=== PATIENT | male | born 1975 | race African-American/Black ===

== ENCOUNTER 2017-07-12 21:28 | Emergency (ER) | payer OTHER ==
[2017-07-12 21:42] VITALS: BP 130/69; PULSE 90; RESP 20; TEMP 100.5
[2017-07-12] MEDS ORDERED: HYDROcodone/APAP 5-325MG 1 EACH TAB PO STA (22:03)
[2017-07-12] MEDS ORDERED: IBUPROFEN 400 MG TAB PO STA (22:03)
--- NOTE | 2017-07-12 22:18 | ED ---
Back Pain HPI - General Chief Complaint: Back Pain/Injury Stated Complaint: back pain Time Seen by Provider: 07/12/17 21:53 Source: patient Limitations: no limitations - History of Present Illness Initial Comments: This patient is a 42-year-old man who presents with complaint of left low back pain. 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 Patient states that he has previously pulled muscles in his back and it feels like that's what is going on today. He describes the pain is kind of aching, Burning. The pain is worse with certain movements. Better if he is just resting. Patient denies any radiation of the pain. He is not having any weakness or numbness. No change in bladder or bowel. No abdominal pain. MD Complaint: back pain -: hour(s) Similar Symptoms Previously: Yes Place: work Radiation: none Severity: moderate Quality: burning, aching Consistency: intermittent Improves With: immobilization Worsens With: movement Context: turning/twisting, bending Associated Symptoms: denies other symptoms - Related Data Previous Rx's Medication Instructions Recorded Ibuprofen 800 mg PO Q8H #24 tablet 07/12/17 Methocarbamol [Robaxin-750] 750 mg PO TID PRN #30 tablet 07/12/17 Allergies Allergy/AdvReac Type Severity Reaction Status Date / Time No Known Allergies Allergy Verified 07/12/17 21:48 Review of Systems ROS Statement: Those systems with pertinent positive or pertinent negative responses have been documented in the HPI. ROS Other: All systems not noted in ROS Statement are negative. Constitutional: Denies: fever, chills, weakness Respiratory: Denies: cough, dyspnea Cardiovascular: Denies: chest pain, edema Gastrointestinal: Denies: abdominal pain, diarrhea, constipation Genitourinary: Denies: dysuria, frequency, hematuria, discharge, testicular pain Musculoskeletal: Reports: as per HPI, back pain Skin: Denies: rash Neurological: Denies: weakness, numbness, paresthesias Past Medical History Additional Past Medical History / Comment(s): deg disc disease History of Any Multi-Drug Resistant Organisms: None Reported Past Surgical History: Orthopedic Surgery Additional Past Surgical History / Comment(s): left knee arthroscopy Past Psychological History: Anxiety, Depression Smoking Status: Current every day smoker Past Alcohol Use History: Occasional Past Drug Use History: Marijuana General Exam Limitations: no limitations General appearance: alert, in no apparent distress Head exam: Present: atraumatic, normocephalic Eye exam: Present: normal appearance. Absent: scleral icterus, conjunctival injection ENT exam: Present: normal oropharynx Neck exam: Present: normal inspection, full ROM Respiratory exam: Present: normal lung sounds bilaterally. Absent: respiratory distress, wheezes, rales, rhonchi, stridor, chest wall tenderness Cardiovascular Exam: Present: regular rate, normal rhythm, normal heart sounds. Absent: systolic murmur, diastolic murmur, rubs, gallop GI/Abdominal exam: Present: soft. Absent: distended, tenderness, guarding, rebound, mass Extremities exam: Present: normal inspection, normal capillary refill. Absent: pedal edema, calf tenderness Back exam: Present: normal inspection, muscle spasm, paraspinal tenderness. Absent: CVA tenderness (R), CVA tenderness (L), vertebral tenderness Neurological exam: Present: alert, reflexes normal. Absent: motor sensory deficit Skin exam: Present: warm, dry, intact, normal color. Absent: rash Course Vital Signs 07/12/17 21:40 Temperature 100.5 F H Pulse Rate 90 Respiratory 20 Rate Blood Pressure 130/69 O2 Sat by Pulse 97 Oximetry Medical Decision Making - Lab Data Lab Results 07/12/17 Range/Units 22:34 Urine Color Yellow Urine Appearance Clear (Clear) Urine pH 5.5 (5.0-8.0) Ur Specific [place] 1.026 (1.001-1.035) Urine Protein Trace H (Negative) Urine Glucose (UA) Negative (Negative) Urine Ketones 1+ H (Negative) Urine Blood Moderate H (Negative) Urine Nitrite Negative (Negative) Urine Bilirubin Negative (Negative) Urine Urobilinogen 2.0 (<2.0) mg/dL Ur Leukocyte Esterase Negative (Negative) Urine RBC 7 H (0-5) /hpf Urine WBC 1 (0-5) /hpf Ur Squamous Epith Cells <1 (0-4) /hpf Urine Mucus Rare H (None) /hpf Disposition Clinical Impression: Low back strain Disposition: HOME SELF-CARE Condition: Good Instructions: Acute Low Back Pain (ED) Prescriptions: Ibuprofen 800 mg PO Q8H #24 tablet Methocarbamol [Robaxin-750] 750 mg PO TID PRN #30 tablet PRN Reason: pain Referrals: None,Stated [Primary Care Provider] - 1-2 days
[2017-07-12 22:47] LABS: Appearance,Urine Clear (Clear); Bilirubin,Urine Negative (Negative); Glucose,Urine (UA) Negative (Negative); Ketones,Urine 1+ (Negative); Leukocyte Esterase,Urine Negative (Negative); Mucus,Urine Rare /hpf; Nitrite,Urine Negative (Negative); PH, Urine 5.5 (5.0-8.0); Particle Count 2216; Protein,Urine Trace (Negative); RBC,Urine 7 /hpf (0-5); Specific Gravity,Urine 1.026 (1.001-1.035); Squamous Epithelial Cell,Urine <1 /hpf (0-4); UA Billing (MACRO vs. MICRO) MICRO; WBC,Urine 1 /hpf (0-5)
== END 2017-07-12 23:27 | disposition home or self-care (01) ==
LOC: EC 21:28
DX: S39.012A Strain of muscle, fascia and tendon of lower back, initial encounter (principal); F17.200 Nicotine dependence, unspecified, uncomplicated; X50.1XXA Overexertion from prolonged static or awkward postures, initial encounter; Y93.89 Activity, other specified
CPT/HCPCS: 81001; 99283

== ENCOUNTER 2018-01-11 09:21 | Emergency (ER) | payer OTHER ==
[2018-01-11 09:33] VITALS: BP 148/65; PULSE 75; RESP 18; TEMP 98.2
--- NOTE | 2018-01-11 10:15 | ED ---
General Adult HPI - General Chief complaint: Eye Problems Stated complaint: lt eye irritation Time Seen by Provider: 01/11/18 09:49 Source: patient, RN notes reviewed Mode of arrival: ambulatory Limitations: no limitations - History of Present Illness Initial comments: Patient is a 42-year-old male presenting today with a chief complaint of increased redness irritation and itching to the left eye over the last 2 days. He states he has had some drainage that has been crusting over in the morning. Patient denies any specific pain but states it's felt itchy and scratchy. Denies any other complaints or symptoms currently. Patient denies any recent fever, chills, shortness of breath, chest pain, back pain, abdominal pain, nausea or vomiting, headaches or visual changes, or any other complaints. - Related Data Previous Rx's Medication Instructions Recorded Ibuprofen 800 mg PO Q8H #24 tablet 07/12/17 Methocarbamol [Robaxin-750] 750 mg PO TID PRN #30 tablet 07/12/17 Tobramycin 0.3% Ophth Soln [Tobrex 1 - 2 drop BOTH EYES Q4H 7 Days ml 01/11/18 0.3% Ophth Soln] Allergies Allergy/AdvReac Type Severity Reaction Status Date / Time No Known Allergies Allergy Verified 01/11/18 09:32 Review of Systems ROS Statement: Those systems with pertinent positive or pertinent negative responses have been documented in the HPI. ROS Other: All systems not noted in ROS Statement are negative. Past Medical History Additional Past Medical History / Comment(s): deg disc disease History of Any Multi-Drug Resistant Organisms: None Reported Past Surgical History: Orthopedic Surgery Additional Past Surgical History / Comment(s): left knee arthroscopy Past Psychological History: Anxiety, Depression Smoking Status: Current every day smoker Past Alcohol Use History: Occasional Past Drug Use History: Marijuana General Exam - General Exam Comments Initial Comments: General: The patient is awake and alert, in no distress, and does not appear acutely ill. Eye: Pupils are equal, round and reactive to light, extra-ocular movements are intact. No nystagmus. Increased redness irritation to the left conjunctiva watery discharge Ears, nose, mouth and throat: There are moist mucous membranes and no oral lesions. Neck: The neck is supple, there is no tenderness or JVD. Musculoskeletal: Normal ROM, no tenderness. Strength 5/5. Sensation intact. Pulses equal bilaterally 2+. Neurological: A&O x 3. CN II-XII intact, There are no obvious motor or sensory deficits. Coordination appears grossly intact. Speech is normal. Skin: Skin is warm and dry and no rashes or lesions are noted. Psychiatric: Cooperative, appropriate mood & affect, normal judgment. Limitations: no limitations Course Vital Signs 01/11/18 09:31 Temperature 98.2 F Pulse Rate 75 Respiratory 18 Rate Blood Pressure 148/65 O2 Sat by Pulse 95 Oximetry Disposition Clinical Impression: Acute conjunctivitis Disposition: HOME SELF-CARE Condition: Good Instructions: Conjunctivitis (ED) Additional Instructions: Please use medication as discussed. Please follow-up with family doctor in the next 2 days of symptoms have not improved. Please return to emergency room if the symptoms increase or worsen or for any other concerns. Prescriptions: Tobramycin 0.3% Ophth Soln [Tobrex 0.3% Ophth Soln] 1 - 2 drop BOTH EYES Q4H 7 Days ml Referrals: Mert Narayanan MD [Primary Care Provider] - 1-2 days Time of Disposition: 10:14
== END 2018-01-11 10:26 | disposition home or self-care (01) ==
LOC: EC 09:21
DX: H10.32 Unspecified acute conjunctivitis, left eye (principal)
CPT/HCPCS: 99282

== ENCOUNTER 2018-05-09 08:46 | Emergency (ER) | payer OTHER ==
[2018-05-09 08:53] VITALS: BP 126/76; PULSE 62; RESP 18; TEMP 97.9
--- NOTE | 2018-05-09 09:35 | ED ---
Recheck HPI - General Chief Complaint: Recheck/Abnormal Lab/Rx Stated Complaint: Having trouble seeing Time Seen by Provider: 05/09/18 08:58 Source: patient, RN notes reviewed Mode of arrival: ambulatory Limitations: no limitations - History of Present Illness Initial Comments: 43-year-old male present emergency department with chief complaint of fall he vision. He states that he feels there is just a he is over his vision. He denies any injury, pain, itchiness, dryness or any drainage from his eyes. Patient states that he believes this is related to his were states that he's had other coworkers with similar symptoms but they usually resolve after leaving work and white count the next morning. Patient states she does not remember getting anything into his eye. 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 Patient states he is not diabetic. Patient states that his never really had much like this in the past other than having metal foreign body in his eye. - Related Data Previous Rx's Medication Instructions Recorded Ibuprofen 800 mg PO Q8H #24 tablet 07/12/17 Methocarbamol [Robaxin-750] 750 mg PO TID PRN #30 tablet 07/12/17 Tobramycin 0.3% Ophth Soln [Tobrex 1 - 2 drop BOTH EYES Q4H 7 Days ml 01/11/18 0.3% Ophth Soln] Allergies Allergy/AdvReac Type Severity Reaction Status Date / Time No Known Allergies Allergy Verified 05/09/18 08:48 Review of Systems ROS Statement: Those systems with pertinent positive or pertinent negative responses have been documented in the HPI. ROS Other: All systems not noted in ROS Statement are negative. Past Medical History Additional Past Medical History / Comment(s): deg disc disease History of Any Multi-Drug Resistant Organisms: None Reported Past Surgical History: Orthopedic Surgery Additional Past Surgical History / Comment(s): left knee arthroscopy Past Psychological History: No Psychological Hx Reported, Anxiety, Depression Smoking Status: Current every day smoker Past Alcohol Use History: None Reported, Occasional Past Drug Use History: None Reported, Marijuana General Exam Limitations: no limitations General appearance: alert, in no apparent distress Head exam: Present: atraumatic, normocephalic, normal inspection Eye exam: Present: normal appearance, PERRL, EOMI. Absent: scleral icterus, conjunctival injection, periorbital swelling Expanded Eyelids: Normal Inspection: Bilateral Pupils: Regular, Round: Bilateral Sclera/Conjunctival: Normal Inspection: Bilateral Anterior chamber: Normal Inspection: Bilateral Posterior chamber: Normal Inspection: Bilateral Visual acuity (R) = 20/: 20 Visual acuity (L) = 20/: 20 With correction: No IOP (R) in mmH IOP (L) in mmH IOP measured with: Tonopen ENT exam: Present: normal exam, normal oropharynx, mucous membranes moist Neck exam: Present: normal inspection. Absent: tenderness, meningismus, lymphadenopathy Respiratory exam: Present: normal lung sounds bilaterally. Absent: respiratory distress, wheezes, rales, rhonchi, stridor Cardiovascular Exam: Present: regular rate, normal rhythm, normal heart sounds. Absent: systolic murmur, diastolic murmur, rubs, gallop, clicks Course Vital Signs 05/09/18 08:49 Temperature 97.9 F Pulse Rate 62 Respiratory 18 Rate Blood Pressure 126/76 O2 Sat by Pulse 99 Oximetry Medical Decision Making - Medical Decision Making 43-year-old male presented for blurred vision. Patient has 20/20 vision on exam there is no obvious uptake with fluorescent dye and Wood's lamp he has no pain with ocular movement. Patient will follow-up with ophthalmology. Return parameters were discussed. Disposition Clinical Impression: Blurred vision, bilateral Disposition: HOME SELF-CARE Condition: Stable Instructions: Blurred Vision (ED) Additional Instructions: Please return to the Emergency Department if symptoms worsen or any other concerns. Is patient prescribed a controlled substance at d/c from ED?: No Referrals: Mert Narayanan MD [Primary Care Provider] - 1-2 days Andrew Jones MD [STAFF PHYSICIAN] - 1-2 days Time of Disposition: 09:34
[2018-05-09 09:56] LABS: Glucose,Whole Blood 105 mg/dL (75-99)
== END 2018-05-09 10:14 | disposition home or self-care (01) ==
LOC: EC 08:46
DX: H53.8 Other visual disturbances (principal); F17.200 Nicotine dependence, unspecified, uncomplicated
CPT/HCPCS: 36415; 99283

== ENCOUNTER 2021-10-09 11:44 | Inpatient (IN) | payer MEDICAID, OTHER ==
[2021-10-09 16:08] LABS: Amphetamine Screen,Urine Detected (NotDetected); Barbiturate Screen,Urine Not Detected (NotDetected); Benzodiazepines Screen,Urine Not Detected (NotDetected); Cocaine Screen,Urine Not Detected (NotDetected); Methadone Screen, Urine Not Detected (NotDetected); Opiate Screen,Urine Not Detected (NotDetected); Oxycodone Screen, Urine Not Detected (NotDetected); Phencyclidine Screen,Urine Not Detected (NotDetected); Tricyclic Antidepressant,Urine Not Detected (NotDetected); Urn Cannabinoid Scrn Detected (NotDetected)
--- NOTE | 2021-10-09 16:21 | ED ---
General Adult HPI - General Source: patient, family Mode of arrival: ambulatory Limitations: no limitations <Kenn Ballard - Last Filed: 10/09/21 16:21> <Delfin Foster - Last Filed: 10/09/21 20:11> - General Chief complaint: Psychiatric Symptoms Stated complaint: mental health Time Seen by Provider: 10/09/21 14:46 - History of Present Illness Initial comments: 46-year-old male presents to the emergency room for a chief complaint of feeling manic. Patient states he is bipolar and has not been taking his medications since 3 months ago. Patient believes he was on lithium. Patient states he feels manic and is coming off of meth. States he last used yesterday. Patient states he is having suicidal thoughts. States he is just sick of being him and wants help. Patient has no other complaints at this time including shortness of breath, chest pain, abdominal pain, nausea or vomiting, headache, or visual changes. (Kenn Ballard) - Related Data Home Medications Medication Instructions Recorded Confirmed Ibuprofen 800 mg PO Q8H PRN 10/09/21 10/09/21 Allergies Allergy/AdvReac Type Severity Reaction Status Date / Time No Known Allergies Allergy Verified 10/09/21 17:15 Review of Systems ROS Other: All systems not noted in ROS Statement are negative. <Kenn Ballard - Last Filed: 10/09/21 16:21> ROS Other: All systems not noted in ROS Statement are negative. <Delfin Foster - Last Filed: 10/09/21 20:11> ROS Statement: Those systems with pertinent positive or pertinent negative responses have been documented in the HPI. Past Medical History Additional Past Medical History / Comment(s): deg disc disease History of Any Multi-Drug Resistant Organisms: None Reported Past Surgical History: Orthopedic Surgery Additional Past Surgical History / Comment(s): left knee arthroscopy Past Psychological History: No Psychological Hx Reported, Anxiety, Bipolar, Depression Smoking Status: Current every day smoker Past Alcohol Use History: Heavy Past Drug Use History: Marijuana, Methamphetamine <Kenn Ballard - Last Filed: 10/09/21 16:21> General Exam Limitations: no limitations General appearance: alert, in no apparent distress Head exam: Present: atraumatic Eye exam: Present: normal appearance, PERRL, EOMI. Absent: scleral icterus, conjunctival injection ENT exam: Present: normal exam, mucous membranes moist Neck exam: Present: normal inspection, full ROM. Absent: tenderness Respiratory exam: Present: normal lung sounds bilaterally. Absent: respiratory distress, wheezes Cardiovascular Exam: Present: regular rate, normal rhythm, normal heart sounds GI/Abdominal exam: Present: soft, normal bowel sounds. Absent: distended, tenderness <Kenn Ballard - Last Filed: 10/09/21 16:21> Course Vital Signs 10/09/21 14:31 Temperature 99.0 F Pulse Rate 105 H Respiratory 22 Rate Blood Pressure 123/98 O2 Sat by Pulse 98 Oximetry Medical Decision Making <Knen Ballard - Last Filed: 10/09/21 16:21> - Medical Decision Making Vitals are stable. Patient is well-appearing. EPS to evaluate patient. (Kenn Ballard) - Lab Data Lab Results 10/09/21 Range/Units 15:21 Urine Opiates Screen Not Detected (NotDetected) Ur Oxycodone Screen Not Detected (NotDetected) Urine Methadone Screen Not Detected (NotDetected) Ur Propoxyphene Screen Not Detected (NotDetected) Ur Barbiturates Screen Not Detected (NotDetected) U Tricyclic Antidepress Not Detected (NotDetected) Ur Phencyclidine Scrn Not Detected (NotDetected) Ur Amphetamines Screen Detected H (NotDetected) U Methamphetamines Scrn Detected H (NotDetected) U Benzodiazepines Scrn Not Detected (NotDetected) Urine Cocaine Screen Not Detected (NotDetected) U Marijuana (THC) Screen Detected H (NotDetected) Disposition <Kenn Ballard - Last Filed: 10/09/21 16:21> <Delfin Foster - Last Filed: 10/09/21 20:11> Clinical Impression: Suicidal ideation, Depression, Bipolar disorder Disposition: TRANSFER TO PSYCH HOSP/UNIT Condition: Stable Referrals: Mert Narayanan MD [Primary Care Provider] - 1-2 days
[2021-10-09] MEDS ORDERED: LORazepam 1 MG TAB PO PRN (23:24)
[2021-10-09] MEDS ORDERED: MAGNESIUM HYDROXIDE 2,400 MG/10 ML CUP PO PRN (23:24)
[2021-10-09] MEDS ORDERED: MAG HYDROX/AL HYDROX/SIMETH 30 ML CUP PO PRN (23:24)
[2021-10-09] MEDS ORDERED: IBUPROFEN 800 MG TAB PO PRN (23:24)
[2021-10-09] MEDS ORDERED: ACETAMINOPHEN TAB 325 MG TAB PO PRN (23:24)
[2021-10-09] MEDS ORDERED: HALOPERIDOL LACTATE 5 MG/ML 1 ML VIAL IM PRN (23:26)
[2021-10-09] MEDS ORDERED: LORazepam 2 MG/ML INJ IM PRN (23:26)
[2021-10-09] MEDS ORDERED: haloperidoL 5 MG TAB PO PRN (23:26)
[2021-10-09 23:58] VITALS: RESP 20
[2021-10-10 07:35] LABS: Basophils % (A) 1 %; Eosinophils # (A) 0.3 k/uL (0-0.7); Eosinophils % (A) 5 %; HCT 48.7 % (39.0-53.0); HGB 15.8 gm/dL (13.0-17.5); Lymphocytes # (A) 2.1 k/uL (1.0-4.8); Lymphocytes % (A) 32 %; MCH 33.8 pg (25.0-35.0); MCHC 32.5 g/dL (31.0-37.0); Macrocytosis Slight; Mean Platelet Volume 7.2; Monocytes # (A) 0.5 k/uL (0-1.0); Monocytes % (A) 7 %; Neutrophils # (A) 3.5 k/uL (1.3-7.7); Neutrophils % (A) 53 %; Platelet Count 345 k/uL (150-450); RBC 4.68 m/uL (4.30-5.90); RDW 11.8 % (11.5-15.5); WBC 6.5 k/uL (3.8-10.6)
[2021-10-10 07:46] LABS: ALT 26 U/L (4-49); AST 36 U/L (17-59); African American GFR (CKD) 81 (>60 ml/min/1.73 sqM); Albumin 3.5 g/dL (3.5-5.0); Alkaline Phosphatase 63 U/L (38-126); Anion Gap 2 mmol/L; Blood Urea Nitrogen 13 mg/dL (9-20); Calcium 9.6 mg/dL (8.4-10.2); Carbon Dioxide 28 mmol/L (22-30); Chloride 106 mmol/L (98-107); Glucose 108 mg/dL (74-99); Non-African American GFR(CKD) 70 (>60 ml/min/1.73 sqM); Potassium 5.3 mmol/L (3.5-5.1); Sodium 136 mmol/L (137-145); Total Bilirubin 0.9 mg/dL (0.2-1.3); Total Protein 6.1 g/dL (6.3-8.2)
[2021-10-10] MEDS: NICOTINE 14MG/24HR PATCH TRANSDERM SCH (08:54)
[2021-10-10 11:17] LABS: Chol/HDL Ratio 3.27 Ratio; LDL Cholesterol,Calculated 121.2 mg/dL (0.0-131.0); VLDL Calculation 19.76 mg/dL (5.00-40.00)
--- NOTE | 2021-10-10 13:55 | P.HP ---
Psychiatric H&P - . H&P Date: 10/10/21 History & Physical: Allergies Allergy/AdvReac Type Severity Reaction Status Date / Time No Known Allergies Allergy Verified 10/09/21 17:15 Vital Signs Temp 97.6 F 10/09/21 23:49 Pulse 87 10/09/21 23:49 Resp 20 10/09/21 23:49 BP 117/91 10/09/21 23:49 Pulse Ox 98 10/09/21 14:31 Intake & Output 10/09/21 10/10/21 10/10/21 18:59 06:59 18:59 Weight 71.849 kg 69.4 kg Laboratory Last Values WBC 6.5 k/uL (3.8-10.6) 10/10/21 06:43 RBC 4.68 m/uL (4.30-5.90) 10/10/21 06:43 Hgb 15.8 gm/dL (13.0-17.5) 10/10/21 06:43 Hct 48.7 % (39.0-53.0) 10/10/21 06:43 MCV 104.0 fL (80.0-100.0) H 10/10/21 06:43 MCH 33.8 pg (25.0-35.0) 10/10/21 06:43 MCHC 32.5 g/dL (31.0-37.0) 10/10/21 06:43 RDW 11.8 % (11.5-15.5) 10/10/21 06:43 Plt Count 345 k/uL (150-450) 10/10/21 06:43 MPV 7.2 10/10/21 06:43 Neutrophils % 53 % 10/10/21 06:43 Lymphocytes % 32 % 10/10/21 06:43 Monocytes % 7 % 10/10/21 06:43 Eosinophils % 5 % 10/10/21 06:43 Basophils % 1 % 10/10/21 06:43 Neutrophils # 3.5 k/uL (1.3-7.7) 10/10/21 06:43 Lymphocytes # 2.1 k/uL (1.0-4.8) 10/10/21 06:43 Monocytes # 0.5 k/uL (0-1.0) 10/10/21 06:43 Eosinophils # 0.3 k/uL (0-0.7) 10/10/21 06:43 Basophils # 0.0 k/uL (0-0.2) 10/10/21 06:43 Macrocytosis Slight 10/10/21 06:43 Sodium 136 mmol/L (137-145) L 10/10/21 06:43 Potassium 5.3 mmol/L (3.5-5.1) H 10/10/21 06:43 Chloride 106 mmol/L (98-107) 10/10/21 06:43 Carbon Dioxide 28 mmol/L (22-30) 10/10/21 06:43 Anion Gap 2 mmol/L 10/10/21 06:43 BUN 13 mg/dL (9-20) 10/10/21 06:43 Creatinine 1.23 mg/dL (0.66-1.25) 10/10/21 06:43 Est GFR (CKD-EPI)AfAm 81 (>60 ml/min/1.73 sqM) 10/10/21 06:43 Est GFR (CKD-EPI)NonAf 70 (>60 ml/min/1.73 sqM) 10/10/21 06:43 Glucose 108 mg/dL (74-99) H 10/10/21 06:43 Calcium 9.6 mg/dL (8.4-10.2) 10/10/21 06:43 Total Bilirubin 0.9 mg/dL (0.2-1.3) 10/10/21 06:43 AST 36 U/L (17-59) 10/10/21 06:43 ALT 26 U/L (4-49) 10/10/21 06:43 Alkaline Phosphatase 63 U/L (38-126) 10/10/21 06:43 Total Protein 6.1 g/dL (6.3-8.2) L 10/10/21 06:43 Albumin 3.5 g/dL (3.5-5.0) 10/10/21 06:43 TSH 1.590 mIU/L (0.465-4.680) 10/10/21 06:43 Urine Opiates Screen Not Detected (NotDetected) 10/09/21 15:21 Ur Oxycodone Screen Not Detected (NotDetected) 10/09/21 15:21 Urine Methadone Screen Not Detected (NotDetected) 10/09/21 15:21 Ur Propoxyphene Screen Not Detected (NotDetected) 10/09/21 15:21 Ur Barbiturates Screen Not Detected (NotDetected) 10/09/21 15:21 U Tricyclic Antidepress Not Detected (NotDetected) 10/09/21 15:21 Ur Phencyclidine Scrn Not Detected (NotDetected) 10/09/21 15:21 Ur Amphetamines Screen Detected (NotDetected) H 10/09/21 15:21 U Methamphetamines Scrn Detected (NotDetected) H 10/09/21 15:21 U Benzodiazepines Scrn Not Detected (NotDetected) 10/09/21 15:21 Urine Cocaine Screen Not Detected (NotDetected) 10/09/21 15:21 U Marijuana (THC) Screen Detected (NotDetected) H 10/09/21 15:21 Coronavirus (PCR) Not Detected (Not Detectd) 10/09/21 20:40 10/10/21 10:29 IDENTIFYING DATA: Patient is a 46-year-old -H[place]ian male, who is currently and has 1 kid and was living in a house HPI: Patient presented to the hospital yesterday with a chief complaint of "feeling manic" according to the report. Report also stated the patient has a history of bipolar disorder and has been off of his medications for the past 3 months. Patient believes that he was on lithium in the past. He claims that he also has been using methamphetamine and last use was yesterday. Patient was endorsing suicidal thoughts in the ER. His UDS was positive for methamphetamine, amphetamines and THC. Patient was seen wandering the hallways and was agreeable to seek to senior underwriter today. Patient appeared to be fairly calm and directable during the interview. He states that he was feeling depressed and has been dealing with bipolar disorder for the past 6 years. He states that he came from [place] about 2 months ago and has not been established in the mental health system here in the area. He claims that he used to be on Seroquel and lithium to control his bipolar disorder and states that I used to work very well for him. He claims that he has been "sick of living like this" and was feeling depressed and suicidal before coming in the hospital. He states that he was using methamphetamine approximately one time a week spending around $20 and states that she has cut down significantly from what he used to use. He states that he's also been using marijuana daily and drinking alcohol approximately one beer a day. He denied any history of complicated withdrawals. He states that he does not want to go back to live with his because "they're evil". He did endorse some mild paranoia towards other people in [place] towards him. He claims that his sleep and appetite have been fair. He claims that he is hearing voices at times and claims that they're mainly "whispering". Patient denies any current suicidal or homicidal ideations intent or plan. At this time patient denies any visual hallucinations. Patient denies any flight of ideas racing thoughts and increased in goal directed behavior. Patient admits to using recreational drugs as noted above. He currently uses cigarettes as well. PAST PSYCHIATRIC HISTORY: Patient states that his history of bipolar disorder and polysubstance abuse. He was previously on Lamictal and Seroquel. He apparently has been off of his medications for the past 3 months. He claims that he has been psychiatrically hospitalized 3 times in the past in [place] and his last hospitalization was 4 months ago. Patient denies any psychiatric outpatient follow-up. He claims that he did have 1 suicide attempt overdosing in 2010. PMH:deg disc disease ALLERGIES: as per EMR CHEMICAL DEPENDENCY HISTORY: as per HPI FAMILY PSYCHIATRIC/SUBSTANCE USE HISTORY: Is unsure SOCIAL HISTORY: Patient was born and raised in [facility]. He states that he spent some time in [place] and also in [place] and is now back in [place]. He claims that he completed his GED. He states that he [facility] including larceny and armed robbery. 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 He is currently and has 1 adult who is estranged to him. MENTAL STATUS EXAM: General Appearance: Patient appears to be well built, clean cut, stated age is alert, directable, and attempts to cooperate. Patient appears to have fair hygiene and grooming. Behavior: Patient is seated without any agitated behavior. Speech: Patient's speech is fluent and nonpressured. Mood/Affect: Patient reports their mood is depressed and anxious, affect is congruent Suicidality/Homicidality: Patient denies having any homicidal ideation intent or plan. Admits to mild suicidal ideations however no current intent or plan. Perceptions: Patient denies any visual hallucinations admits to auditory hallucinations of "whispering". Though content/process: She is fairly goal directed. Logical. Focus on his symptoms. Memory and concentration: AOX3, grossly intact for the purposes of this session. Can spell "WORLD" backwards Judgment and insight: poor STRENGTHS/WEAKNESSES: strength is that patient is resilient. Weakness is that patient has poor judgment and chronic history of substance abuse and mental illness. INTELLECT: average IMPRESSIONS: Bipolar disorder, current episode depressed Methamphetamine abuse Cannabis use disorder Nicotine dependence PLAN: -Patient is admitted under voluntary status to MHU for stabilization of psychiatric symptoms and safety. Patient has signed adult voluntary form and is placed in patient's chart. -Medications : Will start patient on lithium 300 mg twice a day for mood stabilization. Seroquel 50 mg daily at bedtime for mood stabilization/insomnia. -Ativan and Haldol PRN for agitation/aggression -Patient was counselled on substance abuse and desired to cut back on use -Patient was informed of the risks, benefits and side effects of the medication and patient verbally consented to taking the medications. Patient signed med consent form and was placed in chart. -Internal Medicine consult to perform medical evaluation and physical. -NRT - nicotine patch -SW on board for discharge planning. Encourage patient to participate in groups to work on coping skills. Patient is currently interested in sober living [facility]. Patient is hopeful to be directly discharged from the hospital to one of these facilities. 10/10/21 13:19 10/10/21 13:49
[2021-10-10] MEDS: LITHIUM CARBONATE 300 MG CAP PO SCH ×2 (16:00→20:45)
[2021-10-10] MEDS ORDERED: QUEtiapine 50 MG TAB PO SCH (21:00)
[2021-10-10 23:54] LABS: Amorphous Sediment,Urine Few /hpf; Appearance,Urine Turbid (Clear); Bacteria,Urine Rare /hpf; Bilirubin,Urine Negative (Negative); Blood,Urine Small (Negative); Calcium Oxalate Crystals,Urine Occasional /hpf; Color,Urine Yellow; Glucose,Urine (UA) Negative (Negative); Ketones,Urine Negative (Negative); Leukocyte Esterase,Urine Negative (Negative); Mucus,Urine Rare /hpf; Nitrite,Urine Negative (Negative); PH, Urine 5.5 (5.0-8.0); Protein,Urine Negative (Negative); RBC,Urine 1 /hpf (0-5); Specific Gravity,Urine 1.029 (1.001-1.035); Urobilinogen,Urine <2.0 mg/dL (<2.0)
--- NOTE | 2021-10-11 00:48 | P.CONS ---
History of Present Illness - Reason for Consult Consult date: 10/10/21 - History of Present Illness Patient is a 46-year-old male with a PMH of polysubstance abuse who had presented to the emergency room due to person and suicidal ideation. The patient was admitted to the mental health or when he was seen and evaluated. The patient reports that he has been struggling with his substance abuse for several years now, and it has gotten to a point where he does not wish to continue living as he feels he is wasting his life away. He reports his last use of methamphetamines a few days prior to arrival along with marijuana use. He denied alcohol use. Denied tobacco use. Further denied any physical complaints at the time of interview. Denied chest discomfort, shortness of breath, chills, cough, nausea, vomiting, abdominal pain, diarrhea. Review of systems: Pertinent positives and negatives as discussed in HPI, a complete review of systems was performed and all other systems are negative. Physical examination: General: non toxic, no distress, appears at stated age, normal weight Derm: no unusual rashes/lesions no unusual ecchymoses, warm, dry Head: atraumatic, normocephalic, symmetric Eyes: EOMI, no lid lag, anicteric sclera, pupils equal round reactive to light ENT: Nose and ears atraumatic, no thrush, no pharyngeal erythema Neck: No thyromegaly, no cervical lymphadenopathy, trachea midline, supple Mouth: no lip lesion, mucus membranes moist Cardiovascular: S1S2 reg, no murmur, positive posterior tibial pulse bilateral, no edema, capillary refill less than 2 seconds Lungs: CTA bilateral, no rhonchi, no rales , no accessory muscle use Abdominal: soft, nontender to palpation, no guarding, no appreciable organomegaly, normal bowel sounds Ext: no gross muscle atrophy, muscle strength 5 out of 5 in all 4 extremities grossly, no contractures, Neuro: CN II-XI grossly intact, light touch intact all 4 extremities, finger to nose within normal limits, Psych: Alert, oriented, appropriate affect Assessment/plan Polysubstance abuse -Strongly advised on the importance of cessation Hyperkalemia and chronic kidney disease -Monitor for now Depression and suicidal ideation -As per psychiatry Thank you for allowing us to participate in the care of this patient. We will follow peripherally. Do not hesitate to contact us with questions. Someone can be reached from the [facility] hospitalist group at all hours of the day at [phone]. Past Medical History Past Medical History: No Reported History Additional Past Medical History / Comment(s): deg disc disease History of Any Multi-Drug Resistant Organisms: None Reported Past Surgical History: Orthopedic Surgery Additional Past Surgical History / Comment(s): left knee arthroscopy Past Anesthesia/Blood Transfusion Reactions: No Reported Reaction Smoking Status: Current every day smoker Medications and Allergies Home Medications Medication Instructions Recorded Confirmed Type Ibuprofen 800 mg PO Q8H PRN 10/09/21 10/09/21 History Allergies Allergy/AdvReac Type Severity Reaction Status Date / Time No Known Allergies Allergy Verified 10/09/21 17:15 Results CBC & Chem 7: 10/10/21 06:43 10/10/21 06:43 Labs: Abnormal Lab Results - Last 24 Hours (Table) 10/09/21 10/10/21 10/10/21 Range/Units 15:21 06:43 06:43 MCV 104.0 H (80.0-100.0) fL Sodium 136 L (137-145) mmol/L Potassium 5.3 H (3.5-5.1) mmol/L Glucose 108 H (74-99) mg/dL Total Protein 6.1 L (6.3-8.2) g/dL Cholesterol 203.00 H (0.00-200.00) mg/dL HDL Cholesterol 62.00 H (40.00-60.00) mg/dL Urine Blood Small H (Negative) Calcium Oxalate Crystal Occasional H (None) /hpf Amorphous Sediment Few H (None) /hpf Urine Bacteria Rare H (None) /hpf Urine Mucus Rare H (None) /hpf
[2021-10-11 08:53] LABS: Calcium 9.5 mg/dL (8.4-10.2); Potassium 4.9 mmol/L (3.5-5.1)
[2021-10-11] MEDS: LITHIUM CARBONATE 300 MG CAP PO SCH ×2 (09:15→22:13)
[2021-10-11] MEDS: NICOTINE 14MG/24HR PATCH TRANSDERM SCH ×2 (09:15→09:21)
--- NOTE | 2021-10-11 11:23 | P.PN ---
Progress Note - Text Progress Note Date: 10/11/21 Interval History: Patient was seen resting in bed and was directable and agreeable to speak with automatic typewriter inspector in the office. She reports that he is feeling better today. He states that his mind is starting to slow down after racing due to substance use and the bipolar disorder. He has been adherent with his medications and is not endorsing any significant side effects at this time. The patient denies any auditory or visual hallucinations. He reports that his paranoia subsiding and is denying any other delusions. He is not reporting any suicidal or homicidal ideation, intention, and/or plan. He is future oriented and states that he will call the access number today to pursue rehabilitation. Mental Status Exam: General Appearance: Patient appears to be stated age is alert, directable, and cooperative. Well kempt hygiene, thin and muscular male. Behavior: Patient is calmly seated without any agitated behavior. Psychomotor activity slightly elevated. Speech: Patient's speech is fluent and nonpressured. Hyperverbal and rapid but interruptible. Mood/Affect: Mood is improving mildly, affect is congruent and expansive. Suicidality/Homicidality: Patient denies having any suicidal or homicidal ideation intent or plan. Perceptions: Patient denies any visual hallucinations and denies any auditory hallucinations Though content/process: There is no evidence of any delusional thought content and thought process is linear and goal-directed. Memory and concentration: AOX3, grossly intact for the purposes of this session Judgment and insight: Improving mildly Vital Signs Temp 97.6 F 10/09/21 23:49 Pulse 87 10/09/21 23:49 Resp 20 10/09/21 23:49 BP 117/91 10/09/21 23:49 Pulse Ox 98 10/09/21 14:31 Laboratory Results - Last 24 Hours 10/09/21 10/10/21 10/11/21 15:21 06:43 07:49 Sodium 137 Potassium 4.9 Chloride 106 Carbon Dioxide 26 Anion Gap 5 BUN 15 Creatinine 1.26 H Est GFR (CKD-EPI)AfAm 78 Est GFR (CKD-EPI)NonAf [address] Glu mg/dL 123 Hemoglobin A1c 5.9 Calcium 9.5 Urine Color Yellow Urine Appearance Turbid Urine pH 5.5 Ur Specific [place] 1.029 Urine Protein Negative Urine Glucose (UA) Negative Urine Ketones Negative Urine Blood Small H Urine Nitrite Negative Urine Bilirubin Negative Urine Urobilinogen <2.0 Ur Leukocyte Esterase Negative Urine RBC 1 Calcium Oxalate Crystal Occasional H Amorphous Sediment Few H Urine Bacteria Rare H Urine Mucus Rare H Assessment Bipolar disorder, current episode depressed Methamphetamine abuse Cannabis use disorder Nicotine dependence Plan: -Patient continues to meet criteria for inpatient psychiatric admission for symptom stabilization and safety. Patient has signed adult voluntary form and medication consent and was placed in patient's chart. -Medications: Continue lithium 300 mg by mouth twice a day for mood stabilization Increase Seroquel to 100 mg by mouth at bedtime for mood stabilization -When necessary Ativan and Haldol for agitation/aggression. -NRT - nicotine patch -SW on board for discharge planning. Encouraged the patient to participate in milieu.
[2021-10-11] MEDS: QUEtiapine 100 MG TAB PO SCH (22:13)
[2021-10-12] MEDS: NICOTINE 14MG/24HR PATCH TRANSDERM SCH (08:51)
[2021-10-12] MEDS: LITHIUM CARBONATE 300 MG CAP PO SCH ×2 (08:51→20:49)
[2021-10-12 10:19] VITALS: BP 106/56; PULSE 84; TEMP 98.7
--- NOTE | 2021-10-12 11:12 | P.PN ---
Progress Note - Text Progress Note Date: 10/12/21 Interval History: Patient was seen resting in bed and was directable and agreeable to speak with jingle writer in his room. Currently, the patient is not endorsing any significant issues with him and/or plan. He is not reporting any auditory or visual hallucinations. He denies any paranoia or delusions. He denies any issues regarding his sleep or his appetite. He has been adherent with his medications does not endorse any significant side effects at this time. The patient remains future oriented and states that he is planning to move down to [place] to be with his mother in order to start fresh. Mental Status Exam: General Appearance: Patient appears to be stated age is alert, directable, and cooperative. Well kempt hygiene, thin and muscular male. Behavior: Patient is calmly seated without any agitated behavior. Psychomotor activity is normal today. Speech: Patient's speech is fluent and nonpressured. Mood/Affect: Mood is improving mildly, affect is congruent and euthymic. Suicidality/Homicidality: Patient denies having any suicidal or homicidal ideation intent or plan. Perceptions: Patient denies any visual hallucinations and denies any auditory hallucinations Though content/process: There is no evidence of any delusional thought content and thought process is linear and goal-directed. Patient is future oriented. Memory and concentration: AOX3, grossly intact for the purposes of this session Judgment and insight: Improving mildly Vital Signs Temp 98.7 F 10/12/21 10:17 Pulse 84 10/12/21 10:17 Resp 20 10/09/21 23:49 BP 106/56 10/12/21 10:17 Pulse Ox 98 10/09/21 14:31 Assessment Bipolar disorder, current episode depressed Methamphetamine abuse Cannabis use disorder Nicotine dependence Plan: -Patient continues to meet criteria for inpatient psychiatric admission for symptom stabilization and safety. Patient has signed adult voluntary form and medication consent and was placed in patient's chart. -Medications: Continue lithium 300 mg by mouth twice a day for mood stabilization Continue Seroquel 100 mg by mouth at bedtime for mood stabilization -When necessary Ativan and Haldol for agitation/aggression. -NRT - nicotine patch -SW on board for discharge planning. Encouraged the patient to participate in milieu.
[2021-10-12] MEDS: QUEtiapine 100 MG TAB PO SCH (20:49)
[2021-10-13] MEDS: NICOTINE 14MG/24HR PATCH TRANSDERM SCH (08:12)
[2021-10-13] MEDS: LITHIUM CARBONATE 300 MG CAP PO SCH (08:42)
--- NOTE | 2021-10-13 11:24 | P.DS ---
Providers Date of admission: 10/09/21 22:54 Expected date of discharge: 10/13/21 Attending physician: Cristian Patel MD Consults: 10/09/21 23:24 Consult Physician Routine Consulting Provider: Adrianna Physician Consult Reason/Comments: H&P and medical Do you want consulting provider notified?: Yes Primary care physician: Mert Morelos Kut - Discharge Diagnosis(es) (1) Bipolar disorder Current Visit: Yes Status: Acute Priority: High (2) Methamphetamine abuse Current Visit: Yes Status: Chronic Priority: Medium (3) Cannabis abuse Current Visit: Yes Status: Chronic Priority: Medium (4) Nicotine dependence Current Visit: Yes Status: Chronic Priority: Medium Hospital Course: Admission HPI: Patient is a 46-year-old -[place]ian male, who is currently and has 1 kid and was living in a house Patient presented to the hospital yesterday with a chief complaint of "feeling manic" according to the report. Report also stated the patient has a history of bipolar disorder and has been off of his medications for the past 3 months. Patient believes that he was on lithium in the past. He claims that he also has been using methamphetamine and last use was yesterday. Patient was endorsing suicidal thoughts in the ER. His UDS was positive for methamphetamine, amphetamines and THC. Patient was seen wandering the hallways and was agreeable to seek to parts data writer today. Patient appeared to be fairly calm and directable during the interview. He states that he was feeling depressed and has been dealing with bipolar disorder for the past 6 years. He states that he came from [place] about 2 months ago and has not been established in the mental health system here in the area. He claims that he used to be on Seroquel and lithium to control his bipolar disorder and states that I used to work very well for him. He claims that he has been "sick of living like this" and was feeling depressed and suicidal before coming in the hospital. He states that he was using methamphetamine approximately one time a week spending around $20 and states that she has cut down significantly from what he used to use. He states that he's also been using marijuana daily and drinking alcohol approximately one beer a day. He denied any history of complicated withdrawals. He states that he does not want to go back to live with his because "they're evil". He did endorse some mild paranoia towards other people in [place] towards him. He claims that his sleep and appetite have been fair. He claims that he is hearing voices at times and claims that they're mainly "whispering". Patient denies any current suicidal or homicidal ideations intent or plan. At this time patient denies any visual hallucinations. Patient denies any flight of ideas racing thoughts and increased in goal directed behavior. Patient admits to using recreational drugs as noted above. He currently uses cigarettes as well. Patient states that his history of bipolar disorder and polysubstance abuse. He was previously on Lamictal and Seroquel. He apparently has been off of his medications for the past 3 months. He claims that he has been psychiatrically hospitalized 3 times in the past in [place] and his last hospitalization was 4 months ago. Patient denies any psychiatric outpatient follow-up. He claims that he did have 1 suicide attempt overdosing in 2010. Hospital course: Upon admission to the unit patient was initially sent psychotic symptoms and "feeling manic.". Patient was however directable and agreeable to commence treatment. Patient got along well with other patients on the unit and followed unit protocol. Patient was compliant with the medications and denied any side effects throughout hospital course. Patient was started on lithium and Seroquel for mood stabilization and insomnia. Patient spoke of his stressors and engaged in therapy both group and individual. Patient was also seen by medical team for history and physical exam. Patient's Seroquel was gradually titrated patients with significant improvement over the course of the hospitalization regards to his mood stability, psychotic symptoms, and sleep. The patient also developed further insight and judgment during his hospitalization became more future oriented with a plan to move down to [place] to be with his mother to avoid substance use in his community. On the day of discharge, the patient is not reporting any suicidal or homicidal ideation, intention,/or plan. He is not reporting any auditory or visual hallucinations. He is not reporting any paranoia or delusions. The patient has been adherent with his medications and is not endorsing any significant side effects at this time. The patient was counseled at length on the importance of medication adherence and appropriate outpatient follow-up. Furthermore, the patient does have a significant history substance abuse and was counseled at great length on abstaining from all substances, in particular methamphetamines. The patient was offered however declined inpatient substance-abuse rehabilitation instead opting to move down to [place] to be with his mother. Prior to discharge, family meeting will be arranged by social media marketer to answer questions and ensure safety. Mental status exam: General Appearance: Patient appears to be stated age is alert, pleasant, and cooperative. Patient is in no acute distress and has fair hygiene and grooming Behavior: Patient is calmly seated without any agitated behavior. Speech: Patient's speech is fluent and nonpressured. Mood/Affect: Patient reports their mood is "much better", affect is congruent and euthymic. Suicidality/Homicidality: Patient denies having any suicidal or homicidal ideation intent or plan. Perceptions: Patient denies any auditory or visual hallucinations. Though content/process: There is no evidence of any delusional thought content and thought process is linear and goal-directed. Patient is future oriented. Memory and concentration: AOX3, grossly intact for the purposes of this session. Can spell "WORLD" backwards correctly. Judgment and insight: Improved with guarded prognosis Vital Signs Temp 98.7 F 10/12/21 10:17 Pulse 84 10/12/21 10:17 Resp 20 10/09/21 23:49 BP 106/56 10/12/21 10:17 Pulse Ox 98 10/09/21 14:31 Impression: Bipolar 2 disorder, depressive episode Methamphetamine abuse Cannabis use disorder Nicotine dependence Plan: -Continue with discharge today as patient has improved and stabilized psychiatrically and is not currently an imminent threat to himself and/or others. Patient will remain at chronically elevated risk for harm to self and/or others due to his impulsivity and polysubstance abuse. -Continue medications: [employer] 300 mg by mouth twice a day for mood stabilization Seroquel 100 mg daily at bedtime for mood stabilization -Patient was counseled on the need for medication compliance and appropriate follow-up at mental health and also primary care for medical issues. Patient verbalized understanding and agreed. -Social work to arrange for and conduct family meeting to ensure safety upon discharge and answer any questions/concerns. Social work also to arrange for patients follow up appointments with [facility] in [place] for psychiatric care along with follow up with primary care provider. -Patient counseled on abstaining from recreational drugs and marijuana and alcohol. Was informed/educated on the adverse effects on their physical and mental health. Patient verbally agreed and understood. -Patient was instructed to return to the hospital or seek immediate medical care if their psychiatric or medical symptoms do worsen or reoccur. -Psychoeducation and supportive therapy provided to patient. Risks and benefits of pharmacological treatment versus the risks and benefits of nontreatment weight and discussed. Informed consent discussion held. Common side effects of psychotropics discussed such as, but not limited to headache, GI disturbance, sexual dysfunction, movement disorders, sedation, and orthostatic hypotension. Life threatening and blackbox warnings of prescribed medications also discussed. Potential risks of operating a vehicle or heavy machinery discussed with patient at length. Advised on importance of compliance and a reliable and responsible manner. Patient advised to review FDA consumer labeling of all medications prior to taking. Patient verbalized understanding of potential risks, and agrees with current treatment plan. Patient advised to medically contact physician/emergency personnel if any acute changes in condition occur. Allergies Allergy/AdvReac Type Severity Reaction Status Date / Time No Known Allergies Allergy Verified 10/09/21 17:15 Laboratory Results WBC 6.5 k/uL (3.8-10.6) 10/10/21 06:43 RBC 4.68 m/uL (4.30-5.90) 10/10/21 06:43 Hgb 15.8 gm/dL (13.0-17.5) 10/10/21 06:43 Hct 48.7 % (39.0-53.0) 10/10/21 06:43 MCV 104.0 fL (80.0-100.0) H 10/10/21 06:43 MCH 33.8 pg (25.0-35.0) 10/10/21 06:43 MCHC 32.5 g/dL (31.0-37.0) 10/10/21 06:43 RDW 11.8 % (11.5-15.5) 10/10/21 06:43 Plt Count 345 k/uL (150-450) 10/10/21 06:43 MPV 7.2 10/10/21 06:43 Neutrophils % 53 % 10/10/21 06:43 Lymphocytes % 32 % 10/10/21 06:43 Monocytes % 7 % 10/10/21 06:43 Eosinophils % 5 % 10/10/21 06:43 Basophils % 1 % 10/10/21 06:43 Neutrophils # 3.5 k/uL (1.3-7.7) 10/10/21 06:43 Lymphocytes # 2.1 k/uL (1.0-4.8) 10/10/21 06:43 Monocytes # 0.5 k/uL (0-1.0) 10/10/21 06:43 Eosinophils # 0.3 k/uL (0-0.7) 10/10/21 06:43 Basophils # 0.0 k/uL (0-0.2) 10/10/21 06:43 Macrocytosis Slight 10/10/21 06:43 Sodium 137 mmol/L (137-145) 10/11/21 07:49 Potassium 4.9 mmol/L (3.5-5.1) 10/11/21 07:49 Chloride 106 mmol/L (98-107) 10/11/21 07:49 Carbon Dioxide 26 mmol/L (22-30) 10/11/21 07:49 Anion Gap 5 mmol/L 10/11/21 07:49 BUN 15 mg/dL (9-20) 10/11/21 07:49 Creatinine 1.26 mg/dL (0.66-1.25) H 10/11/21 07:49 Est GFR (CKD-EPI)AfAm 78 (>60 ml/min/1.73 sqM) 10/11/21 07:49 Est GFR (CKD-EPI)NonAf 67 (>60 ml/min/1.73 sqM) 10/11/21 07:49 Glucose 103 mg/dL (74-99) H 10/11/21 07:[address] Glu mg/dL 123 10/10/21 06:43 Hemoglobin A1c 5.9 % (4.0-6.0) 10/10/21 06:43 Calcium 9.5 mg/dL (8.4-10.2) 10/11/21 07:49 Total Bilirubin 0.9 mg/dL (0.2-1.3) 10/10/21 06:43 AST 36 U/L (17-59) 10/10/21 06:43 ALT 26 U/L (4-49) 10/10/21 06:43 Alkaline Phosphatase 63 U/L (38-126) 10/10/21 06:43 Total Protein 6.1 g/dL (6.3-8.2) L 10/10/21 06:43 Albumin 3.5 g/dL (3.5-5.0) 10/10/21 06:43 Triglycerides 98.80 mg/dL (0.00-149.00) 10/10/21 06:43 Cholesterol 203.00 mg/dL (0.00-200.00) H 10/10/21 06:43 LDL Cholesterol, Calc 121.2 mg/dL (0.0-131.0) 10/10/21 06:43 VLDL Cholesterol, Calc 19.76 mg/dL (5.00-40.00) 10/10/21 06:43 HDL Cholesterol 62.00 mg/dL (40.00-60.00) H 10/10/21 06:43 Cholesterol/HDL Ratio 3.27 Ratio 10/10/21 06:43 TSH 1.590 mIU/L (0.465-4.680) 10/10/21 06:43 Urine Color Yellow 10/09/21 15:21 Urine Appearance Turbid (Clear) 10/09/21 15:21 Urine pH 5.5 (5.0-8.0) 10/09/21 15:21 Ur Specific [place] 1.029 (1.001-1.035) 10/09/21 15:21 Urine Protein Negative (Negative) 10/09/21 15:21 Urine Glucose (UA) Negative (Negative) 10/09/21 15:21 Urine Ketones Negative (Negative) 10/09/21 15:21 Urine Blood Small (Negative) H 10/09/21 15:21 Urine Nitrite Negative (Negative) 10/09/21 15:21 Urine Bilirubin Negative (Negative) 10/09/21 15:21 Urine Urobilinogen <2.0 mg/dL (<2.0) 10/09/21 15:21 Ur Leukocyte Esterase Negative (Negative) 10/09/21 15:21 Urine RBC 1 /hpf (0-5) 10/09/21 15:21 Calcium Oxalate Crystal Occasional /hpf (None) H 10/09/21 15:21 Amorphous Sediment Few /hpf (None) H 10/09/21 15:21 Urine Bacteria Rare /hpf (None) H 10/09/21 15:21 Urine Mucus Rare /hpf (None) H 10/09/21 15:21 Urine Opiates Screen Not Detected (NotDetected) 10/09/21 15:21 Ur Oxycodone Screen Not Detected (NotDetected) 10/09/21 15:21 Urine Methadone Screen Not Detected (NotDetected) 10/09/21 15:21 Ur Propoxyphene Screen Not Detected (NotDetected) 10/09/21 15:21 Ur Barbiturates Screen Not Detected (NotDetected) 10/09/21 15:21 U Tricyclic Antidepress Not Detected (NotDetected) 10/09/21 15:21 Ur Phencyclidine Scrn Not Detected (NotDetected) 10/09/21 15:21 Ur Amphetamines Screen Detected (NotDetected) H 10/09/21 15:21 U Methamphetamines Scrn Detected (NotDetected) H 10/09/21 15:21 U Benzodiazepines Scrn Not Detected (NotDetected) 10/09/21 15:21 [employer] 0.4 mmol/L 10/13/21 07:37 Urine Cocaine Screen Not Detected (NotDetected) 10/09/21 15:21 U Marijuana (THC) Screen Detected (NotDetected) H 10/09/21 15:21 Coronavirus (PCR) Not Detected (Not Detectd) 10/09/21 20:40 Patient Condition at Discharge: Stable Plan - Discharge Summary Discharge Rx Participant: No New Discharge Prescriptions: New [employer] Carbonate 300 mg PO BID 30 Days cap Nicotine 14Mg/24Hr Patch [Habitrol] 1 patch TRANSDERM DAILY 30 Days patch QUEtiapine [SEROquel] 100 mg PO HS 30 Days tab Discontinued Ibuprofen 800 mg PO Q8H PRN PRN Reason: Pain Or Fever > 100.5 Discharge Medication List [employer] Carbonate 300 mg PO BID 30 Days cap 10/13/21 [Rx] Nicotine 14Mg/24Hr Patch [Habitrol] 1 patch TRANSDERM DAILY 30 Days patch 10/13/21 [Rx] QUEtiapine [SEROquel] 100 mg PO HS 30 Days tab 10/13/21 [Rx] Follow up [facility]ment(s[facility]Other] - 1 Week (Pt needs to contact [facility] at [phone] to enroll in services. ) Mert Narayanan MD [Primary Care Provider] - 1-2 days Patient Instructions/Handouts: How to Stop Smoking (DC), Bipolar Disorder (DC), Depression (DC) Activity/Diet/Wound Care/Special Instructions: Activity and diet as tolerated. Avoid the use of street drugs and alcohol. Take all medications as prescribed. When you are in need of refills on your medications please contact your medical provider and/or outpatient psychiatrist to have this done. Please go to scheduled outpatient appointment for aftercare treatment. If symptoms return or become worse, call the crisis line at and/or go to the nearest emergency room for evaluation Discharge Disposition: HOME SELF-CARE
== END 2021-10-13 13:27 | disposition home or self-care (01) | DRG 885 ==
LOC: EC 11:44 → 3MHU 22:54
PROVIDERS: ADMIT Psychiatry & Neurology Psychiatry; ATTEND Psychiatry & Neurology Psychiatry
DX: F31.30 Bipolar disorder, current episode depressed, mild or moderate severity, unspecified (principal); R45.851 Suicidal ideations; F31.81 Bipolar II disorder; F12.10 Cannabis abuse, uncomplicated; F15.10 Other stimulant abuse, uncomplicated; E87.5 Hyperkalemia; F17.200 Nicotine dependence, unspecified, uncomplicated; F22 Delusional disorders; G47.00 Insomnia, unspecified; N18.9 Chronic kidney disease, unspecified; Z63.8 Other specified problems related to primary support group; Z79.899 Other long term (current) drug therapy; Z91.14 Patient's other noncompliance with medication regimen; Z20.822 Contact with and (suspected) exposure to COVID-19
CPT/HCPCS: 80048; 80053; 80061; 80178; 80306; 81001; 82075; 83036; 84443; 85025; 87635; 99285

== ENCOUNTER 2021-12-27 22:10 | Emergency (ER) | payer OTHER ==
--- NOTE | 2021-12-27 23:10 | ED ---
Psych HPI - General Chief Complaint: Psychiatric Symptoms Stated Complaint: Mental Health Time Seen by Provider: 12/27/21 22:41 Source: patient Mode of arrival: ambulatory - History of Present Illness Initial Comments: Patient is a 46-year-old man with history of bipolar disorder who states he has been feeling more depressed recently and having suicidal thoughts. MD Complaint: suicidal ideation, feels depressed -: days(s) Associated Psychiatric Symptoms: depression, suicidal ideation Quality: getting worse Improves With: none Worsens With: none Context: recent drug abuse Associated Symptoms: denies other symptoms - Related Data Home Medications Medication Instructions Recorded Confirmed Nicotine 14Mg/24Hr Patch [Habitrol] 1 patch TRANSDERM DAILY PRN 12/27/21 12/27/21 Previous Rx's Medication Instructions Recorded [place] Carbonate 300 mg PO BID 30 Days cap 10/13/21 QUEtiapine [SEROquel] 100 mg PO HS 30 Days tab 10/13/21 Allergies Allergy/AdvReac Type Severity Reaction Status Date / Time No Known Allergies Allergy Verified 12/27/21 23:13 Review of Systems ROS Statement: Those systems with pertinent positive or pertinent negative responses have been documented in the HPI. ROS Other: All systems not noted in ROS Statement are negative. Constitutional: Denies: fever, chills Respiratory: Denies: cough, dyspnea Cardiovascular: Denies: chest pain, palpitations Gastrointestinal: Denies: abdominal pain, vomiting, diarrhea Genitourinary: Denies: dysuria, hematuria Musculoskeletal: Denies: back pain Skin: Denies: rash Neurological: Denies: headache, weakness Psychiatric: Reports: depression, suicidal thoughts. Denies: auditory hallucinations, visual hallucinations, homicidal thoughts Past Medical History Past Medical History: No Reported History Additional Past Medical History / Comment(s): deg disc disease History of Any Multi-Drug Resistant Organisms: None Reported Past Surgical History: Orthopedic Surgery Additional Past Surgical History / Comment(s): left knee arthroscopy Past Anesthesia/Blood Transfusion Reactions: No Reported Reaction Past Psychological History: No Psychological Hx Reported, Anxiety, Bipolar, Depression Smoking Status: Current every day smoker Past Alcohol Use History: Heavy Past Drug Use History: Marijuana General Exam Limitations: no limitations General appearance: alert, in no apparent distress Head exam: Present: atraumatic, normocephalic Eye exam: Present: normal appearance. Absent: scleral icterus, conjunctival injection Respiratory exam: Present: normal lung sounds bilaterally. Absent: respiratory distress, wheezes, rales, rhonchi, stridor Cardiovascular Exam: Present: regular rate, normal rhythm, normal heart sounds. Absent: systolic murmur, diastolic murmur, rubs, gallop GI/Abdominal exam: Present: soft. Absent: distended, tenderness, guarding, rebound, rigid, mass Extremities exam: Present: normal inspection, normal capillary refill Back exam: Present: normal inspection. Absent: CVA tenderness (R), CVA tenderness (L) Neurological exam: Present: alert Skin exam: Present: warm, dry, intact, normal color. Absent: rash Course Vital Signs 12/27/21 22:23 Temperature 98.6 F Pulse Rate 93 Respiratory 16 Rate Blood Pressure 132/79 O2 Sat by Pulse 97 Oximetry Medical Decision Making - Lab Data Lab Results 12/27/21 Range/Units 22:55 Urine Opiates Screen Not Detected (NotDetected) Ur Oxycodone Screen Not Detected (NotDetected) Urine Methadone Screen Not Detected (NotDetected) Ur Propoxyphene Screen Not Detected (NotDetected) Ur Barbiturates Screen Not Detected (NotDetected) U Tricyclic Antidepress Not Detected (NotDetected) Ur Phencyclidine Scrn Not Detected (NotDetected) Ur Amphetamines Screen Detected H (NotDetected) U Methamphetamines Scrn Detected H (NotDetected) U Benzodiazepines Scrn Not Detected (NotDetected) Urine Cocaine Screen Not Detected (NotDetected) U Marijuana (THC) Screen Detected H (NotDetected) Disposition Clinical Impression: Mood disorder Disposition: HOME SELF-CARE Condition: Good Instructions (If sedation given, give patient instructions): Mood Disorders (ED) Is patient prescribed a controlled substance at d/c from ED?: No Referrals: Mert Narayanan MD [Primary Care Provider] - 1-2 days
[2021-12-27 23:51] LABS: Cocaine Screen,Urine Not Detected (NotDetected); Opiate Screen,Urine Not Detected (NotDetected); Phencyclidine Screen,Urine Not Detected (NotDetected); Urn Cannabinoid Scrn Detected (NotDetected)
[2021-12-27 23:52] LABS: Amphetamine Screen,Urine Detected (NotDetected); Barbiturate Screen,Urine Not Detected (NotDetected); Benzodiazepines Screen,Urine Not Detected (NotDetected); Methadone Screen, Urine Not Detected (NotDetected); Oxycodone Screen, Urine Not Detected (NotDetected); Tricyclic Antidepressant,Urine Not Detected (NotDetected)
[2021-12-28 04:23] VITALS: BP 128/78; PULSE 90; RESP 18; TEMP 98.4
== END 2021-12-28 04:22 | disposition home or self-care (01) ==
LOC: EC 22:10
DX: F32.A Depression, unspecified (principal); F41.9 Anxiety disorder, unspecified; F17.200 Nicotine dependence, unspecified, uncomplicated; F12.90 Cannabis use, unspecified, uncomplicated
CPT/HCPCS: 80306; 82075; 99284

== ENCOUNTER 2022-02-01 13:16 | Inpatient (IN) | payer MEDICAID, OTHER ==
--- NOTE | 2022-02-01 16:12 | ED ---
General Adult HPI - General Chief complaint: Psychiatric Symptoms Stated complaint: MENTAL STATUS Time Seen by Provider: 02/01/22 15:25 Source: patient Mode of arrival: ambulatory Limitations: no limitations - History of Present Illness Initial comments: Dictation was produced using [employer] dictation software. please excuse any grammatical, word or spelling errors. Chief Complaint: 46-year-old male presents emergency department for suicidal ideation. History of Present Illness: Patient is a 46-year-old male presents to the emergency department for suicidal ideation. Patient's 1 month emergency department for multiple visitations involving a call intoxication suicidal ideation. Patient states she's feeling suicidal. He does not have any specific complaint. States that he has been having alcohol today. Patient reports that he feels paranoid and is having visual and auditory hallucinations. Denies any medical complaints at the bedside. The ROS documented in this emergency department record has been reviewed and confirmed by me. Those systems with pertinent positive or negative responses have been documented in the HPI. All other systems are other negative and/or noncontributory. PHYSICAL EXAM: General Impression: Alert and oriented x3, not in acute distress HEENT: Normocephalic atraumatic, extra-ocular movements intact, pupils equal and reactive to light bilaterally, mucous membranes moist. Cardiovascular: Heart regular rate and rhythm Chest: Able to complete full sentences, no retractions, no tachypnea Abdomen: abdomen soft, non-tender, non-distended, no organomegaly Musculoskeletal: Pulses present and equal in all extremities, no peripheral edema Motor: no focal deficits noted Neurological: CN II-XII grossly intact, no focal motor or sensory deficits noted Skin: Intact with no visualized rashes Psych: Normal affect and mood ED course: 46-year-old male presents to the emergency department for suicidal ideation. vital signs upon arrival are within acceptable limits. Physical examination is benign. Patient resting comfortably at the bedside. Patient cleared for EPS evaluation. Patient was evaluated by EPS and told EPS nurse that he is not feeling homicidal. Recommend patient be admitted to inpatient psychiatry unit. Patient voluntarily signing in. - Related Data Home Medications Medication Instructions Recorded Confirmed Nicotine 14Mg/24Hr Patch [Habitrol] 1 patch TRANSDERM DAILY PRN 12/27/21 02/01/22 Previous Rx's Medication Instructions Recorded [place] Carbonate 300 mg PO BID 30 Days cap 10/13/21 QUEtiapine [SEROquel] 100 mg PO HS 30 Days tab 10/13/21 Allergies Allergy/AdvReac Type Severity Reaction Status Date / Time No Known Allergies Allergy Verified 12/27/21 23:13 Review of Systems ROS Statement: Those systems with pertinent positive or pertinent negative responses have been documented in the HPI. ROS Other: All systems not noted in ROS Statement are negative. Past Medical History Past Medical History: No Reported History Additional Past Medical History / Comment(s): deg disc disease History of Any Multi-Drug Resistant Organisms: None Reported Past Surgical History: Orthopedic Surgery Additional Past Surgical History / Comment(s): left knee arthroscopy Past Anesthesia/Blood Transfusion Reactions: No Reported Reaction Past Psychological History: No Psychological Hx Reported, Anxiety, Bipolar, Depression Smoking Status: Current every day smoker Past Alcohol Use History: Heavy Past Drug Use History: Marijuana, Methamphetamine General Exam Limitations: no limitations Course Vital Signs 02/01/22 13:42 Temperature 98.2 F Pulse Rate 110 H Respiratory 20 Rate Blood Pressure 127/74 O2 Sat by Pulse 99 Oximetry Medical Decision Making - Lab Data Lab Results 02/01/22 02/01/22 Range/Units 17:32 21:20 Urine Color Light Yellow Urine Appearance Clear (Clear) Urine pH 5.5 (5.0-8.0) Ur Specific [place] 1.004 (1.001-1.035) Urine Protein Negative (Negative) Urine Glucose (UA) Negative (Negative) Urine Ketones Negative (Negative) Urine Blood Negative (Negative) Urine Nitrite Negative (Negative) Urine Bilirubin Negative (Negative) Urine Urobilinogen <2.0 (<2.0) mg/dL Ur Leukocyte Esterase Negative (Negative) Urine Opiates Screen Not Detected (NotDetected) Ur Oxycodone Screen Not Detected (NotDetected) Urine Methadone Screen Not Detected (NotDetected) Ur Propoxyphene Screen Not Detected (NotDetected) Ur Barbiturates Screen Not Detected (NotDetected) U Tricyclic Antidepress Not Detected (NotDetected) Ur Phencyclidine Scrn Not Detected (NotDetected) Ur Amphetamines Screen Detected H (NotDetected) U Methamphetamines Scrn Detected H (NotDetected) U Benzodiazepines Scrn Not Detected (NotDetected) Urine Cocaine Screen Not Detected (NotDetected) U Marijuana (THC) Screen Detected H (NotDetected) Coronavirus (PCR) Not Detected (Not Detectd) Disposition Clinical Impression: Homicidal ideation, Suicidal ideation Disposition: ADMITTED IP TO THIS HOSP Condition: Fair Referrals: Mert Narayanan MD [Primary Care Provider] - 1-2 days
[2022-02-01 17:52] LABS: Appearance,Urine Clear (Clear); Bilirubin,Urine Negative (Negative); Blood,Urine Negative (Negative); Color,Urine Light Yellow; Glucose,Urine (UA) Negative (Negative); Ketones,Urine Negative (Negative); Leukocyte Esterase,Urine Negative (Negative); Nitrite,Urine Negative (Negative); PH, Urine 5.5 (5.0-8.0); Protein,Urine Negative (Negative); Specific Gravity,Urine 1.004 (1.001-1.035); Urobilinogen,Urine <2.0 mg/dL (<2.0)
[2022-02-01 18:03] LABS: Amphetamine Screen,Urine Detected (NotDetected); Barbiturate Screen,Urine Not Detected (NotDetected); Benzodiazepines Screen,Urine Not Detected (NotDetected); Cocaine Screen,Urine Not Detected (NotDetected); Methadone Screen, Urine Not Detected (NotDetected); Opiate Screen,Urine Not Detected (NotDetected); Oxycodone Screen, Urine Not Detected (NotDetected); Phencyclidine Screen,Urine Not Detected (NotDetected); Tricyclic Antidepressant,Urine Not Detected (NotDetected); Urn Cannabinoid Scrn Detected (NotDetected)
[2022-02-01] MEDS ORDERED: QUEtiapine 100 MG TAB PO PRN (23:27)
[2022-02-01] MEDS ORDERED: LITHIUM CARBONATE 300 MG CAP PO SCH (23:30)
[2022-02-01] MEDS ORDERED: MAG HYDROX/AL HYDROX/SIMETH 30 ML CUP PO PRN (23:31)
[2022-02-01] MEDS ORDERED: ACETAMINOPHEN TAB 325 MG TAB PO PRN (23:31)
[2022-02-01] MEDS ORDERED: MAGNESIUM HYDROXIDE 2,400 MG/10 ML CUP PO PRN (23:31)
[2022-02-01] MEDS ORDERED: haloperidoL 5 MG TAB PO PRN (23:34)
[2022-02-01] MEDS ORDERED: HALOPERIDOL LACTATE 5 MG/ML 1 ML VIAL IM PRN (23:34)
[2022-02-01] MEDS ORDERED: hydrOXYzine pamoate 25 MG CAP PO PRN (23:35)
[2022-02-02] MEDS: NICOTINE 14MG/24HR PATCH TRANSDERM SCH ×2 (03:30→09:11)
--- NOTE | 2022-02-02 04:59 | P.PN ---
Progress Note - Text Progress Note Date: 02/02/22 Notified of the admit by the [facility] RN. Also notified that the patient is currently sedated and not appropriate for evaluation.
[2022-02-02 06:58] LABS: Basophils # (A) 0.1 k/uL (0-0.2); Basophils % (A) 2 %; Eosinophils # (A) 0.3 k/uL (0-0.7); Eosinophils % (A) 4 %; HCT 50.1 % (39.0-53.0); HGB 15.8 gm/dL (13.0-17.5); Lymphocytes % (A) 32 %; MCH 32.7 pg (25.0-35.0); MCHC 31.5 g/dL (31.0-37.0); MCV 103.5 fL (80.0-100.0); Macrocytosis Slight; Mean Platelet Volume 7.3; Monocytes # (A) 0.5 k/uL (0-1.0); Monocytes % (A) 8 %; Neutrophils # (A) 3.3 k/uL (1.3-7.7); Neutrophils % (A) 54 %; Platelet Count 278 k/uL (150-450); RBC 4.84 m/uL (4.30-5.90); RDW 11.8 % (11.5-15.5); WBC 6.2 k/uL (3.8-10.6)
[2022-02-02 07:11] LABS: Lithium <0.2 mmol/L
[2022-02-02 07:25] LABS: ALT 23 U/L (4-49); AST 36 U/L (17-59); African American GFR (CKD) 75 (>60 ml/min/1.73 sqM); Albumin 3.7 g/dL (3.5-5.0); Alkaline Phosphatase 55 U/L (38-126); Anion Gap 2 mmol/L; Blood Urea Nitrogen 14 mg/dL (9-20); Calcium 9.2 mg/dL (8.4-10.2); Carbon Dioxide 30 mmol/L (22-30); Chloride 108 mmol/L (98-107); Glucose 103 mg/dL (74-99); Non-African American GFR(CKD) 65 (>60 ml/min/1.73 sqM); Potassium 5.1 mmol/L (3.5-5.1); Sodium 140 mmol/L (137-145); Total Bilirubin 0.4 mg/dL (0.2-1.3); Total Protein 6.3 g/dL (6.3-8.2)
[2022-02-02] MEDS ORDERED: hydrOXYzine HCL 50 MG/ML 1 ML VIAL IM PRN (09:00)
[2022-02-02 11:50] LABS: Chol/HDL Ratio 3.43 Ratio; VLDL Calculation 17.96 mg/dL (5.00-40.00)
--- NOTE | 2022-02-02 14:10 | P.HP ---
Psychiatric H&P - . H&P Date: 02/02/22 History & Physical: Allergies Allergy/AdvReac Type Severity Reaction Status Date / Time No Known Allergies Allergy Verified 02/02/22 02:13 Vital Signs Temp 97.5 F L 02/02/22 00:36 Pulse 72 02/02/22 00:36 Resp 16 02/02/22 00:36 BP 127/72 02/02/22 00:36 Pulse Ox 96 02/02/22 00:36 Intake & Output 02/01/22 02/02/22 02/02/22 18:59 06:59 18:59 Weight 72.575 kg 67.585 kg Laboratory Last Values WBC 6.2 k/uL (3.8-10.6) 02/02/22 06:26 RBC 4.84 m/uL (4.30-5.90) 02/02/22 06:26 Hgb 15.8 gm/dL (13.0-17.5) 02/02/22 06:26 Hct 50.1 % (39.0-53.0) 02/02/22 06:26 MCV 103.5 fL (80.0-100.0) H 02/02/22 06:26 MCH 32.7 pg (25.0-35.0) 02/02/22 06:26 MCHC 31.5 g/dL (31.0-37.0) 02/02/22 06:26 RDW 11.8 % (11.5-15.5) 02/02/22 06:26 Plt Count 278 k/uL (150-450) 02/02/22 06:26 MPV 7.3 02/02/22 06:26 Neutrophils % 54 % 02/02/22 06:26 Lymphocytes % 32 % 02/02/22 06:26 Monocytes % 8 % 02/02/22 06:26 Eosinophils % 4 % 02/02/22 06:26 Basophils % 2 % 02/02/22 06:26 Neutrophils # 3.3 k/uL (1.3-7.7) 02/02/22 06:26 Lymphocytes # 2.0 k/uL (1.0-4.8) 02/02/22 06:26 Monocytes # 0.5 k/uL (0-1.0) 02/02/22 06:26 Eosinophils # 0.3 k/uL (0-0.7) 02/02/22 06:26 Basophils # 0.1 k/uL (0-0.2) 02/02/22 06:26 Macrocytosis Slight 02/02/22 06:26 Sodium 140 mmol/L (137-145) 02/02/22 06:26 Potassium 5.1 mmol/L (3.5-5.1) 02/02/22 06:26 Chloride 108 mmol/L (98-107) H 02/02/22 06:26 Carbon Dioxide 30 mmol/L (22-30) 02/02/22 06:26 Anion Gap 2 mmol/L 02/02/22 06:26 BUN 14 mg/dL (9-20) 02/02/22 06:26 Creatinine 1.31 mg/dL (0.66-1.25) H 02/02/22 06:26 Est GFR (CKD-EPI)AfAm 75 (>60 ml/min/1.73 sqM) 02/02/22 06:26 Est GFR (CKD-EPI)NonAf 65 (>60 ml/min/1.73 sqM) 02/02/22 06:26 Glucose 103 mg/dL (74-99) H 02/02/22 06:[address] Glu mg/dL 121 02/02/22 06:26 Hemoglobin A1c 5.8 % (0.0-6.0) 02/02/22 06:26 Calcium 9.2 mg/dL (8.4-10.2) 02/02/22 06:26 Total Bilirubin 0.4 mg/dL (0.2-1.3) 02/02/22 06:26 AST 36 U/L (17-59) 02/02/22 06:26 ALT 23 U/L (4-49) 02/02/22 06:26 Alkaline Phosphatase 55 U/L (38-126) 02/02/22 06:26 Total Protein 6.3 g/dL (6.3-8.2) 02/02/22 06:26 Albumin 3.7 g/dL (3.5-5.0) 02/02/22 06:26 Triglycerides 89.80 mg/dL (0.00-149.00) 02/02/22 06:26 Cholesterol 185.00 mg/dL (0.00-200.00) 02/02/22 06: LDL Cholesterol, Calc 113.0 mg/dL (0.0-131.0) 02/02/22 06: VLDL Cholesterol, Calc 17.96 mg/dL (5.00-40.00) 02/02/22 06: HDL Cholesterol 54.00 mg/dL (40.00-60.00) 02/02/22: Cholesterol/HDL Ratio 3.43 Ratio 02/02/22: TSH 1.300 mIU/L (0.465-4.680) 02/02/22 06:26 Urine Color Light Yellow 02/01/22 17:32 Urine Appearance Clear (Clear) 02/01/22 17:32 Urine pH 5.5 (5.0-8.0) 02/01/22 17:32 Ur Specific [place] 1.004 (1.001-1.035) 02/01/22 17:32 Urine Protein Negative (Negative) 02/01/22 17:32 Urine Glucose (UA) Negative (Negative) 02/01/22 17:32 Urine Ketones Negative (Negative) 02/01/22 17:32 Urine Blood Negative (Negative) 02/01/22 17:32 Urine Nitrite Negative (Negative) 02/01/22 17:32 Urine Bilirubin Negative (Negative) 02/01/22 17:32 Urine Urobilinogen <2.0 mg/dL (<2.0) 02/01/22 17:32 Ur Leukocyte Esterase Negative (Negative) 02/01/22 17:32 Urine Opiates Screen Not Detected (NotDetected) 02/01/22 17:32 Ur Oxycodone Screen Not Detected (NotDetected) 02/01/22 17:32 Urine Methadone Screen Not Detected (NotDetected) 02/01/22 17:32 Ur Propoxyphene Screen Not Detected (NotDetected) 02/01/22 17:32 Ur Barbiturates Screen Not Detected (NotDetected) 02/01/22 17:32 U Tricyclic Antidepress Not Detected (NotDetected) 02/01/22 17:32 Ur Phencyclidine Scrn Not Detected (NotDetected) 02/01/22 17:32 Ur Amphetamines Screen Detected (NotDetected) H 02/01/22 17:32 U Methamphetamines Scrn Detected (NotDetected) H 02/01/22 17:32 U Benzodiazepines Scrn Not Detected (NotDetected) 02/01/22 17:32 [place] <0.2 mmol/L 02/02/22 06:26 Urine Cocaine Screen Not Detected (NotDetected) 02/01/22 17:32 U Marijuana (THC) Screen Detected (NotDetected) H 02/01/22 17:32 Coronavirus (PCR) Not Detected (Not Detectd) 02/01/22 21:20 02/02/22 13:14 IDENTIFYING DATA: Patient is a 46-year-old -[place] male, who is currently and has 1 kid and was living in a house, unemployed HPI: Patient presented to the hospital yesterday with a chief complaint of depression and suicidal thoughts. He apparently was reporting that he has been drinking alcohol and was feeling paranoid. Patient was also reporting auditory and visual hallucinations. Patient has a history of multiple psychiatric admissions in the past. His history of bipolar disorder and polysubstance abuse. Patient was previously discharged in October 2021 on lithium and Seroquel. Patient's her lithium level was below 0.2 urine analysis was negative. Patient's UDS was positive for amphetamines, methamphetamine, THC. Patient states that he was hearing voices at home and claims that his mood has been "up and down". He states that he has not been consistently taking his m edications. He states that he does get good benefit from lithium however claims that Seroquel is too sedating for him. He claims that he is been having several arguments and having negative thoughts about his . He claims that he is hearing voices telling him to harm his , to stab her. He states that this has been progressively getting worse for the past week or so. He claims that his aunt brought him into the hospital for treatment. He claims that "my is evil and unforgiving". He states that they have had multiple relationship issues and states that he now wants to file for divorce. He was fairly vague about what their issues are. He states that he does not trust her. He states that his sleep has been poor. He also claims that he's been using methamphetamine regularly every day and also using marijuana and cigarettes. Patient is admitting that he has suicidal thoughts as well however has no intent or plan. At this time patient denies any visual hallucinations. Patient denies any flight of ideas racing thoughts and increased in goal directed behavior. Patient admits to using recreational drugs as noted above. He currently uses cigarettes as well. PAST PSYCHIATRIC HISTORY: Patient states that his history of bipolar disorder and polysubstance abuse. He was previously on Lamictal and Seroquel. He apparently has been off of his medications for several months. He claims that he has been psychiatrically hospitalized 3 times in the past in [place] and his last hospitalization was in October 2021. Patient denies any psychiatric outpatient follow-up however did state that he went to [facility] to start following up with them. He claims that he did have 1 suicide attempt overdosing in 2010. PMH:deg disc disease ALLERGIES: as per EMR CHEMICAL DEPENDENCY HISTORY: as per HPI FAMILY PSYCHIATRIC/SUBSTANCE USE HISTORY: Is unsure SOCIAL HISTORY: Patient was born and raised in [facility]. He states that he spent some time in [place] and also in [place] and is now back in [place]. He claims that he completed his GED. He states that he went to half-way and long-term for different charges including larceny and armed robbery. He states that he is not working any longer and unemployed. He is currently and has 1 adult who is estranged to him. MENTAL STATUS EXAM: General Appearance: Patient appears to be well built, clean cut, stated age is alert, directable, and attempts to cooperate. Patient appears to have fair hygiene and grooming. Behavior: Patient is seated without any agitated behavior. Speech: Patient's speech is fluent and nonpressured. Mood/Affect: Patient reports their mood is depressed and anxious, affect is incongruent Suicidality/Homicidality: Patient admits to homicidal ideations towards his . Admits to suicidal ideations however no current intent or plan. Perceptions: Patient denies any visual hallucinations admits to auditory hallucinations of voices telling him to harm his . Though content/process: She is fairly goal directed. Logical. Focus on his symptoms. Memory and concentration: AOX3, grossly intact for the purposes of this session. Can spell "WORLD" backwards Judgment and insight: poor STRENGTHS/WEAKNESSES: strength is that patient is resilient. Weakness is that patient has poor judgment and chronic history of substance abuse and mental illness. INTELLECT: average IMPRESSIONS: Bipolar disorder, with psychotic features Methamphetamine abuse Cannabis use disorder Nicotine dependence PLAN: -Patient is admitted under voluntary status to [facility] for stabilization of psychiatric symptoms and safety. Patient has signed adult voluntary form and is placed in patient's chart. -Medications : Will start patient on Abilify 5 mg daily for mood stabilization/psychosis with plan to titrate up over the weekend if necessary. Start trazodone 50 mg daily at bedtime for mood/insomnia. -Vistaril and Haldol PRN for agitation/aggression -Patient was counselled on substance abuse and desired to cut back on use -Patient was informed of the risks, benefits and side effects of the medication and patient verbally consented to taking the medications. Patient signed med consent form and was placed in chart. -Internal Medicine consult to perform medical evaluation and physical. -NRT - nicotine patch -SW on board for discharge planning. Encourage patient to participate in groups to work on coping skills. Patient is currently interested in inpatient rehab at [facility].
[2022-02-02] MEDS: ARIPiprazole 5 MG TAB PO SCH (15:22)
[2022-02-02] MEDS: traZODone HCL 50 MG TAB PO SCH (21:19)
[2022-02-03] MEDS: ARIPiprazole 5 MG TAB PO SCH (08:22)
[2022-02-03] MEDS: NICOTINE 14MG/24HR PATCH TRANSDERM SCH (08:23)
--- NOTE | 2022-02-03 12:31 | P.PN ---
Subjective Progress Note Date: 02/03/22 Principal diagnosis: Adjustment disorder with mixed emotional features Bipolar disorder unspecified Methamphetamine use disorder unspecified Cannabis use disorder unspecified Nicotine dependence Subjective data: I'm here because I have a lot of family issues Everyone is getting on my nerves especially my He has I have been using cannabis and methamphetamine That does make you feel more angry They just don't leave me alone Denies any suicidal or homicidal ideations Objective data: Patient is alert and oriented to place and person Speech is clear and coherent and relevant Thought processes are goal-directed sequential however continues to rationalize and intellectualize Patient remains very projective Patient continues to minimize his substance use problems Formal and operational judgment are concrete and self-centered Insight and his problem is impaired Plan: Patient continues to be in need of current hospitalization for stabilization and safety Patient will also participate in on the [facility] activities and milieu treatment Patient also is a good candidate for referral to substance use program after stabilization Patient is currently on Abilify 5 mg daily and trazodone 50 mg at bedtime and has not reported any side effects [facility] 02/03/2022 Objective - Vital Signs Vital signs: Vital Signs Temp 97.7 F 02/03/22 06:58 Pulse 80 02/03/22 06:58 Resp 14 02/03/22 06:58 BP 126/57 02/03/22 06:58 Pulse Ox 96 02/02/22 00:36 - Labs CBC & Chem 7: 02/02/22 06:26 02/02/22 06:26
[2022-02-03] MEDS: traZODone HCL 50 MG TAB PO SCH (21:52)
[2022-02-04] MEDS: NICOTINE 14MG/24HR PATCH TRANSDERM SCH (07:51)
[2022-02-04] MEDS: ARIPiprazole 5 MG TAB PO SCH (07:51)
--- NOTE | 2022-02-04 10:36 | P.PN ---
Subjective Progress Note Date: 02/04/22 Principal diagnosis: Adjustment disorder with mixed emotional features Bipolar disorder unspecified Methamphetamine use disorder unspecified Cannabis use disorder unspecified Nicotine dependence Subjective data: I did not sleep too well I thought I'd might be okay with the 50 mg of trazodone looks like I need at least 150 I have started to think more clearly No I do not want to hurt my but I had such strong thoughts at that time Yes the drugs did not seem to help either Denies any suicidal or homicidal ideations Objective data: Patient is alert and oriented to place and person Speech is clear and coherent and relevant Thought processes are goal-directed sequential however continues to rationalize and intellectualize Patient remains very projective Patient continues to minimize his substance use problems Formal and operational judgment are concrete and self-centered Insight and his problem is impaired Plan: Patient continues to be in need of current hospitalization for stabilization and safety Patient will also participate in on the [facility] activities and milieu treatment Patient also is a good candidate for referral to substance use program after st abilization Patient is currently on Abilify 5 mg daily and increase trazodone to 150 mg at bedtime and has not reported [facility] side [facility] Objective - Vital Signs Vital signs: Vital Signs Temp 97.7 F 02/03/22 06:58 Pulse 80 02/03/22 06:58 Resp 14 02/03/22 06:58 BP 126/57 02/03/22 06:58 Pulse Ox 96 02/02/22 00:36 Intake & Output 02/03/22 02/04/22 02/04/22 18:59 06:59 18:59 Weight 67.5 kg - Labs CBC & Chem 7: 02/02/22 06:26 02/02/22 06:26
[2022-02-04] MEDS ORDERED: traZODone HCL 50 MG TAB PO SCH (21:00)
[2022-02-05 06:47] VITALS: RESP 16
[2022-02-05] MEDS: NICOTINE 14MG/24HR PATCH TRANSDERM SCH (07:50)
[2022-02-05] MEDS: ARIPiprazole 5 MG TAB PO SCH ×2 (07:50→07:51)
[2022-02-05] MEDS ORDERED: traZODone HCL 100 MG TAB PO PRN (10:33)
[2022-02-05] MEDS ORDERED: MELATONIN 3 MG TABLET PO PRN (10:34)
--- NOTE | 2022-02-05 12:14 | P.PN ---
Progress Note - Text Progress Note Date: 02/05/22 Interval History: Patient was seen wandering the hallways and was directable and agreeable to chandrika delacruz with instructional writer in the office. Patient appears to have improvement in hygiene and grooming today. He states that he is doing better and feels a lot more "stable" as he is taking his Abilify. He states that he believes that he needs medications. She is showing improvement with regards to his insight however continues to minimize his drug use. He states that he feels he cannot go to [facility] at this time as he has "too much stuff in my life going on at home". He states that he spoke with his " we worked things out" and states that he is willing to go back there. He claims that he is not having homicidal thoughts towards her any longer. He states that he is not having any depression or anxiety today. He did state that he had trouble falling asleep last night and awoke several times. He states that he wants to try sleeping without the trazodone. At this time patient denies any suicidal or homical ideations, intent or plan. Patient denies any auditory, visual hallucinations and denies any paranoia or delusions. Patient denies any side effects from the medications and has been compliant with meds. Mental Status Exam: General Appearance: Patient appears to be stated age is alert, directable, and cooperative. Behavior: Patient is calmly seated without any agitated behavior. Speech: Patient's speech is fluent and nonpressured. Mood/Affect: Mood is improving mildly, affect is congruent and constricted. Suicidality/Homicidality: Patient denies having any suicidal or homicidal ideation intent or plan. Perceptions: Patient denies any visual hallucinations and denies any auditory hallucinations Though content/process: There is no evidence of any delusional thought content and thought process is linear and goal-directed. Memory and concentration: AOX3, grossly intact for the purposes of this session Judgment and insight: Poor however is improving mildly. Assessment Bipolar disorder, with psychotic features Methamphetamine abuse Cannabis use disorder Nicotine dependence Plan: -Patient continues to meet criteria for inpatient psychiatric admission for symptom stabilization and safety. Patient has signed adult voluntary form and medication consent and was placed in patient's chart. -Medications: Continue with Abilify by mouth 5 mg daily for mood stabilization/psychosis. Increase trazodone to 200 mg daily at bedtime when necessary. Added melatonin daily at bedtime when necessary. -When necessary Vistaril and Haldol for agitation/aggression. -NRT - nicotine patch -SW on board for discharge planning. Encouraged the patient to participate in milieu. Patient claims that he does not want to go to [facility] any longer for inpatient rehab. He states that he would rather do outpatient substance use programs through [facility]. outreach worker already did a duty to warn for his threats towards his . WIll ensure that patient is allowed back at home and no guns or weapons are there. Likelty discharge tomorrow.
[2022-02-06 07:08] VITALS: BP 135/73; PULSE 93; TEMP 99.1
[2022-02-06] MEDS: NICOTINE 14MG/24HR PATCH TRANSDERM SCH (08:44)
[2022-02-06] MEDS ORDERED: ARIPiprazole 5 MG TAB PO SCH (09:00)
--- NOTE | 2022-02-06 09:29 | P.DS ---
Providers Date of admission: 02/01/22 22:53 Expected date of discharge: 02/06/22 Attending physician: Mike Shaikh MD Consults: 02/01/22 23:31 Consult Physician Routine Consulting Provider: David Wall Consult Reason/Comments: history and physical/medical management Do you want consulting provider notified?: Yes Primary care physician: Joe Pedraza - Discharge Diagnosis(es) (1) Bipolar disorder with psychotic features Current Visit: Yes Status: Acute Priority: High (2) Methamphetamine abuse Current Visit: Yes Status: Acute Priority: High (3) Cannabis use disorder, mild, abuse Current Visit: Yes Status: Acute Priority: Medium (4) Nicotine dependence Current Visit: Yes Status: Acute Priority: Low Hospital Course: Admission HPI: Admission note was completed by check writer "Patient is a 46-year-old - [place] male, who is currently and has 1 kid and was living in a house, unemployed. Patient presented to the hospital yesterday with a chief complaint of depression and suicidal thoughts. He apparently was reporting that he has been drinking alcohol and was feeling paranoid. Patient was also reporting auditory and visual hallucinations. Patient has a history of multiple psychiatric admissions in the past. His history of bipolar disorder and polysubstance abuse. Patient was previously discharged in October 2021 on lithium and Seroquel. Patient's her lithium level was below 0.2 urine analysis was negative. Patient's UDS was positive for amphetamines, methamphetamine, THC. Patient states that he was hearing voices at home and claims that his mood has been "up and down". He states that he has not been consistently taking his medications. He states that he does get good benefit from lithium however claims that Seroquel is too sedating for him. He claims that he is been having several arguments and having negative thoughts about his . He claims that he is hearing voices telling him to harm his , to stab her. He states that this has been progressively getting worse for the past week or so. He claims that his aunt brought him into the hospital for treatment. He claims that "my is evil and unforgiving". He states that they have had multiple relationship issues and states that he now wants to file for divorce. He was fairly vague about what their issues are. He states that he does not trust her. He states that his sleep has been poor. He also claims that he's been using methamphetamine regularly every day and also using marijuana and cigarettes. Patient is admitting that he has suicidal thoughts as well however has no intent or plan. At this time patient denies any visual hallucinations. Patient denies any flight of ideas racing thoughts and increased in goal directed behavior. Patient admits to using recreational drugs as noted above. He currently uses cigarettes as well." Hospital course: Upon admission to the unit patient was directable and agreeable to commence treatment and signed adult voluntary form. Patient got along well with other patients on the unit and followed unit protocol. Patient was compliant with the medications and denied any side effects throughout hospital course. Patient was started on Abilify 5 mg daily for mood stabilization/psychosis. Patient was also started on trazodone and melatonin when necessary at night time however patient preferred the melatonin instead. Patient spoke of his stressors and engaged in therapy both group and individual. Patient was also seen by medical team for history and physical exam. Throughout the course of the hospitalizat ion patient gradually improved with regards to mood, anxiety, psychosis, sleep and returned back to their baseline level of functioning. On the day of discharge patient denied any suicidal or homicidal ideations intent or plan denied any auditory or visual hallucinations. Patient adamantly denied wanting to harm his and claims that there are no guns or weapons in the house. toll test desk worker reached out to patient's for the duty to warn as he made threats towards her. Patient endorsed wanting to live for his health and family. The patient denied any access to guns or weapons. Patient denied any paranoia and did not endorse any delusions. Patient does have a significant history of substance abuse and was counseled on abstaining from all substances including alcohol and marijuana. Patient was offered however declined inpatient substance-abuse rehab. Patient elected to do outpatient substance use treatment program through [facility]. Patient was also counseled on the medications and need for regular compliance and was encouraged to follow-up with their outpatient appointment for mental health and also for primary care. Prior to discharge a family meeting will be arranged by rn social services to answer any questions and ensure safety upon discharge. Mental status exam: General Appearance: Patient appears to be stated age is alert, pleasant, and cooperative. Patient is in no acute distress and has improved hygiene and grooming Behavior: Patient is calmly seated without any agitated behavior. Speech: Patient's speech is fluent and nonpressured. Mood/Affect: Patient reports their mood is "good", affect is congruent and euthymic. Suicidality/Homicidality: Patient denies having any suicidal or homicidal ideation intent or plan. Perceptions: Patient denies any auditory or visual hallucinations. Though content/process: There is no evidence of any delusional thought content and thought process is linear and goal-directed. more future oriented Memory and concentration: AOX3, grossly intact for the purposes of this session. Can spell "WORLD" backwards correctly. Judgment and insight: chronically poor, however has improved with guarded prognosis Impression: Bipolar disorder with psychotic features Methamphetamine abuse Cannabis use disorder Nicotine dependence Plan: -Continue with discharge today as patient has improved and stabilized psychiatrically and is not currently an imminent threat to himself and/or others. Patient will remain at chronically elevated risk for harm to self and/or others due to his impulsivity and polysubstance abuse. -Continue medications: Abilify 5 mg daily by mouth for mood stabilization/psychosis. Melatonin 6 mg daily at bedtime when necessary for sleep. -Patient was counseled on the need for medication compliance and appropriate follow-up at mental health and also primary care for medical issues. Patient verbalized understanding and agreed. -Social work to arrange for and conduct family meeting to ensure safety upon d ischarge and answer any questions/concerns. The duty to warn has already been completed by rn social services to . Social work also to arrange for patients follow up appointments with [facility] for psychiatric care along with follow up with primary care provider. -Patient counseled on abstaining from recreational drugs and marijuana and alcohol. Was informed/educated on the adverse effects on their physical and mental health. Patient verbally agreed and understood. Patient was offered substance abuse treatment however declined at this time. -Patient was instructed to return to the hospital or seek immediate medical care if their psychiatric or medical symptoms do worsen or reoccur. Allergies Allergy/AdvReac Type Severity Reaction Status Date / Time No Known Allergies Allergy Verified 02/02/22 02:13 Laboratory Results WBC 6.2 k/uL (3.8-10.6) 02/02/22 06:26 RBC 4.84 m/uL (4.30-5.90) 02/02/22 06:26 Hgb 15.8 gm/dL (13.0-17.5) 02/02/22 06:26 Hct 50.1 % (39.0-53.0) 02/02/22 06:26 MCV 103.5 fL (80.0-100.0) H 02/02/22 06:26 MCH 32.7 pg (25.0-35.0) 02/02/22 06:26 MCHC 31.5 g/dL (31.0-37.0) 02/02/22 06:26 RDW 11.8 % (11.5-15.5) 02/02/22 06:26 Plt Count 278 k/uL (150-450) 02/02/22 06:26 MPV 7.3 02/02/22 06:26 Neutrophils % 54 % 02/02/22 06:26 Lymphocytes % 32 % 02/02/22 06:26 Monocytes % 8 % 02/02/22 06:26 Eosinophils % 4 % 02/02/22 06:26 Basophils % 2 % 02/02/22 06:26 Neutrophils # 3.3 k/uL (1.3-7.7) 02/02/22 06:26 Lymphocytes # 2.0 k/uL (1.0-4.8) 02/02/22 06:26 Monocytes # 0.5 k/uL (0-1.0) 02/02/22 06:26 Eosinophils # 0.3 k/uL (0-0.7) 02/02/22 06:26 Basophils # 0.1 k/uL (0-0.2) 02/02/22 06:26 Macrocytosis Slight 02/02/22 06:26 Sodium 140 mmol/L (137-145) 02/02/22 06:26 Potassium 5.1 mmol/L (3.5-5.1) 02/02/22 06:26 Chloride 108 mmol/L (98-107) H 02/02/22 06:26 Carbon Dioxide 30 mmol/L (22-30) 02/02/22 06:26 Anion Gap 2 mmol/L 02/02/22 06:26 BUN 14 mg/dL (9-20) 02/02/22 06:26 Creatinine 1.31 mg/dL (0.66-1.25) H 02/02/22 06:26 Est GFR (CKD-EPI)AfAm 75 (>60 ml/min/1.73 sqM) 02/02/22 06:26 Est GFR (CKD-EPI)NonAf 65 (>60 ml/min/1.73 sqM) 02/02/22 06:26 Glucose 103 mg/dL (74-99) H 02/02/22 06:[address] Glu mg/dL 121 02/02/22 06:26 Hemoglobin A1c 5.8 % (0.0-6.0) 02/02/22 06:26 Calcium 9.2 mg/dL (8.4-10.2) 02/02/22 06:26 Total Bilirubin 0.4 mg/dL (0.2-1.3) 02/02/22 06:26 AST 36 U/L (17-59) 02/02/22 06:26 ALT 23 U/L (4-49) 02/02/22 06:26 Alkaline Phosphatase 55 U/L (38-126) 02/02/22 06:26 Total Protein 6.3 g/dL (6.3-8.2) 02/02/22 06:26 Albumin 3.7 g/dL (3.5-5.0) 02/02/22 06:26 Triglycerides 89.80 mg/dL (0.00-149.00) 02/02/22 06:26 Cholesterol 185.00 mg/dL (0.00-200.00) 02/02/22 06:26 LDL Cholesterol, Calc 113.0 mg/dL (0.0-131.0) 02/02/22 06:26 VLDL Cholesterol, Calc 17.96 mg/dL (5.00-40.00) 02/02/22 06:26 HDL Cholesterol 54.00 mg/dL (40.00-60.00) 02/02/22 06:26 Cholesterol/HDL Ratio 3.43 Ratio 02/02/22 06:26 TSH 1.300 mIU/L (0.465-4.680) 02/02/22 06:26 Urine Color Light Yellow 02/01/22 17:32 Urine Appearance Clear (Clear) 02/01/22 17:32 Urine pH 5.5 (5.0-8.0) 02/01/22 17:32 Ur Specific [place] 1.004 (1.001-1.035) 02/01/22 17:32 Urine Protein Negative (Negative) 02/01/22 17:32 Urine Glucose (UA) Negative (Negative) 02/01/22 17:32 Urine Ketones Negative (Negative) 02/01/22 17:32 Urine Blood Negative (Negative) 02/01/22 17:32 Urine Nitrite Negative (Negative) 02/01/22 17:32 Urine Bilirubin Negative (Negative) 02/01/22 17:32 Urine Urobilinogen <2.0 mg/dL (<2.0) 02/01/22 17:32 Ur Leukocyte Esterase Negative (Negative) 02/01/22 17:32 Urine Opiates Screen Not Detected (NotDetected) 02/01/22 17:32 Ur Oxycodone Screen Not Detected (NotDetected) 02/01/22 17:32 Urine Methadone Screen Not Detected (NotDetected) 02/01/22 17:32 Ur Propoxyphene Screen Not Detected (NotDetected) 02/01/22 17:32 Ur Barbiturates Screen Not Detected (NotDetected) 02/01/22 17:32 U Tricyclic Antidepress Not Detected (NotDetected) 02/01/22 17:32 Ur Phencyclidine Scrn Not Detected (NotDetected) 02/01/22 17:32 Ur Amphetamines Screen Detected (NotDetected) H 02/01/22 17:32 U Methamphetamines Scrn Detected (NotDetected) H 02/01/22 17:32 U Benzodiazepines Scrn Not Detected (NotDetected) 02/01/22 17:32 [place] <0.2 mmol/L 02/02/22 06:26 Urine Cocaine Screen Not Detected (NotDetected) 02/01/22 17:32 U Marijuana (THC) Screen Detected (NotDetected) H 02/01/22 17:32 Coronavirus (PCR) Not Detected (Not Detectd) 02/01/22 21:20 Vital Signs Temp 99.1 F 02/06/22 07:07 Pulse 93 02/06/22 07:07 Resp 16 02/05/22 06:46 BP 135/73 02/06/22 07:07 Pulse Ox 98 02/06/22 07:07 Intake & Output 02/05/22 02/06/22 02/06/22 18:59 06:59 18:59 Weight 67.5 kg Patient Condition at Discharge: Stable Plan - Discharge Summary Discharge Rx Participant: Yes New Discharge Prescriptions: New ARIPiprazole [Abilify] 5 mg PO DAILY 30 Days tab Nicotine 14Mg/24Hr Patch [Habitrol] 1 patch TRANSDERM DAILY 14 Days patch Melatonin 6 mg PO HS PRN 30 Days tablet PRN Reason: Insomnia Discontinued [place] Carbonate 300 mg PO BID 30 Days cap QUEtiapine [SEROquel] 100 mg PO HS 30 Days tab Nicotine 14Mg/24Hr Patch [Habitrol] 1 patch TRANSDERM DAILY PRN PRN Reason: Nicotine Cravings Discharge Medication List ARIPiprazole [Abilify] 5 mg PO DAILY 30 Days tab 02/06/22 [Rx] Melatonin 6 mg PO HS PRN 30 Days tablet 02/06/22 [Rx] Nicotine 14Mg/24Hr Patch [Habitrol] 1 patch TRANSDERM DAILY 14 Days patch 02/06/22 [Rx] Follow up Appointment(s)/Referral(s): Mert Narayanan MD [REFERRING] - 1-2 days Activity/Diet/Wound Care/Special Instructions: Activity and diet as tolerated. Avoid the use of street drugs and alcohol. Take all medications as prescribed. When you are in need of refills on your medications please contact your medical provider and/or outpatient psychiatrist to have this done. Please go to scheduled outpatient appointment for aftercare treatment. If symptoms return or become worse, call the crisis line at and/or go to the nearest emergency room for evaluation Discharge Disposition: HOME SELF-CARE
== END 2022-02-06 11:04 | disposition home or self-care (01) | DRG 885 ==
LOC: EC 13:16 → 3MHU 22:53
PROVIDERS: ADMIT Psychiatry & Neurology Psychiatry; ATTEND Psychiatry & Neurology Psychiatry
DX: F31.9 Bipolar disorder, unspecified (principal); R45.851 Suicidal ideations; F15.10 Other stimulant abuse, uncomplicated; F17.210 Nicotine dependence, cigarettes, uncomplicated; F43.23 Adjustment disorder with mixed anxiety and depressed mood; R45.850 Homicidal ideations; Z63.8 Other specified problems related to primary support group; Z79.899 Other long term (current) drug therapy; F12.90 Cannabis use, unspecified, uncomplicated
CPT/HCPCS: 80053; 80061; 80178; 80306; 81003; 82075; 83036; 84443; 85025; 87635; 99285

== ENCOUNTER 2022-09-28 10:10 | Inpatient (IN) | payer MEDICAID, OTHER ==
[2022-09-28 10:42] LABS: Appearance,Urine Clear (Clear); Bilirubin,Urine Negative (Negative); Blood,Urine Trace (Negative); Color,Urine Yellow; Glucose,Urine (UA) Negative (Negative); Ketones,Urine Negative (Negative); Leukocyte Esterase,Urine Negative (Negative); Nitrite,Urine Negative (Negative); PH, Urine 6.5 (5.0-8.0); Protein,Urine Negative (Negative); RBC,Urine 3 /hpf (0-5); Specific Gravity,Urine 1.014 (1.001-1.035); Urobilinogen,Urine <2.0 mg/dL (<2.0); WBC,Urine <1 /hpf (0-5)
[2022-09-28 10:53] LABS: Amphetamine Screen,Urine Not Detected (NotDetected); Barbiturate Screen,Urine Not Detected (NotDetected); Benzodiazepines Screen,Urine Not Detected (NotDetected); Cocaine Screen,Urine Not Detected (NotDetected); Methadone Screen, Urine Not Detected (NotDetected); Opiate Screen,Urine Not Detected (NotDetected); Oxycodone Screen, Urine Not Detected (NotDetected); Phencyclidine Screen,Urine Not Detected (NotDetected); Tricyclic Antidepressant,Urine Not Detected (NotDetected); Urn Cannabinoid Scrn Detected (NotDetected)
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
[2022-09-28] MEDS ORDERED: MAG HYDROX/AL HYDROX/SIMETH 30 ML CUP PO PRN (15:23)
[2022-09-28] MEDS ORDERED: HALOPERIDOL LACTATE 5 MG/ML 1 ML VIAL IM PRN (15:23)
[2022-09-28] MEDS ORDERED: MAGNESIUM HYDROXIDE 2,400 MG/10 ML CUP PO PRN (15:23)
[2022-09-28] MEDS ORDERED: ACETAMINOPHEN TAB 325 MG TAB PO PRN (15:23)
[2022-09-28] MEDS ORDERED: LORazepam 1 MG TAB PO PRN (15:23)
[2022-09-28] MEDS ORDERED: LORazepam 2 MG/ML INJ IM PRN (15:27)
[2022-09-28] MEDS ORDERED: haloperidoL 5 MG TAB PO PRN (15:28)
[2022-09-28 16:22] VITALS: RESP 16
[2022-09-28] MEDS: ARIPiprazole 15 MG TAB PO SCH (17:31)
[2022-09-28] MEDS: OLANZapine 5 MG TAB PO SCH ×2 (17:32→21:18)
[2022-09-28] MEDS ORDERED: OLANZapine 5 MG TAB PO ONE (20:00)
[2022-09-28] MEDS: MIRTAZAPINE 15 MG TAB PO SCH (21:17)
[2022-09-28] MEDS: traZODone HCL 100 MG TAB PO SCH (21:18)
--- NOTE | 2022-09-29 01:33 | HP ---
HISTORY AND PHYSICAL IDENTIFYING DATA: The patient is a 47-year-old male. He resides with his . He presented to the ED for evaluation after having left [facility] in [place]. CHIEF COMPLAINT: The patient was depressed with suicidal thinking. HISTORY OF PRESENTING ILLNESS: The patient has had long-term psychiatric problems. He has been diagnosed with bipolar disorder with psychotic features and substance dependence. He has had 2 recent psychiatric admissions to this facility in the last year including 10/10/2021 and 02/02/2022. He presented essentially for similar circumstances as his current situation. In January, he was depressed. He had suicidal thinking. He had been drinking. He was feeling paranoid. He had auditory and visual hallucinations. He had been on lithium 300 mg daily and Seroquel 100 mg daily at discharge from his October admission. From his March admission, he was discharged on Abilify 5 mg a day. He has been followed up by [facility]. He notes that he has been also started on Remeron and had been taking 15 mg a day, though has not been taking it consistently. His Abilify dose has been increased up to 15 mg a day. He is in drug court and got a referral to a [facility] in [place]. He was there for 1 week. Prior to that, he had been smoking marijuana on a daily basis and using methamphetamine. He said that more recently he had been using meth about 2 times a month, though prior to that was using meth 2 to 3 times a week. He said he had been trying to cut down. He was somewhat vague on specifics as far as when he was using meth more regularly versus less use. It is noted that his urine drug screen on this admission is positive from just marijuana. He said that he had a lot of anxiety that was getting worse and worse during his week at [facility]. He has been feeling increasingly depressed and says that he can't go on living like this. He notes that he has been sleeping about 4 hours a night. He has loss of motivation, energy, and interest. He does not clearly describe hypomanic or manic symptoms. Presently, he is not noting hallucinations, though does note quite a bit of paranoia. He said 1 problem he was having at the treatment center was that when people were around him in a room with some people behind him, it got him very anxious. He notes that he has a significant history of trauma in his growing up. He also has had 23 years of group home time for different offenses. He notes that he was able to have access to drugs while in group home. He says he has had a few periods where he has been able to go 3 months free of any use of abusive substances, though has not had a stretch of time like that in the last few years at least. He is admitted for further evaluation. SUBSTANCE USE HISTORY: As above with primary use of marijuana and methamphetamine. He notes a past history of alcohol abuse, though says that he has stopped drinking completely. PAST MEDICAL HISTORY: The patient reports no current or chronic general health complaints. FAMILY AND SOCIAL HISTORY: He lives with his . He has 4 grown children. I refer the reader to previous admission notes in October and January of Dr. Shaikh for details. The patient has a GED. 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 He has not been working presently. He says he would have some interest in going back to school in the area of health, diet, and wellness. He says that he likes to work out as one of his prime activities. MENTAL STATUS EXAM: The patient sat with some restlessness. He gave fairly good eye contact. He answered questions with direct responses. His thoughts were clear, coherent, and goal-directed. He did not say a lot, though gave reasonable answers to questions. He had a thoughtful manner. His affect was anxious. His mood depressed. He was significantly distressed. He describes paranoid thinking. He notes thoughts of harm, though denies any immediate intent or plan. On cognitive exam, he was oriented x3 and alert. He could recall 2/3 objects in 4 minutes. He could give the days of the week in reverse order without difficulty. Fund of knowledge was average or possibly above average. Insight fair. PHYSICAL EXAMINATION: As per medical consultation. ASSESSMENT: This 47-year-old male is diagnosed with bipolar disorder by history and substance dependence, including methamphetamine and marijuana. At this point, he is in acute withdrawal as the primary treatment issue. It is uncertain what his social support network is. DIAGNOSES: 1. Bipolar disorder by history with psychotic features. 2. Marijuana dependence and acute marijuana withdrawal. 3. Methamphetamine dependence and acute methamphetamine withdrawal. 4. Possible posttraumatic stress disorder. RECOMMENDATIONS: The patient will be admitted for comprehensive medical, psychiatric, and psychosocial evaluation. We will engage the patient in individual and group therapeutic activities. I will start the patient on Zyprexa 5 mg 3 times a day. The aim of Zyprexa is to help reduce physiologic stress response relating to acute substance withdrawal. It is noteworthy that he has been diagnosed with bipolar disorder, though has only been at most subtherapeutic doses of medicines specific for a bipolar disorder. Also, he has not been in a period free of abusive substances for at least 6 weeks or more and thus the potential benefit from most psychotropics is likely to be limited at best. At this point, the same is the case for his being on a moderate dose of Abilify and Remeron. I did discuss with the patient that his issues with anxiety and mood problems along with paranoia are to the greatest likelihood triggered by withdrawal. The benefits of Zyprexa over other antipsychotics are it has the least potential for causing EPS, which can aggravate withdrawal symptoms in the short run. I will also start the patient on trazodone 100 mg at bedtime to help with sleep. We will focus on stabilization and discharge planning. MMODL / IJN: [id number] /
--- NOTE | 2022-09-29 04:06 | P.PN ---
Progress Note - Text Progress Note Date: 09/28/22 patient sleeping and was unable to evaluate
[2022-09-29 07:09] LABS: Basophils # (A) 0.1 k/uL (0-0.2); Basophils % (A) 1 %; Eosinophils # (A) 0.2 k/uL (0-0.7); Eosinophils % (A) 3 %; HCT 42.5 % (39.0-53.0); Lymphocytes # (A) 1.6 k/uL (1.0-4.8); Lymphocytes % (A) 24 %; MCH 33.2 pg (25.0-35.0); MCV 100.5 fL (80.0-100.0); Mean Platelet Volume 7.2; Monocytes # (A) 0.3 k/uL (0-1.0); Monocytes % (A) 4 %; Neutrophils # (A) 4.4 k/uL (1.3-7.7); Neutrophils % (A) 67 %; Platelet Count 274 k/uL (150-450); RBC 4.23 m/uL (4.30-5.90); RDW 12.1 % (11.5-15.5); WBC 6.7 k/uL (3.8-10.6)
[2022-09-29 07:27] LABS: ALT 15 U/L (4-49); AST 24 U/L (17-59); African American GFR (CKD) 80 (>60 ml/min/1.73 sqM); Albumin 3.8 g/dL (3.5-5.0); Alkaline Phosphatase 59 U/L (38-126); Anion Gap 4 mmol/L; Blood Urea Nitrogen 15 mg/dL (9-20); Calcium 9.1 mg/dL (8.4-10.2); Carbon Dioxide 29 mmol/L (22-30); Chloride 106 mmol/L (98-107); Glucose 112 mg/dL (74-99); Non-African American GFR(CKD) 69 (>60 ml/min/1.73 sqM); Sodium 139 mmol/L (137-145); Total Bilirubin 0.6 mg/dL (0.2-1.3); Total Protein 6.1 g/dL (6.3-8.2)
[2022-09-29] MEDS: OLANZapine 5 MG TAB PO SCH ×3 (08:22→20:01)
[2022-09-29] MEDS: NICOTINE 14MG/24HR PATCH TRANSDERM SCH (08:22)
[2022-09-29 11:26] VITALS: BMI 24.2
[2022-09-29 12:22] LABS: Chol/HDL Ratio 3.77 Ratio; LDL Cholesterol,Calculated 142.7 mg/dL (0.0-131.0); VLDL Calculation 16.66 mg/dL (5.00-40.00)
[2022-09-29] MEDS: ARIPiprazole 15 MG TAB PO SCH (16:24)
[2022-09-29] MEDS: traZODone HCL 100 MG TAB PO SCH (20:01)
[2022-09-29] MEDS: MIRTAZAPINE 15 MG TAB PO SCH (20:01)
--- NOTE | 2022-09-29 23:41 | P.PN ---
Progress Note - Text Progress Note Date: 09/29/22 patient refused medical evaluation at this time
[2022-09-30] MEDS: NICOTINE 14MG/24HR PATCH TRANSDERM SCH (07:57)
[2022-09-30] MEDS: OLANZapine 5 MG TAB PO SCH ×3 (07:57→20:01)
--- NOTE | 2022-09-30 08:58 | PN ---
PROGRESS NOTE DATE OF SERVICE: 09/29/2022 CHIEF COMPLAINT: The patient was depressed with suicidal thinking. INTERVAL HISTORY: The patient has been doing fair. He had a quiet day yesterday. He was out on the unit some. He tends to keep to himself. He did attend part of one group though then chose not to join another group. He said he slept well last night. Today he has been up. He again is seeing out on the unit some though mostly he has a quiet manner and keeps to himself. He responds to staff when they approach him, though he does not initiate any conversation. He slept well last night. Today he says that he feels things are a little better for him. He has not noted any thoughts about harming himself. He said that he did talk to his . His had been encouraging him to seek help. His does not have substance use issues herself and has been pushing him to move away from his drug use. It is noted that he lives with his and his 's father. The 4 children that he identified are the 's children, though the two of them have been 16 years and he sees those children as his. One of the children lives in the area and he sees that child pretty regularly. Two of the children are in the [facility] and 1 is out of the state. The patient does not note any side effects or problems since the start of Zyprexa. He does feel that some of the anxiety issues he was having seem quieter and he is a little more positive about his situation. He asked about discharge planning. MENTAL STATUS EXAMINATION: The patient sat quietly. He has a little bit of slowed psychomotor activity. His speech was monotone and soft. He answered questions with brief responses. His thoughts were clear and coherent. His affect was blunted. He did not show much emotional response 1 way or another. He had a reserved manner. He also had a thoughtful manner and did not appear to be significantly distressed. There was no indication of thought disorder. He voiced no thoughts of harm. Cognition was clear. ASSESSMENT: I will continue the current diagnosis and treatment plan. I encouraged the patient to make efforts to attend groups. We will continue medication the same namely Zyprexa 5 mg 3 times a day. I reviewed medication issues with the patient including indications, potential side effects, and longer concerns relating to metabolics and movement disorder issues. I again discussed expectations relating to early substance withdrawal from marijuana, I provided him with handouts regarding marijuana dependency and treatment issues. We will focus on stabilization and discharge planning. I anticipate the patient being discharged early in the week. It is noted that he does have interest in returning to a treatment program though he said he was not sure he would go back to [facility] in [place]. He did not give specifics on that. He seemed to suggest he might want a few weeks at home before entering another program and would be reasonable to look at setting up a family meeting with the patient and his prior to discharge. MMEMILIA / GREER: [id number] /
[2022-09-30] MEDS: ARIPiprazole 15 MG TAB PO SCH (16:12)
[2022-09-30] MEDS: traZODone HCL 100 MG TAB PO SCH (20:01)
[2022-09-30] MEDS: MIRTAZAPINE 15 MG TAB PO SCH (20:01)
--- NOTE | 2022-10-01 03:31 | PN ---
PROGRESS NOTE DATE OF SERVICE: 09/30/2022 CHIEF COMPLAINT: The patient was depressed with suicidal thinking. INTERVAL HISTORY: The patient has been doing fairly well. He had a quiet day yesterday. It is noted that when he first got on the unit, he kept to himself. He was reluctant to go to groups. He seemed to have some fairly reasonable plans in regard to treatment for substance use issues. It is noteworthy that yesterday he attended 4 groups and seemed to do well in the groups. He presents in a quiet manner. He said he slept well last night, which was a big positive for him. When I talked to him today, he said also anxiety that he has been struggling with is quite a bit less. He feels that the Zyprexa has been helping in that regard. He also says that his medications have helped him get better sleep than he has had in a long time. He has a good outlook. When I asked him about treatment options, he said that he did not want to [facility]. The main reason is that they have large groups and he said he felt very uncomfortable with people around him including people behind him. It would make him feel nervous if not setting off paranoia. He says that he has plans to enter [facility]. He understands the process and says that he just needs to be in touch with the coordinator for an admission. His plan is to return home from this hospital stay for 2 to 3 days while he gets some of his basics in order and then the anticipates an admission to [facility] for a 21-to 30-day program. He says that his is supportive and that he has talked with her about this plan. They do not have a car, so the will not be coming in today for a visitation. He does have arrangements for transport to [facility] with a friend. He tolerates his psychotropic medications. MENTAL STATUS: The patient was a little restless. He gave good eye contact. He answered questions appropriately. His thoughts were clear and coherent. He tends to present in a somewhat reserved quiet manner, though also he showed a little positive energy in how he presented. His mood was reserved, I am not clearly down or depressed. He seemed to have a good outlook and did not seem to be significantly distressed. There was no indication of thought disorder. He was denying thoughts of harm. He was oriented and alert. ASSESSMENT: I will continue the current diagnosis and treatment plan. I will continue psychotropic medications the same. We discussed discharge planning. The patient continues to show good progress and appears to be responding to his psychotropic medications. I would look for discharge possibly tomorrow. I encouraged the patient to talk with his to make sure they solidify any needed plans for his admission to [facility]. EVAN / GREER: [id number] /
[2022-10-01] MEDS: OLANZapine 5 MG TAB PO SCH ×3 (08:27→20:27)
[2022-10-01] MEDS: NICOTINE 14MG/24HR PATCH TRANSDERM SCH (08:27)
--- NOTE | 2022-10-01 09:01 | PN ---
PROGRESS NOTE DATE OF SERVICE: 10/01/2022 CHIEF COMPLAINT: The patient was depressed with suicidal thinking. He has substance use issues. INTERVAL HISTORY: The patient has been doing fairly well day by day. He has been showing good progress. He was out and about yesterday. He said his mood was considerably better. He has been having conversations with his in regard to discharge planning. He noted that he slept last night and said that he felt the best that he has felt in a very long time. He thinks that the Zyprexa seems to be helping him considerably with anxiety. He has a pretty solid plans in place for a discharge. He tolerates his psychotropic medications. MENTAL STATUS: The patient sat without restlessness. He gave good eye contact. He answered questions appropriately. His thoughts were clear. He was spontaneous and interactive. His affect was in a reasonable range. His mood was even. He was not depressed or distressed. There was no indication of thought disorder. He voiced no thoughts of harm. Cognition was clear. ASSESSMENT: I will continue the current diagnosis and treatment plan. The patient will continue Zyprexa 5 mg 3 times a day and Remeron 15 mg at bedtime. He has shown good progress and is stable for discharge. We discussed that the patient should be discharged tomorrow. I indicated that he probably could leave as early as 11 in the morning. I indicated that the final decision will be with Dr. Patel, though there are no issues that warrant the patient continuing in the hospital. He said that he has arrangements with his and then we will be home for a few days sorting out personal issues and then plans admission to [facility]. He knows the process to get an admission set up. MMODL / IJN: [id number] /
[2022-10-01] MEDS: ARIPiprazole 15 MG TAB PO SCH (16:30)
[2022-10-01] MEDS: traZODone HCL 100 MG TAB PO SCH (20:27)
[2022-10-01] MEDS: MIRTAZAPINE 15 MG TAB PO SCH (20:27)
[2022-10-02 04:53] VITALS: BP 128/70; PULSE 77; TEMP 97.9
[2022-10-02] MEDS: NICOTINE 14MG/24HR PATCH TRANSDERM SCH (08:29)
[2022-10-02] MEDS: OLANZapine 5 MG TAB PO SCH (08:30)
--- NOTE | 2022-10-02 11:29 | P.DS ---
Providers Date of admission: 09/28/22 15:17 Expected date of discharge: 10/02/22 Attending physician: Cristian Patel MD Consults: 09/28/22 15:23 Consult Physician Routine Consulting Provider: Adrianna Physician Consult Reason/Comments: medical management Do you want consulting provider notified?: Yes Primary care physician: Stated None - Discharge Diagnosis(es) (1) Bipolar 2 disorder Current Visit: Yes Status: Acute Priority: High (2) Generalized anxiety disorder Current Visit: Yes Status: Acute Priority: High (3) Cannabis use disorder, mild, abuse Current Visit: Yes Status: Chronic Priority: Medium (4) Methamphetamine abuse Current Visit: No Status: Chronic Priority: Medium Hospital Course: Admission HPI: Initial psychiatric evaluation was completed by Dr Foote on 09/28/2022 who wrote: "The patient is a 47-year-old male. He resides with his . He presents to the ED for evaluation after having left [facility] in [place]. The patient was depressed with suicidal thinking. He has had 2 recent psychiatric admissions to this facility in the last year including 10/10 and 02/02/2022. He presented essentially for similar circumstances as his current situation. In January, he was depressed. He had suicidal thinking. He had been drinking. He is feeling paranoid. He had been on lithium and Seroquel daily at discharge from his October admission. From his March admission, he was discharged on Abilify. He had been followed up by [facility]. He notes that he has been started on Remeron and has been taking 15 mg a day. He is in drug court and got a referral to [facility] in [place]. He was there for 1 week. Prior to that, he had been smoking marijuana on a daily basis and using methamphetamines. He said that more recently he had been using meth about 2 times per month, though prior to that he was using meth 2-3 times per week. He said he has been trying to cut down. It is noted that his urine drug screen on this admission is positive for just marijuana. He said that he had a lot of anxiety that was getting worse and worse during his week at [facility]. He has been feeling increasingly depressed and says that he can call on living like this. He notes that he has been sleeping about 4 hours per night. He has lost motivation, energy, and interest. He does not clearly describe hypomanic or manic symptoms. Presently, he is not noting hallucinations, though does note quite a bit of paranoia. He said that one problem he was having at the treatment center was that when people were around him in a room, he became very anxious. He notes that he has significant trauma in his growing up. He also had 23 years of senior care time for different offenses. He notes that he was able to have access to drugs while in senior care. He says that he has had a few periods where he has been able to go 3 months free of any abusive substances, though he has not had a stretch like that in the last few years. He is admitted for further evaluation. Hospital course: Upon admission to the unit patient was initially noted to be restless and in significant distress. Patient was however directable and agreeable to commence treatment. Patient got along well with other patients on the unit and followed unit protocol. Patient was compliant with the medications and denied any side effects throughout hospital course. Patient was started on Zyprexa in order to "help reduce physiological stressor sponsor relating to acute substance withdrawal." Furthermore, the patient was continued on trazodone to help him w ith sleep. He was continued on his medications of Abilify and Remeron. Patient spoke of his stressors and engaged in therapy both group and individual. Patient was also seen by medical team for history and physical exam. Throughout the course of the hospitalization patient gradually improved with regards to mood, sleep, and became future oriented with improved insight and judgment. On the day of discharge patient denied any suicidal or homicidal ideations intent or plan denied any auditory or visual hallucinations. Patient endorsed wanting to live for his health and family. The patient denied any access to guns or weapons. Patient denied any paranoia and did not endorse any delusions. Patient does have a significant history of substance abuse however was counseled on abstaining from all substances including alcohol and marijuana. Patient reports that he'll be going to [facility] at the end of this week. Patient was also counseled on the medications and need for regular compliance and was encouraged to follow-up with their outpatient appointment for mental health and also for primary care. Prior to discharge a family meeting will be arranged by social media sr strategy manager to answer any questions and ensure safety upon discharge. Mental status exam: General Appearance: Patient appears to be stated age is alert, pleasant, and cooperative. Patient is in no acute distress and has fair hygiene and grooming Behavior: Patient is calmly seated without any agitated behavior. Speech: Patient's speech is fluent and nonpressured. Mood/Affect: Patient reports their mood is "much better", affect is congruent and euthymic. Suicidality/Homicidality: Patient denies having any suicidal or homicidal ideation intent or plan. Perceptions: Patient denies any auditory or visual hallucinations. Though content/process: There is no evidence of any delusional thought content and thought process is linear and goal-directed. He is future oriented Memory and concentration: AOX3, grossly intact for the purposes of this session. Can spell "WORLD" backwards correctly. Judgment and insight: Improved with guarded prognosis Impression: Bipolar 2 disorder Generalized anxiety disorder Cannabis use disorder Methamphetamine use disorder Plan: -Continue with discharge today as patient has improved and stabilized psychiatrically and is not currently an imminent threat to himself and/or others. Patient will remain at chronically elevated risk for harm to self and/or others due to his impulsivity and polysubstance abuse. -Continue medications: Abilify 10 mg by mouth daily for mood stabilization Zyprexa 5 mg by mouth 3 times a day for mood stabilization - patient is on dual antipsychotic treatment. Should he do well on Zyprexa, Abilify may continue to be tapered and the patient can be treated with monotherapy with Zyprexa. Trazodone 100 mg by mouth at bedtime for insomnia Remeron 15 mg by mouth at bedtime for insomnia/appetite -Patient was counseled on the need for medication compliance and appropriate follow-up at mental health and also primary care for medical issues. Patient verbalized understanding and agreed. -Social work to arrange for and conduct family meeting to ensure safety upon discharge and answer any questions/concerns. Social work also to arrange for patients follow up appointments with [facility] for psychiatric care along with follow up with primary care provider. -Patient counseled on abstaining from recreational drugs and marijuana and alcohol. Was informed/educated on the adverse effects on their physical and mental health. Patient verbally agreed and understood. Patient reports that he'll be going to [facility] at the end of this week. -Patient was instructed to return to the hospital or seek immediate medical care if their psychiatric or medical symptoms do worsen or reoccur. -Psychoeducation and supportive therapy provided to patient. Risks and benefits of pharmacological treatment versus the risks and benefits of nontreatment weight and discussed. Informed consent discussion held. Common side effects of psychotropics discussed such as, but not limited to headache, GI disturbance, sexual dysfunction, movement disorders, sedation, and orthostatic hypotension. Life threatening and blackbox warnings of prescribed medications also discussed. Potential risks of operating a vehicle or heavy machinery discussed with patient at length. Advised on importance of compliance and a reliable and responsible manner. Patient advised to review FDA consumer labeling of all medications prior to taking. Patient verbalized understanding of potential risks, and agrees with current treatment plan. Patient advised to medically contact physician/emergency personnel if any acute changes in condition occur. Vital Signs Temp 97.9 F 10/02/22 04:52 Pulse 77 10/02/22 04:52 Resp 16 10/02/22 04:52 BP 128/70 10/02/22 04:52 Pulse Ox 99 10/02/22 04:52 FiO2 Laboratory Results WBC 6.7 k/uL (3.8-10.6) 09/29/22 06:30 RBC 4.23 m/uL (4.30-5.90) L 09/29/22 06:30 Hgb 14.0 gm/dL (13.0-17.5) 09/29/22 06:30 Hct 42.5 % (39.0-53.0) 09/29/22 06:30 MCV 100.5 fL (80.0-100.0) H 09/29/22 06:30 MCH 33.2 pg (25.0-35.0) 09/29/22 06:30 MCHC 33.0 g/dL (31.0-37.0) 09/29/22 06:30 RDW 12.1 % (11.5-15.5) 09/29/22 06:30 Plt Count 274 k/uL (150-450) 09/29/22 06:30 MPV 7.2 09/29/22 06:30 Neutrophils % 67 % 09/29/22 06:30 Lymphocytes % 24 % 09/29/22 06:30 Monocytes % 4 % 09/29/22 06:30 Eosinophils % 3 % 09/29/22 06:30 Basophils % 1 % 09/29/22 06:30 Neutrophils # 4.4 k/uL (1.3-7.7) 09/29/22 06:30 Lymphocytes # 1.6 k/uL (1.0-4.8) 09/29/22 06:30 Monocytes # 0.3 k/uL (0-1.0) 09/29/22 06:30 Eosinophils # 0.2 k/uL (0-0.7) 09/29/22 06:30 Basophils # 0.1 k/uL (0-0.2) 09/29/22 06:30 Sodium 139 mmol/L (137-145) 09/29/22 06:30 Potassium 5.0 mmol/L (3.5-5.1) 09/29/22 06:30 Chloride 106 mmol/L (98-107) 09/29/22 06:30 Carbon Dioxide 29 mmol/L (22-30) 09/29/22 06:30 Anion Gap 4 mmol/L 09/29/22 06:30 BUN 15 mg/dL (9-20) 09/29/22 06:30 Creatinine 1.23 mg/dL (0.66-1.25) 09/29/22 06:30 Est GFR (CKD-EPI)AfAm 80 (>60 ml/min/1.73 sqM) 09/29/22 06:30 Est GFR (CKD-EPI)NonAf 69 (>60 ml/min/1.73 sqM) 09/29/22 06:30 Glucose 112 mg/dL (74-99) H 09/29/22 06:[address] Glu mg/dL 132 09/29/22 06:30 Hemoglobin A1c 6.2 % (0.0-6.0) H 09/29/22 06:30 Calcium 9.1 mg/dL (8.4-10.2) 09/29/22 06:30 Total Bilirubin 0.6 mg/dL (0.2-1.3) 09/29/22 06:30 AST 24 U/L (17-59) 09/29/22 06:30 ALT 15 U/L (4-49) 09/29/22 06:30 Alkaline Phosphatase 59 U/L (38-126) 09/29/22 06:30 Total Protein 6.1 g/dL (6.3-8.2) L 09/29/22 06:30 Albumin 3.8 g/dL (3.5-5.0) 09/29/22 06:30 Triglycerides 83.30 mg/dL (0.00-149.00) 09/29/22 06:30 Cholesterol 217.00 mg/dL (0.00-200.00) H 09/29/22 06:30 LDL Cholesterol, Calc 142.7 mg/dL (0.0-131.0) H 09/29/22 06:30 VLDL Cholesterol, Calc 16.66 mg/dL (5.00-40.00) 09/29/22 06:30 HDL Cholesterol 57.60 mg/dL (40.00-60.00) 09/29/22 06:30 Cholesterol/HDL Ratio 3.77 Ratio 09/29/22 06:30 TSH 0.944 mIU/L (0.465-4.680) 09/29/22 06:30 Urine Color Yellow 09/28/22 10:31 Urine Appearance Clear (Clear) 09/28/22 10:31 Urine pH 6.5 (5.0-8.0) 09/28/22 10:31 Ur Specific Tripp 1.014 (1.001-1.035) 09/28/22 10:31 Urine Protein Negative (Negative) 09/28/22 10:31 Urine Glucose (UA) Negative (Negative) 09/28/22 10:31 Urine Ketones Negative (Negative) 09/28/22 10:31 Urine Blood Trace (Negative) H 09/28/22 10:31 Urine Nitrite Negative (Negative) 09/28/22 10:31 Urine Bilirubin Negative (Negative) 09/28/22 10:31 Urine Urobilinogen <2.0 mg/dL (<2.0) 09/28/22 10:31 Ur Leukocyte Esterase Negative (Negative) 09/28/22 10:31 Urine RBC 3 /hpf (0-5) 09/28/22 10:31 Urine WBC <1 /hpf (0-5) 09/28/22 10:31 Urine Opiates Screen Not Detected (NotDetected) 09/28/22 10:31 Ur Oxycodone Screen Not Detected (NotDetected) 09/28/22 10:31 Urine Methadone Screen Not Detected (NotDetected) 09/28/22 10:31 Ur Propoxyphene Screen Not Detected (NotDetected) 09/28/22 10:31 Ur Barbiturates Screen Not Detected (NotDetected) 09/28/22 10:31 U Tricyclic Antidepress Not Detected (NotDetected) 09/28/22 10:31 Ur Phencyclidine Scrn Not Detected (NotDetected) 09/28/22 10:31 Ur Amphetamines Screen Not Detected (NotDetected) 09/28/22 10:31 U Methamphetamines Scrn Not Detected (NotDetected) 09/28/22 10:31 U Benzodiazepines Scrn Not Detected (NotDetected) 09/28/22 10:31 Urine Cocaine Screen Not Detected (NotDetected) 09/28/22 10:31 U Marijuana (THC) Screen Detected (NotDetected) H 09/28/22 10:31 Coronavirus (PCR) Not Detected (Not Detectd) 09/28/22 14:26 Allergies Allergy/AdvReac Type Severity Reaction Status Date / Time No Known Allergies Allergy Verified 09/28/22 11:10 Patient Condition at Discharge: Stable Plan - Discharge Summary Discharge Rx Participant: Yes New Discharge Prescriptions: New Nicotine 14Mg/24Hr Patch [Habitrol] 1 patch TRANSDERM DAILY 15 Days patch Mirtazapine [Remeron] 15 mg PO HS 30 Days tab ARIPiprazole [Abilify] 10 mg PO DAILY@1700 30 Days tab traZODone HCL [Desyrel] 100 mg PO HS 30 Days tab OLANZapine [ZyPREXA] 5 mg PO TID 30 Days tab Discontinued ARIPiprazole [Abilify] 15 mg PO DAILY Mirtazapine [Remeron] 15 mg PO DIRECTED Discharge Medication List ARIPiprazole [Abilify] 10 mg PO DAILY@1700 30 Days tab 10/02/22 [Rx] Mirtazapine [Remeron] 15 mg PO HS 30 Days tab 10/02/22 [Rx] Nicotine 14Mg/24Hr Patch [Habitrol] 1 patch TRANSDERM DAILY 15 Days patch 10/02/22 [Rx] OLANZapine [ZyPREXA] 5 mg PO TID 30 Days tab 10/02/22 [Rx] traZODone HCL [Desyrel] 100 mg PO HS 30 Days tab 10/02/22 [Rx] Follow up Appointment(s)/Referral(s): [facility] [NON-STAFF] - 1 Week Activity/Diet/Wound Care/Special Instructions: Avoid the use of street drugs and alcohol. Take all prescriptions as prescribed. When you are in need of refills on your medications, please contact your medical provider and/or outpatient psychiatrist to have this done. Please go to scheduled outpatient appointment for aftercare treatment. If symptoms return or become worse, call the crisis line at and/or go to the nearest emergency room for evaluation Discharge Disposition: HOME SELF-CARE
== END 2022-10-02 12:36 | disposition home or self-care (01) | DRG 885 ==
LOC: EC 10:10 → 3MHU 15:17
PROVIDERS: ADMIT Psychiatry & Neurology Psychiatry; ATTEND Psychiatry & Neurology Psychiatry
DX: F31.81 Bipolar II disorder (principal); F15.23 Other stimulant dependence with withdrawal; R45.851 Suicidal ideations; E11.9 Type 2 diabetes mellitus without complications; F10.20 Alcohol dependence, uncomplicated; F12.23 Cannabis dependence with withdrawal; F17.200 Nicotine dependence, unspecified, uncomplicated; F41.1 Generalized anxiety disorder; G47.00 Insomnia, unspecified; I10 Essential (primary) hypertension; I25.10 Atherosclerotic heart disease of native coronary artery without angina pectoris; J44.9 Chronic obstructive pulmonary disease, unspecified; Z20.822 Contact with and (suspected) exposure to COVID-19; Z59.00 Homelessness unspecified; Z59.6 Low income; Z62.810 Personal history of physical and sexual abuse in childhood; Z79.899 Other long term (current) drug therapy
CPT/HCPCS: 80053; 80061; 80306; 81001; 82075; 83036; 84443; 85025; 87635; 99285

== ENCOUNTER 2023-05-03 00:21 | Emergency (ER) | payer OTHER ==
[2023-05-03 00:47] VITALS: RESP 16; TEMP 97
[2023-05-03] MEDS ORDERED: methylPREDNISolone SOD SUCCI 125 MG/2 ML VIAL IM ONE (01:25)
[2023-05-03] MEDS ORDERED: TRIAMCINOLONE 0.1% CREAM 80 GM TUBE TOPICAL STA (01:25)
[2023-05-03] MEDS ORDERED: hydrOXYzine HCL 25 MG TAB PO STA (01:27)
[2023-05-03] MEDS ORDERED: FAMOTIDINE 20 MG TAB PO STA (01:27)
--- NOTE | 2023-05-03 01:40 | ED ---
Skin/Abscess/FB HPI - General Chief complaint: Skin/Abscess/Foreign Body Stated complaint: Outbreak on arms Time Seen by Provider: 05/03/23 00:47 Source: patient, RN notes reviewed Mode of arrival: ambulatory Limitations: no limitations - History of Present Illness Initial comments: This is a 48-year-old male who presents to the emergency department for a rash. Patient states that the rash started on both forearms a couple of days ago. Believes that this is from something that he came into contact with at work. States that this is very itchy. He took one dose of Benadryl, which he states was mildly effective for the itching, but has otherwise not done anything to treat his symptoms. Denies any fevers, chills, sore throat, cough, dyspnea, chest pain, palpitations, abdominal pain, nausea, vomiting, diarrhea, back pain, or headaches. MD complaint: rash - Related Data Previous Rx's Medication Instructions Recorded ARIPiprazole [Abilify] 10 mg PO DAILY@1700 30 Days tab 10/02/22 Mirtazapine [Remeron] 15 mg PO HS 30 Days tab 10/02/22 Nicotine 14Mg/24Hr Patch [Habitrol] 1 patch TRANSDERM DAILY 15 Days 10/02/22 patch OLANZapine [ZyPREXA] 5 mg PO TID 30 Days tab 10/02/22 traZODone HCL [Desyrel] 100 mg PO HS 30 Days tab 10/02/22 predniSONE 50 mg PO DAILY 5 Days #5 tab 05/03/23 Allergies Allergy/AdvReac Type Severity Reaction Status Date / Time No Known Allergies Allergy Verified 09/28/22 11:10 Review of Systems ROS Statement: Those systems with pertinent positive or pertinent negative responses have been documented in the HPI. ROS Other: All systems not noted in ROS Statement are negative. Past Medical History Past Medical History: No Reported History Additional Past Medical History / Comment(s): deg disc disease History of Any Multi-Drug Resistant Organisms: None Reported Past Surgical History: Orthopedic Surgery Additional Past Surgical History / Comment(s): left knee arthroscopy Past Anesthesia/Blood Transfusion Reactions: No Reported Reaction Past Psychological History: Anxiety, Bipolar, Depression Smoking Status: Current every day smoker Past Alcohol Use History: None Reported Past Drug Use History: Marijuana, Methamphetamine General Exam Limitations: no limitations General appearance: alert, in no apparent distress Head exam: Present: atraumatic, normocephalic, normal inspection Respiratory exam: Present: normal lung sounds bilaterally. Absent: respiratory distress, wheezes, rales, rhonchi, stridor Cardiovascular Exam: Present: regular rate, normal rhythm, normal heart sounds. Absent: systolic murmur, diastolic murmur, rubs, gallop, clicks Neurological exam: Present: alert, oriented X3, CN II-XII intact Psychiatric exam: Present: normal affect, normal mood Skin exam: Present: other (Urticaria to the bilateral forearms) Course Vital Signs 05/03/23 05/03/23 00:44 02:00 Temperature 97.0 F L Pulse Rate 55 L 50 L Respiratory 16 16 Rate Blood Pressure 123/80 124/76 O2 Sat by Pulse 98 99 Oximetry Medical Decision Making - Medical Decision Making This is a 48-year-old male who presents to the emergency department for a rash. Was pt. sent in by a medical professional or institution? @ -No Did you speak to anyone other than the patient for history? @ -No Did you review nursing and triage notes? @ -Yes, and I agree, it is accurate with regards to the patient's symptoms. Were old charts reviewed? @ -No Differential Diagnosis? @ -Differential Rash: Roseola, measles, Lyme disease, erythema multiforme, cellulitis, toxic shock syndrome, Angel Gideon syndrome, Kawasaki disease, alessio mountain spotted fever, contact dermatitis, allergic dermatitis, measles, mumps, rubella, varicella, meningococcal disease, drug reaction, coxsackievirus, This is not meant to be an all-inclusive list. EKG interpreted by me (3pts min.)? @ -Not obtained X-rays interpreted by me (1pt min.)? @ -Not obtained CT interpreted by me (1pt min.)? @ -Not obtained U/S interpreted by me (1pt. min.)? @ -Not obtained What testing was considered but not performed? (CT, X-rays, U/S, labs)? Why? @ -None What meds were considered but not given? Why? @ -None Did you discuss the management of the patient with other professionals? @ -No Did you reconcile home meds? @ -No Was smoking cessation discussed for >3mins.? @ -No Was critical care preformed (if so, how long)? @ -No Were there social determinants of health that impacted care today? How? (Homelessness, low income, unemployed, alcoholism, drug addiction, transportation, low edu. Level, literacy, decrease access to med. care, senior living, rehab)? @ -No Was there de-escalation of care discussed even if they declined? (Discuss DNR or withdrawal of care, Hospice)? @ -No What co-morbidities impacted this encounter? (DM, HTN, Smoking, COPD, CAD, Cancer, CVA, Hep., AIDS, mental health diagnosis, sleep apnea, morbid obesity)? @ -None Was patient admitted / discharged? @ -Discharged. Patient was given a dose of IM Solu-Medrol as well as a dose of Atarax and Pepcid in the emergency department. He was also given a bottle of triamcinolone cream. Triamcinolone cream was applied and he was given the rest of the bottle to take home. Advised to use this 2-3 times daily for the next week. Prescription for 5 day course of prednisone provided as well with dosing instructions reviewed. Advised to take this with Benadryl and Pepcid for optimal effect. Undiagnosed new problem with uncertain prognosis? @ -None Drug Therapy requiring intensive monitoring for toxicity (Heparin, Nitro, Insulin, Cardizem)? @ -None Were any procedures done? @ -None Diagnosis/symptom? @ -Contact dermatitis Acute, or Chronic, or Acute on Chronic? @ -Acute Uncomplicated (without systemic symptoms) or Complicated (systemic symptoms)? @ -Uncomplicated Side effects of treatment? @ -None Exacerbation, Progression, or Severe Exacerbation] @ -Not applicable Poses a threat to life or bodily function? @ -No Return precautions reviewed in depth, the patient is instructed to return to the emergency department with any new, worsening, or concerning symptoms. Patient verbalized understanding. This case was discussed in detail with the attending ED physician, Dr. Nieves. Presentation, findings, and treatment plan discussed in detail as well. Disposition Clinical Impression: Contact dermatitis Disposition: HOME SELF-CARE Instructions (If sedation given, give patient instructions): Contact Dermatitis (ED) Additional Instructions: Return to the emergency department with any new, worsening, or concerning symptoms. Take the prednisone daily for 5 days. You can take this with Benadryl and Pepcid to increase their effects. Continue to apply the cream to your arms 3-4 times daily for 7 days to help with the itching. Follow up with your primary care provider in 1-2 days. Prescriptions: predniSONE 50 mg PO DAILY 5 Days #5 tab Is patient prescribed a controlled substance at d/c from ED?: No Referrals: Monica Henry MD [Primary Care Provider] - 1-2 days
[2023-05-03 02:01] VITALS: BP 124/76; PULSE 50
== END 2023-05-03 02:01 | disposition home or self-care (01) ==
LOC: EC 00:21
DX: L25.9 Unspecified contact dermatitis, unspecified cause (principal); Z86.59 Personal history of other mental and behavioral disorders; F17.200 Nicotine dependence, unspecified, uncomplicated; F12.90 Cannabis use, unspecified, uncomplicated
CPT/HCPCS: 99283; 96372; J2930

== ENCOUNTER 2023-08-03 11:44 | Emergency (ER) | payer OTHER ==
[2023-08-03 11:56] VITALS: RESP 18
[2023-08-03] MEDS ORDERED: LORazepam 1 MG TAB PO STA (12:02)
[2023-08-03 13:22] LABS: Amphetamine Screen,Urine Detected (NotDetected); Barbiturate Screen,Urine Not Detected (NotDetected); Benzodiazepines Screen,Urine Not Detected (NotDetected); Cocaine Screen,Urine Not Detected (NotDetected); Methadone Screen, Urine Not Detected (NotDetected); Opiate Screen,Urine Not Detected (NotDetected); Oxycodone Screen, Urine Not Detected (NotDetected); Phencyclidine Screen,Urine Not Detected (NotDetected); Tricyclic Antidepressant,Urine Not Detected (NotDetected); Urn Cannabinoid Scrn Detected (NotDetected)
--- NOTE | 2023-08-03 13:37 | ED ---
General Adult HPI <Richar Nieves - Last Filed: 08/03/23 18:06> - General Source: patient, EMS, RN notes reviewed, old records reviewed Mode of arrival: EMS Limitations: no limitations <Kota Zamora - Last Filed: 08/04/23 09:56> - General Chief complaint: Psychiatric Symptoms Stated complaint: Mental health Time Seen by Provider: 08/03/23 11:46 - History of Present Illness Initial comments: 48 male who presented ER for psychiatric evaluation today by PD and petition by PD for evaluation of psychiatric illness, no diarrhea or trauma per history of polysubstance abuse and psychiatric illness underlying. (Richar Nieves) Patient is a 48-year-old male who presents emergency department for psychiatric evaluation. Brought in by police. He is petitioned. Has a history of polysubstance abuse, alcohol abuse, psychiatric illness. He has no physical complaints at this time. Does endorse suicidal ideations with a plan of jumping into traffic. As a history of attempted suicide by overdose but states he did not attempt this today. Did use meth yesterday. Drink last night as well. Has no other acute complaints. Denies homicidal ideation, plans or attempts. Denies visual or auditory hallucinations. (Kota Zamora) - Related Data Home Medications Medication Instructions Recorded Confirmed OLANZapine/FLUOXETINE HCL [Symbyax 1 cap PO DAILY 08/03/23 08/03/23 6-25 mg Capsule] Allergies Allergy/AdvReac Type Severity Reaction Status Date / Time No Known Allergies Allergy Verified 08/03/23 15:38 Review of Systems ROS Other: All systems not noted in ROS Statement are negative. <Richar Nieves - Last Filed: 08/03/23 18:06> ROS Other: All systems not noted in ROS Statement are negative. <Kota Zamora - Last Filed: 08/04/23 09:56> ROS Statement: Those systems with pertinent positive or pertinent negative responses have been documented in the HPI. Review of Systems: CONST: Denies fever EYES: Denies blurry vision ENT: Denies nasal congestion C/V: Denies Chest pain RESP: Denies shortness of breath GI: Denies abdominal pain : Denies dysuria SKIN: Denies rash. MSK: Denies joint pain. NEURO: Denies headache PSYCH: Denies homicidal ideations/plans/attempts. Denies visual or auditory davey llucinations. He endorses suicidal ideation, plan. Denies attempt. (Kota Zamora) Past Medical History Past Medical History: No Reported History Additional Past Medical History / Comment(s): deg disc disease History of Any Multi-Drug Resistant Organisms: None Reported Past Surgical History: Orthopedic Surgery Additional Past Surgical History / Comment(s): left knee arthroscopy Past Anesthesia/Blood Transfusion Reactions: No Reported Reaction Past Psychological History: Anxiety, Bipolar, Depression Smoking Status: Current every day smoker Past Alcohol Use History: None Reported Past Drug Use History: Marijuana, Methamphetamine <Kota Zamora - Last Filed: 08/04/23 09:56> General Exam General appearance: alert, in no apparent distress, anxious Head exam: Present: atraumatic, normocephalic, normal inspection Eye exam: Present: normal appearance, PERRL, EOMI. Absent: scleral icterus, conjunctival injection, periorbital swelling ENT exam: Present: normal exam, mucous membranes moist Neck exam: Present: normal inspection. Absent: tenderness, meningismus, lymphadenopathy Respiratory exam: Present: normal lung sounds bilaterally. Absent: respiratory distress, wheezes, rales, rhonchi, stridor Cardiovascular Exam: Present: normal rhythm, tachycardia, normal heart sounds. Absent: systolic murmur, diastolic murmur, rubs, gallop, clicks GI/Abdominal exam: Present: soft, normal bowel sounds. Absent: distended, tenderness, guarding, rebound, rigid Extremities exam: Present: normal inspection, full ROM, normal capillary refill. Absent: tenderness, pedal edema, joint swelling, calf tenderness Back exam: Present: normal inspection Neurological exam: Present: alert, oriented X3, CN II-XII intact Psychiatric exam: Present: normal affect, normal mood Skin exam: Present: warm, dry, intact, normal color. Absent: rash <Richar Nieves - Last Filed: 08/03/23 18:06> Limitations: no limitations <Kota Zamora - Last Filed: 08/04/23 09:56> - General Exam Comments Initial Comments: General: Appears in no acute distress. Appears anxious. HEAD: Normal with no signs of head trauma. EYES: PERRLA, EOMI, conjunctiva normal, no discharge. ENT: Hearing grossly intact, normal oropharynx. RESPIRATORY: Clear breath sounds bilaterally. No wheezes, rales, or rhonchi. C/V: Tachycardic. S1 and S2 auscultated, no edema, peripheral pulses 2+ and intact throughout ABD: Abd is soft, nontender, nondistended EXT: Normal range of motion, no obvious deformity SKIN: No rashes or lesions observed on exposed skin. NEURO: Alert and oriented x 4. (Kota Zamora) Course <Richar Nieves - Last Filed: 08/03/23 18:06> Vital Signs 08/03/23 08/03/23 08/03/23 11:46 12:44 18:11 Temperature 98.0 F 98 F 98.1 F Pulse Rate 131 H 73 78 Respiratory 18 18 18 Rate Blood Pressure 120/73 120/75 121/83 O2 Sat by Pulse 96 98 97 Oximetry - Reevaluation(s) Reevaluation #1: 08/03/23 18:06 Medical records reviewed (Richar Nieves) Reevaluation #2: 08/03/23 18:06 Medically clear for psychiatric evaluation (Richar Nieves) Medical Decision Making <Richar Nieves - Last Filed: 08/03/23 18:06> <Kota Zamora - Last Filed: 08/04/23 09:56> - Medical Decision Making 48 male who was seen and evaluated by psychiatry here in the ER. Patient is stable for discharge home (Richar Nieves) Was pt. sent in by a medical professional or institution (, PA, ELECTRIC MOTOR CONTROL ASSEMBLER, urgent care, hospital, or longterm...) When possible be specific @ -No Did you speak to anyone other than the patient for history (EMS, parent, family, police, friend...)? What history was obtained from this source @ -No Did you review nursing and triage notes (agree or disagree)? Why? @ -I reviewed and agree with nursing and triage notes Were old charts reviewed (outside hosp., previous admission, EMS record, old EKG, old radiological studies, urgent care reports/EKG's, longterm records)? Report findings @ -Old charts reviewed.Reviewed petition from police. Differential Diagnosis (chest pain, altered mental status, abdominal pain women, abdominal pain men, vaginal bleeding, weakness, fever, dyspnea, syncope, headache, dizziness, GI bleed, back pain, seizure, CVA, palpatations, mental health, musculoskeletal)? @ -Differential Mental Health Depression, anxiety, bipolar, psychosis, schizophrenia, borderline personality, situational depression, adjustment disorder, behavioral disorder, brain tumor, malingering, substance abuse, encephalopathy, medication reaction, dementia, hypothyroidism, degenerative neurologic disorder, lupus.... This is not meant to be all-inclusive list EKG interpreted by me (3pts min.). @ -None done X-rays interpreted by me (1pt min.). @ -None done CT interpreted by me (1pt min.). @ -None done U/S interpreted by me (1pt. min.). @ -None done What testing was considered but not performed or refused? (CT, X-rays, U/S, labs)? Why? @ -None What meds were considered but not given or refused? Why? @ -None Did you discuss the management of the patient with other professionals (professionals i.e. , PA, ELECTRIC MOTOR CONTROL ASSEMBLER, lab, RT, psych nurse, social media marketer, solar applications development engineer, teacher, juvenile justice officer, immigration case worker)? Give summary @ -EPS notified of the consult Was smoking cessation discussed for >3mins.? @ -No Was critical care preformed (if so, how long)? @ -No Were there social determinants of health that impacted care today? How? (Homel essness, low income, unemployed, alcoholism, drug addiction, transportation, low edu. Level, literacy, decrease access to med. care, correction, rehab)? @ -No Was there de-escalation of care discussed even if they declined (Discuss DNR or withdrawal of care, Hospice)? DNR status @ -No What co-morbidities impacted this encounter? (DM, HTN, Smoking, COPD, CAD, Cancer, CVA, ARF, Chemo, Hep., AIDS, mental health diagnosis, sleep apnea, morbid obesity)? @ -None Was patient admitted / discharged? Hospital course, mention meds given and route, prescriptions, significant lab abnormalities, going to OR and other pertinent info. @ -Based on patient's presentation and physical exam, presents for psychiatric evaluation. Appears acutely intoxicated with alcohol. He was placed in green scrubs. Suicide precautions ordered. Sitter ordered. BAT is 0.101. UDS is positive for amphetamines, marijuana. Patient ran a small dose of oral Ativan. At this time, patient is medically cleared for evaluation by psychiatry when sober. EPS notified of the consult. They will evaluate the patient when sober. Disposition is pending psychiatric evaluation. Patient was petitioned by police. Patient eventually evaluated by EPS, patient was cleared for discharge. Does not meet inpatient criteria for psychiatric admission. Undiagnosed new problem with uncertain prognosis? @ -No Drug Therapy requiring intensive monitoring for toxicity (Heparin, Nitro, Insulin, Cardizem)? @ -No Were any procedures done? @ -No Diagnosis/symptom? @ -Encounter for psychiatric evaluation, suicidal ideation Acute, or Chronic, or Acute on Chronic? @ -Acute Uncomplicated (without systemic symptoms) or Complicated (systemic symptoms)? @ -Uncomplicated Side effects of treatment? @ -No Exacerbation, Progression, or Severe Exacerbation? @ -No Poses a threat to life or bodily function? How? (Chest pain, [place], [place], pneumonia, PE, COPD, DKA, ARF, appy, cholecystitis, CVA, Diverticulitis, Homicidal, Suicidal, threat to staff... and all critical care pts) @ -yes Diagnosis/symptom? @ -Alcohol intoxication Acute, or Chronic, or Acute on Chronic? @ -Acute Uncomplicated (without systemic symptoms) or Complicated (systemic symptoms)? @ -Uncomplicated Side effects of treatment? @ -none Exacerbation, Progression, or Severe Exacerbation] @ -no Poses a threat to life or bodily function? @ -no Diagnosis/symptom? @ -Polysubstance abuse Acute, or Chronic, or Acute on Chronic? @ -Acute on chronic Uncomplicated (without systemic symptoms) or Complicated (systemic symptoms)? @ -complicated Side effects of treatment? @ -none Exacerbation, Progression, or Severe Exacerbation] @ -no Poses a threat to life or bodily function? @ -possibly (Kota Zamora) - Lab Data Lab Results 08/03/23 Range/Units 12:52 Urine Opiates Screen Not Detected (NotDetected) Ur Oxycodone Screen Not Detected (NotDetected) Urine Methadone Screen Not Detected (NotDetected) Ur Propoxyphene Screen Not Detected (NotDetected) Ur Barbiturates Screen Not Detected (NotDetected) U Tricyclic Antidepress Not Detected (NotDetected) Ur Phencyclidine Scrn Not Detected (NotDetected) Ur Amphetamines Screen Detected H (NotDetected) U Methamphetamines Scrn Detected H (NotDetected) U Benzodiazepines Scrn Not Detected (NotDetected) Urine Cocaine Screen Not Detected (NotDetected) U Marijuana (THC) Screen Detected H (NotDetected) Disposition Is patient prescribed a controlled substance at d/c from ED?: No <Richar Nieves - Last Filed: 08/03/23 18:06> <Kota Zamora - Last Filed: 08/04/23 09:56> Clinical Impression: Encounter for psychiatric assessment, Polysubstance abuse, Alcohol intoxicat ion, Bipolar disorder Disposition: HOME SELF-CARE Condition: Fair Instructions (If sedation given, give patient instructions): Mood Disorders (ED) Referrals: Monica Henry MD [Primary Care Provider] - 1-2 days
[2023-08-03 18:29] VITALS: BP 121/83; PULSE 78; TEMP 98.1
== END 2023-08-03 18:13 | disposition home or self-care (01) ==
LOC: EC 11:44
DX: F31.9 Bipolar disorder, unspecified (principal); F10.129 Alcohol abuse with intoxication, unspecified; F19.11 Other psychoactive substance abuse, in remission; Z00.8 Encounter for other general examination; F41.9 Anxiety disorder, unspecified; F17.200 Nicotine dependence, unspecified, uncomplicated; F12.90 Cannabis use, unspecified, uncomplicated; F15.90 Other stimulant use, unspecified, uncomplicated; Z79.899 Other long term (current) drug therapy
CPT/HCPCS: 80306; 82075; 99285

== ENCOUNTER 2023-08-17 05:04 | Emergency (ER) | payer OTHER ==
--- NOTE | 2023-08-17 07:13 | ED ---
Psych HPI - General Chief Complaint: Psychiatric Symptoms Stated Complaint: Mental Health Time Seen by Provider: 08/17/23 05:22 Source: patient Mode of arrival: ambulatory - History of Present Illness MD Complaint: suicidal ideation, feels depressed -: days(s) Associated Psychiatric Symptoms: depression, suicidal ideation History of same: Yes Quality: getting worse Improves With: none Worsens With: none - Related Data Home Medications Medication Instructions Recorded Confirmed OLANZapine/FLUOXETINE HCL [Symbyax 1 cap PO DAILY 08/03/23 08/17/23 6-25 mg Capsule] Allergies Allergy/AdvReac Type Severity Reaction Status Date / Time No Known Allergies Allergy Verified 08/17/23 13:54 Review of Systems ROS Statement: Those systems with pertinent positive or pertinent negative responses have been documented in the HPI. ROS Other: All systems not noted in ROS Statement are negative. Constitutional: Denies: fever, chills Respiratory: Denies: cough, dyspnea Cardiovascular: Denies: chest pain, palpitations Gastrointestinal: Denies: abdominal pain, nausea, vomiting Genitourinary: Denies: dysuria Musculoskeletal: Denies: back pain Skin: Denies: rash Neurological: Denies: headache Psychiatric: Reports: depression, suicidal thoughts. Denies: auditory halluc inations, visual hallucinations, homicidal thoughts Past Medical History Past Medical History: No Reported History Additional Past Medical History / Comment(s): deg disc disease History of Any Multi-Drug Resistant Organisms: None Reported Past Surgical History: Orthopedic Surgery Additional Past Surgical History / Comment(s): left knee arthroscopy Past Anesthesia/Blood Transfusion Reactions: No Reported Reaction Past Psychological History: Anxiety, Bipolar, Depression Smoking Status: Current every day smoker Past Alcohol Use History: None Reported Past Drug Use History: Marijuana, Methamphetamine General Exam Limitations: no limitations General appearance: alert, in no apparent distress Head exam: Present: atraumatic, normocephalic Eye exam: Present: normal appearance. Absent: scleral icterus, conjunctival i njection Neck exam: Present: normal inspection Respiratory exam: Present: normal lung sounds bilaterally. Absent: respiratory distress, wheezes, rales, rhonchi, stridor Cardiovascular Exam: Present: regular rate, normal rhythm, normal heart sounds. Absent: systolic murmur, diastolic murmur, rubs, gallop GI/Abdominal exam: Present: soft. Absent: distended, tenderness, guarding, rebound, rigid, mass Extremities exam: Present: normal inspection, normal capillary refill. Absent: pedal edema, calf tenderness Back exam: Present: normal inspection. Absent: CVA tenderness (R), CVA tenderness (L) Neurological exam: Present: alert Psychiatric exam: Present: suicidal ideation. Absent: agitated, anxious, flat affect, manic, homicidal ideation Skin exam: Present: warm, dry, intact, normal color. Absent: rash Course Vital Signs 08/17/23 08/18/23 08/19/23 05:09 06:00 00:25 Temperature 98.1 F 98.3 F 98.3 F Pulse Rate 69 72 86 Respiratory 18 16 18 Rate Blood Pressure 166/96 154/86 126/83 O2 Sat by Pulse 97 98 99 Oximetry 08/19/23 08/19/23 08/19/23 04:27 05:24 07:45 Temperature 99.0 F Pulse Rate 76 Respiratory 16 14 18 Rate Blood Pressure 124/82 O2 Sat by Pulse 98 Oximetry 08/19/23 08/19/23 09:03 14:00 Temperature 98.5 F Pulse Rate 72 Respiratory 18 18 Rate Blood Pressure 132/76 O2 Sat by Pulse 100 Oximetry Medical Decision Making - Medical Decision Making Was pt. sent in by a medical professional or institution (, [facility], LOGGING RAFTER LABORER, urgent care, hospital, or [facility]...) When possible be specific @ -[No] Did you speak to anyone other than the patient for history (EMS, parent, family, police, friend...)? What history was obtained from this source @ -[No] Did you review nursing and triage notes (agree or disagree)? Why? @ -[I reviewed and agree with nursing and triage notes] Were old charts reviewed (outside hosp., previous admission, EMS record, old EKG, old radiological studies, urgent care reports/EKG's, [facility] records)? Report findings @ -[Petition's reviewed Differential Diagnosis (chest pain, altered mental status, abdominal pain women, abdominal pain men, vaginal bleeding, weakness, fever, dyspnea, syncope, headache, dizziness, GI bleed, back pain, seizure, CVA, palpatations, mental health, musculoskeletal)? @ -[Differential Mental Health Depression, anxiety, bipolar, psychosis, schizophrenia, borderline personality, situational depression, adjustment disorder, behavioral disorder, brain tumor, malingering, substance abuse, encephalopathy, medication reaction, dementia, hypothyroidism, degenerative neurologic disorder, lupus.... This is not meant to be all-inclusive list EKG interpreted by me (3pts min.). @ -[As above] X-rays interpreted by me (1pt min.). @ -[None done] CT interpreted by me (1pt min.). @ -[None done] U/S interpreted by me (1pt. min.). @ -[None done] What testing was considered but not performed or refused? (CT, X-rays, U/S, labs)? Why? @ -[None] What meds were considered but not given or refused? Why? @ -[None] Did you discuss the management of the patient with other professionals (professionals i.e. , PA, LOGGING RAFTER LABORER, lab, RT, psych nurse, social welfare research worker, foil wrapper, teacher, chief operating officer, foster care case manager)? Give summary @ -[Case discussed with EPS personnel Was smoking cessation discussed for >3mins.? @ -[No] Was critical care preformed (if so, how long)? @ -[No] Were there social determinants of health that impacted care today? How? (Homelessness, low income, unemployed, alcoholism, drug addiction, transportation, low edu. Level, literacy, decrease access to med. care, shelter, rehab)? @ -[No] Was there de-escalation of care discussed even if they declined (Discuss DNR or withdrawal of care, Hospice)? DNR status @ -[No] What co-morbidities impacted this encounter? (DM, HTN, Smoking, COPD, CAD, Cancer, CVA, ARF, Chemo, Hep., AIDS, mental health diagnosis, sleep apnea, morbid obesity)? @ -[None] Was patient admitted / discharged? Hospital course, mention meds given and route, prescriptions, significant lab abnormalities, going to OR and other pertinent info. @ -[Patient is seen and evaluated, and then evaluated by EPS. They staff the case with psychiatry and patient transferred to have inpatient psychiatric care Undiagnosed new problem with uncertain prognosis? @ -[No] Drug Therapy requiring intensive monitoring for toxicity (Heparin, Nitro, Insulin, Cardizem)? @ -[No] Were any procedures done? @ -[No] Diagnosis/symptom? @ -[Acute suicidal ideation Acute exacerbation of chronic mood disorder Acute, or Chronic, or Acute on Chronic? @ -[Acute Uncomplicated (without systemic symptoms) or Complicated (systemic symptoms)? @ -[default] Side effects of treatment? @ -[No] Exacerbation, Progression, or Severe Exacerbation? @ -[Exacerbation Poses a threat to life or bodily function? How? (Chest pain, [place], [place], pneumonia, PE, COPD, DKA, ARF, appy, cholecystitis, CVA, Diverticulitis, Homicidal, Suicidal, threat to staff... and all critical care pts) @ -[Yes, untreated suicidal ideation may progress to suicide attempt/completion - Lab Data Result diagrams: 08/17/23 10:13 08/17/23 10:13 Lab Results 08/17/23 08/17/23 08/17/23 Range/Units 10:13 10:13 10:13 WBC 10.8 H (3.8-10.6) k/uL RBC 4.03 L (4.30-5.90) m/uL Hgb 13.8 (13.0-17.5) gm/dL Hct 40.0 (39.0-53.0) % MCV 99.4 (80.0-100.0) fL MCH 34.2 (25.0-35.0) pg MCHC 34.4 (31.0-37.0) g/dL RDW 13.0 (11.5-15.5) % Plt Count 292 (150-450) k/uL MPV 7.2 Neutrophils % 78 % Lymphocytes % 15 % Monocytes % 5 % Eosinophils % 1 % Basophils % 0 % Neutrophils # 8.3 H (1.3-7.7) k/uL Lymphocytes # 1.6 (1.0-4.8) k/uL Monocytes # 0.5 (0-1.0) k/uL Eosinophils # 0.1 (0-0.7) k/uL Basophils # 0.0 (0-0.2) k/uL Sodium 137 (137-145) mmol/L Potassium 4.1 (3.5-5.1) mmol/L Chloride 105 (98-107) mmol/L Carbon Dioxide 22 (22-30) mmol/L Anion Gap 10 mmol/L BUN 11 (9-20) mg/dL Creatinine 0.84 (0.66-1.25) mg/dL Est GFR (CKD-EPI)AfAm >90 (>60 ml/min/1.73 sqM) Est GFR (CKD-EPI)NonAf >90 (>60 ml/min/1.73 sqM) Glucose 94 (74-99) mg/dL Calcium 9.0 (8.4-10.2) mg/dL Urine Opiates Screen Not Detected (NotDetected) Ur Oxycodone Screen Not Detected (NotDetected) Urine Methadone Screen Not Detected (NotDetected) Ur Propoxyphene Screen Not Detected (NotDetected) Ur Barbiturates Screen Not Detected (NotDetected) U Tricyclic Antidepress Not Detected (NotDetected) Ur Phencyclidine Scrn Not Detected (NotDetected) Ur Amphetamines Screen Detected H (NotDetected) U Methamphetamines Scrn Detected H (NotDetected) U Benzodiazepines Scrn Not Detected (NotDetected) Urine Cocaine Screen Not Detected (NotDetected) U Marijuana (THC) Screen Detected H (NotDetected) Coronavirus (PCR) (Not Detectd) 08/17/23 Range/Units 10:13 WBC (3.8-10.6) k/uL RBC (4.30-5.90) m/uL Hgb (13.0-17.5) gm/dL Hct (39.0-53.0) % MCV (80.0-100.0) fL MCH (25.0-35.0) pg MCHC (31.0-37.0) g/dL RDW (11.5-15.5) % Plt Count (150-450) k/uL MPV Neutrophils % % Lymphocytes % % Monocytes % % Eosinophils % % Basophils % % Neutrophils # (1.3-7.7) k/uL Lymphocytes # (1.0-4.8) k/uL Monocytes # (0-1.0) k/uL Eosinophils # (0-0.7) k/uL Basophils # (0-0.2) k/uL Sodium (137-145) mmol/L Potassium (3.5-5.1) mmol/L Chloride (98-107) mmol/L Carbon Dioxide (22-30) mmol/L Anion Gap mmol/L BUN (9-20) mg/dL Creatinine (0.66-1.25) mg/dL Est GFR (CKD-EPI)AfAm (>60 ml/min/1.73 sqM) Est GFR (CKD-EPI)NonAf (>60 ml/min/1.73 sqM) Glucose (74-99) mg/dL Calcium (8.4-10.2) mg/dL Urine Opiates Screen (NotDetected) Ur Oxycodone Screen (NotDetected) Urine Methadone Screen (NotDetected) Ur Propoxyphene Screen (NotDetected) Ur Barbiturates Screen (NotDetected) U Tricyclic Antidepress (NotDetected) Ur Phencyclidine Scrn (NotDetected) Ur Amphetamines Screen (NotDetected) U Methamphetamines Scrn (NotDetected) U Benzodiazepines Scrn (NotDetected) Urine Cocaine Screen (NotDetected) U Marijuana (THC) Screen (NotDetected) Coronavirus (PCR) Not Detected (Not Detectd) Disposition Clinical Impression: Suicidal ideation Disposition: TRANSFER TO PSYCH HOSP/UNIT Condition: Fair Is patient prescribed a controlled substance at d/c from ED?: No Referrals: Monica Henry MD [Primary Care Provider] - 1-2 days
[2023-08-17 10:34] LABS: Basophils % (A) 0 %; Eosinophils # (A) 0.1 k/uL (0-0.7); Eosinophils % (A) 1 %; HGB 13.8 gm/dL (13.0-17.5); Lymphocytes # (A) 1.6 k/uL (1.0-4.8); Lymphocytes % (A) 15 %; MCH 34.2 pg (25.0-35.0); MCHC 34.4 g/dL (31.0-37.0); MCV 99.4 fL (80.0-100.0); Mean Platelet Volume 7.2; Monocytes # (A) 0.5 k/uL (0-1.0); Monocytes % (A) 5 %; Neutrophils # (A) 8.3 k/uL (1.3-7.7); Neutrophils % (A) 78 %; Platelet Count 292 k/uL (150-450); RBC 4.03 m/uL (4.30-5.90); WBC 10.8 k/uL (3.8-10.6)
[2023-08-17 10:50] LABS: African American GFR (CKD) >90 (>60 ml/min/1.73 sqM); Anion Gap 10 mmol/L; Blood Urea Nitrogen 11 mg/dL (9-20); Carbon Dioxide 22 mmol/L (22-30); Chloride 105 mmol/L (98-107); Glucose 94 mg/dL (74-99); Non-African American GFR(CKD) >90 (>60 ml/min/1.73 sqM); Potassium 4.1 mmol/L (3.5-5.1); Sodium 137 mmol/L (137-145)
[2023-08-17 19:07] LABS: Amphetamine Screen,Urine Detected (NotDetected); Barbiturate Screen,Urine Not Detected (NotDetected); Benzodiazepines Screen,Urine Not Detected (NotDetected); Cocaine Screen,Urine Not Detected (NotDetected); Methadone Screen, Urine Not Detected (NotDetected); Opiate Screen,Urine Not Detected (NotDetected); Oxycodone Screen, Urine Not Detected (NotDetected); Phencyclidine Screen,Urine Not Detected (NotDetected); Tricyclic Antidepressant,Urine Not Detected (NotDetected); Urn Cannabinoid Scrn Detected (NotDetected)
[2023-08-19 08:11] VITALS: RESP 18
[2023-08-19 14:23] VITALS: BP 132/76; PULSE 72; TEMP 98.5
== END 2023-08-19 14:22 ==
LOC: EC 05:04
DX: G92.8 Other toxic encephalopathy (principal); T50.905A Adverse effect of unspecified drugs, medicaments and biological substances, initial encounter; F19.19 Other psychoactive substance abuse with unspecified psychoactive substance-induced disorder; F43.23 Adjustment disorder with mixed anxiety and depressed mood; R45.851 Suicidal ideations; F17.200 Nicotine dependence, unspecified, uncomplicated; Z86.59 Personal history of other mental and behavioral disorders; Z20.822 Contact with and (suspected) exposure to COVID-19
CPT/HCPCS: 36415; 80048; 80306; 82075; 85025; 87635; 99285

== ENCOUNTER → 2023-10-24 | Outpatient (CLI) | payer OTHER ==
--- NOTE | 2023-10-24 09:50 | XR ---
EXAMINATION TYPE: XR sacrum coccyx DATE OF EXAM: 10/24/2023 COMPARISON: NONE HISTORY: Pain Three views are submitted. Sacrum is intact. SI joints are symmetric. Coccyx appears to be intact. Visualized pelvic structures intact. Degenerative change lower lumbar spine and sacral struts are intact. IMPRESSION: 1. Sacrum and SI joints are intact. 2. Degenerative disc disease lower lumbar spine..
--- NOTE | 2023-10-24 09:54 | XR ---
EXAM TYPE: LUMBAR SPINE X RAY SERIES COMPARISON: 08/10/2015 HISTORY: Pain TECHNIQUE: 4 views are submitted. FINDINGS: Alignment is anatomic. The pedicles are intact. The transverse processes are intact. There is retr olisthesis of L2-L3 and L3-L4. There is moderate degenerative disc disease at levels L2-L4 with moder ate to severe changes L5-S1. Moderate degenerative disc disease L5-S1. Hypertrophic spurring anterior ly at these levels with posterior spondylosis. Facet arthropathy L4-5 and L5-S1. Suspect foraminal en croachment at this level. IMPRESSION: 1. Multilevel moderate to severe degenerative disc disease most marked at L4-L5. Suspect foraminal en croachment.
== END | disposition home or self-care (01) ==
LOC: RADXRMAIN 08:54
PROVIDERS: ATTEND Family Medicine
DX: M51.36 Other intervertebral disc degeneration, lumbar region (principal); M53.3 Sacrococcygeal disorders, not elsewhere classified; G89.29 Other chronic pain
CPT/HCPCS: 72110; 72220

== ENCOUNTER → 2023-11-04 | Outpatient (CLI) | payer OTHER ==
--- NOTE | 2023-11-04 13:29 | MR ---
EXAMINATION TYPE: MR lumbar spine wo con DATE OF EXAM: 11/04/2023 COMPARISON: Radiograph 10/24/2023 HISTORY: 48-year-old male M54.41, Lower back pain, BLE radiculopathy. Injury 2 mos ago. TECHNIQUE: Multiplanar, multisequence images of the lumbar spine were acquired without IV contrast. FINDINGS: There is slight levoconvex curvature of the lumbar spine. Severe disc/endplate degenerative change to lockhart the right side of concavity at L3-L4. Associated extensive edematous Modic type I endplate jay e. There is some compensatory degenerative disc disease towards the left at L5-S1 with some edematous Modic type I endplate change or as well. There is underlying mild congenital spinal canal narrowing with AP canal dimension of 1.2 cm upper an d mid lumbar spine. Superimposed diffuse disc bulge at L3-L4 along with ligamentum flavum thickening contributes to sever e focal spinal canal stenosis. Overall moderate multilevel degenerative disc disease. Facet arthropathy mid to lower lumbar spine. Vertebral body heights are preserved period trace grade 1 retrolisthesis L2-L3. Remaining alignment i s maintained. No suspicious bone marrow replacement. Conus medullaris is normal. Disc bulges accentuate the mild spinal canal stenosis at L2-L3. Otherwise, no significant spinal carlos l stenosis seen. On the left, changes result in moderate neural foraminal stenosis at L3-L4 and mild to moderate at L4 -L5. Mild L2-L3 and L5-S1. On the left, changes result in moderate neural foraminal stenosis at L3-L4. Mild to moderate at L4-L5 . No prevertebral or paravertebral soft tissue abnormality seen. IMPRESSION: 1. Slight levoconvex curvature of the lumbar spine. Secondary advanced degenerative disc disease towa rds the right at L3-L4 with prominent edematous Modic type I endplate change. Lesser degree of edemat ous Modic type I change toward the left at L5-S1. 2. Moderate multilevel degenerative disc disease. Facet arthropathy. Trace grade 1 retrolisthesis L2- L3. 3. There is underlying mild congenital spinal canal stenosis. Superimposed large disc bulge at L3-L4 results in severe focal spinal canal stenosis. 4. Mild overall spinal canal stenosis L2-L3. 5. Variable neural foraminal stenoses as outlined above, moderate on both sides at L3-L4. Mild to mod erate on both sides at L4-L5.
== END | disposition home or self-care (01) ==
LOC: RADMRIMAIN 08:38
PROVIDERS: ATTEND Family Medicine
DX: M51.16 Intervertebral disc disorders with radiculopathy, lumbar region (principal); M47.26 Other spondylosis with radiculopathy, lumbar region; M43.16 Spondylolisthesis, lumbar region; M48.061 Spinal stenosis, lumbar region without neurogenic claudication; M99.73 Connective tissue and disc stenosis of intervertebral foramina of lumbar region; R60.0 Localized edema
CPT/HCPCS: 72148

== ENCOUNTER 2024-04-13 11:09 | Inpatient (IN) | payer MEDICAID, OTHER ==
--- NOTE | 2024-04-13 12:38 | ED ---
Psych HPI - General Chief Complaint: Psychiatric Symptoms Stated Complaint: mental health Time Seen by Provider: 04/13/24 11:40 Source: patient, RN notes reviewed Mode of arrival: ambulatory Limitations: no limitations - History of Present Illness Initial Comments: This is a 49-year-old male who presents to the emergency department for psychiatric evaluation. Patient reports a history of bipolar disorder and being without his medications for the last 2 weeks. Was previously taking Depakote and Seroquel. Family states that his mood has been very labile and changing very quickly. Patient reports suicidal ideations without a plan as well as homicidal ideations. Patient does not specify what the homicidal ideations are, but states that he is having very negative thoughts. Also reports feeling paranoid and manic. He is having problems with relationships with other family members. Reports problems with substance and alcohol abuse as well. Family is hoping for admission to [facility]. Complaint: suicidal ideation, feels depressed - Related Data Home Medications Medication Instructions Recorded Confirmed No Known Home Medications 04/13/24 04/13/24 Allergies Allergy/AdvReac Type Severity Reaction Status Date / Time No Known Allergies Allergy Verified 04/13/24 14:52 Review of Systems ROS Statement: Those systems with pertinent positive or pertinent negative responses have been documented in the HPI. ROS Other: All systems not noted in ROS Statement are negative. Past Medical History Past Medical History: No Reported History Additional Past Medical History / Comment(s): deg disc disease History of Any Multi-Drug Resistant Organisms: None Reported Past Surgical History: Orthopedic Surgery Additional Past Surgical History / Comment(s): left knee arthroscopy Past Anesthesia/Blood Transfusion Reactions: No Reported Reaction Past Psychological History: Anxiety, Bipolar, Depression Smoking Status: Current every day smoker Past Alcohol Use History: None Reported Past Drug Use History: Marijuana, Methamphetamine General Exam Limitations: no limitations General appearance: alert, in no apparent distress Head exam: Present: atraumatic, normocephalic, normal inspection Respiratory exam: Present: normal lung sounds bilaterally. Absent: respiratory distress, wheezes, rales, rhonchi, stridor Cardiovascular Exam: Present: regular rate, normal rhythm, normal heart sounds. Absent: systolic murmur, diastolic murmur, rubs, gallop, clicks Neurological exam: Present: alert, oriented X3, CN II-XII intact Psychiatric exam: Present: homicidal ideation, suicidal ideation Expanded Focused psych exam: Present: flight of ideas Skin exam: Present: warm, dry, intact, normal color. Absent: rash Course Vital Signs 04/13/24 11:11 Temperature 98.1 F Pulse Rate 105 H Respiratory 20 Rate Blood Pressure 123/86 O2 Sat by Pulse 98 Oximetry Medical Decision Making - Medical Decision Making This is a 49 year old male who presents to the emergency department for psychiatric evaluation. Was pt. sent in by a medical professional or institution? @ -No Did you speak to anyone other than the patient for history? @ -No Did you review nursing and triage notes? @ -Yes, and I agree, it is accurate with regards to the patient's symptoms. Were old charts reviewed? @ -No Differential Diagnosis? @ -Differential Mental Health: Depression, anxiety, bipolar, psychosis, schizophrenia, borderline personality, situational depression, adjustment disorder, behavioral disorder, brain tumor, malingering, substance abuse, encephalopathy, medication reaction, dementia, hypothyroidism, degenerative neurologic disorder, lupus.... This is not meant to be all-inclusive list EKG interpreted by me (3pts min.)? @ -Not obtained X-rays interpreted by me (1pt min.)? @ -Not obtained CT interpreted by me (1pt min.)? @ -Not obtained U/S interpreted by me (1pt. min.)? @ -Not obtained What testing was considered but not performed? (CT, X-rays, U/S, labs)? Why? @ -None What meds were considered but not given? Why? @ -None Did you discuss the management of the patient with other professionals? @ -Yes, Fercho with EPS who advised that the patient meets psychiatric admission criteria and will be admitted on a voluntary basis. Did you reconcile home meds? @ -No Was smoking cessation discussed for >3mins.? @ -I discussed smoking cessation for greater than 3 minutes. The risk of smoking were discussed with the patient including but not limited to risks of cancer, stroke, coronary artery disease and COPD. Also discussed with patient were multiple methods of quitting smoking. Lastly we discussed the financial cost of smoking. Was critical care preformed (if so, how long)? @ -No Were there social determinants of health that impacted care today? How? (H omelessness, low income, unemployed, alcoholism, drug addiction, transportation, low edu. Level, literacy, decrease access to med. care, residential, rehab)? @ -Alcoholism and drug addiction, likely contributing to his mental health problems. Was there de-escalation of care discussed even if they declined? (Discuss DNR or withdrawal of care, Hospice)? @ -No What co-morbidities impacted this encounter? (DM, HTN, Smoking, COPD, CAD, Cancer, CVA, Hep., AIDS, mental health diagnosis, sleep apnea, morbid obesity)? @ -Bipolar disorder, drug addiction, alcohol abuse, smoking Was patient admitted / discharged? @ -Admitted. Patient's BAT was 0.066, which is within legal limits and he was cleared for psychiatric evaluation. Urine drug screen positive for marijuana. EPS evaluated the patient and advised that he does meet admission criteria given active suicidal homicidal ideations and worsening bipolar symptoms. Patient will be admitted on a voluntary basis. Undiagnosed new problem with uncertain prognosis? @ -None Drug Therapy requiring intensive monitoring for toxicity (Heparin, Nitro, Insulin, Cardizem)? @ -None Were any procedures done? @ -None Diagnosis/symptom? @ -Suicidal ideations, homicidal ideations Acute, or Chronic, or Acute on Chronic? @ -Acute Uncomplicated (without systemic symptoms) or Complicated (systemic symptoms)? @ -Uncomplicated Side effects of treatment? @ -None Exacerbation, Progression, or Severe Exacerbation] @ -Not applicable Poses a threat to life or bodily function? @ -Yes, suicidal ideations can lead to This case was discussed in detail with the attending ED physician, Dr. Nieves. Presentation, findings, and treatment plan discussed in detail as well. - Lab Data Result diagrams: 04/14/24 08:03 04/14/24 08:03 Lab Results 04/13/24 04/13/24 Range/Units 13:45 14:52 Urine Color Colorless Urine Appearance Clear (Clear) Urine pH 5.5 (5.0-8.0) Ur Specific [place] 1.004 (1.001-1.035) Urine Protein Negative (Negative) Urine Glucose (UA) Negative (Negative) Urine Ketones Negative (Negative) Urine Blood Negative (Negative) Urine Nitrite Negative (Negative) Urine Bilirubin Negative (Negative) Urine Urobilinogen <2.0 (<2.0) mg/dL Ur Leukocyte Esterase Negative (Negative) Urine Opiates Screen Not Detected (NotDetected) Ur Oxycodone Screen Not Detected (NotDetected) Urine Methadone Screen Not Detected (NotDetected) Ur Barbiturates Screen Not Detected (NotDetected) U Tricyclic Antidepress Not Detected (NotDetected) Ur Phencyclidine Scrn Not Detected (NotDetected) Ur Amphetamines Screen Not Detected (NotDetected) U Methamphetamines Scrn Not Detected (NotDetected) U Benzodiazepines Scrn Not Detected (NotDetected) Urine Cocaine Screen Not Detected (NotDetected) U Marijuana (THC) Screen Detected H (NotDetected) SARS-CoV-2 (PCR) Not Detected (Not Detectd) Disposition Clinical Impression: Suicidal ideations, Homicidal ideation, Bipolar disorder with psychotic features Disposition: TRANSFER TO PSYCH HOSP/UNIT
[2024-04-13 14:10] LABS: Appearance,Urine Clear (Clear); Bilirubin,Urine Negative (Negative); Blood,Urine Negative (Negative); Color,Urine Colorless; Glucose,Urine (UA) Negative (Negative); Ketones,Urine Negative (Negative); Leukocyte Esterase,Urine Negative (Negative); Nitrite,Urine Negative (Negative); PH, Urine 5.5 (5.0-8.0); Protein,Urine Negative (Negative); Specific Gravity,Urine 1.004 (1.001-1.035); Urobilinogen,Urine <2.0 mg/dL (<2.0)
[2024-04-13 15:41] LABS: Amphetamine Screen,Urine Not Detected (NotDetected); Barbiturate Screen,Urine Not Detected (NotDetected); Benzodiazepines Screen,Urine Not Detected (NotDetected); Cocaine Screen,Urine Not Detected (NotDetected); Methadone Screen, Urine Not Detected (NotDetected); Opiate Screen,Urine Not Detected (NotDetected); Oxycodone Screen, Urine Not Detected (NotDetected); Phencyclidine Screen,Urine Not Detected (NotDetected); Tricyclic Antidepressant,Urine Not Detected (NotDetected); Urn Cannabinoid Scrn Detected (NotDetected)
[2024-04-13] MEDS ORDERED: haloperidoL 5 MG TAB PO PRN (20:08)
[2024-04-13] MEDS ORDERED: MAG HYDROX/AL HYDROX/SIMETH 355 ML BOTTLE PO PRN (20:08)
[2024-04-13] MEDS ORDERED: LORazepam 2 MG/ML INJ IM PRN (20:08)
[2024-04-13] MEDS ORDERED: HALOPERIDOL LACTATE 5 MG/ML 1 ML VIAL IM PRN (20:08)
[2024-04-13] MEDS ORDERED: MAGNESIUM HYDROXIDE 2,400 MG/30 ML CUP PO PRN (20:08)
[2024-04-13] MEDS ORDERED: LORazepam 1 MG TAB PO PRN ×3 (20:08→20:15)
[2024-04-13] MEDS ORDERED: IBUPROFEN 600 MG TAB PO PRN (20:08)
[2024-04-13] MEDS ORDERED: ACETAMINOPHEN TAB 325 MG TAB PO PRN (20:08)
[2024-04-14 07:08] VITALS: RESP 16
[2024-04-14 08:37] LABS: Basophils # (A) 0.1 k/uL (0-0.2); Basophils % (A) 1 %; Eosinophils # (A) 0.3 k/uL (0-0.7); Eosinophils % (A) 4 %; HCT 45.9 % (39.0-53.0); HGB 14.5 gm/dL (13.0-17.5); Lymphocytes # (A) 1.8 k/uL (1.0-4.8); Lymphocytes % (A) 31 %; MCH 32.6 pg (25.0-35.0); MCHC 31.7 g/dL (31.0-37.0); Macrocytosis Slight; Mean Platelet Volume 7.3; Monocytes # (A) 0.3 k/uL (0-1.0); Monocytes % (A) 6 %; Neutrophils # (A) 3.3 k/uL (1.3-7.7); Neutrophils % (A) 57 %; Platelet Count 300 k/uL (150-450); RBC 4.46 m/uL (4.30-5.90); RDW 13.2 % (11.5-15.5); WBC 5.9 k/uL (3.8-10.6)
[2024-04-14 08:59] LABS: ALT 26 U/L (4-49); AST 38 U/L (17-59); African American GFR (CKD) >90 (>60 ml/min/1.73 sqM); Albumin 4.1 g/dL (3.5-5.0); Alkaline Phosphatase 61 U/L (38-126); Anion Gap 3 mmol/L; Blood Urea Nitrogen 10 mg/dL (9-20); Calcium 9.8 mg/dL (8.4-10.2); Carbon Dioxide 23 mmol/L (22-30); Chloride 109 mmol/L (98-107); Glucose 105 mg/dL (74-99); Non-African American GFR(CKD) 84 (>60 ml/min/1.73 sqM); Potassium 4.5 mmol/L (3.5-5.1); Sodium 135 mmol/L (137-145); Total Bilirubin 0.9 mg/dL (0.2-1.3); Total Protein 6.2 g/dL (6.3-8.2)
[2024-04-14] MEDS: NICOTINE 14MG/24HR PATCH TRANSDERM SCH (09:30)
--- NOTE | 2024-04-14 12:26 | P.HP ---
Psychiatric H&P - . H&P Date: 04/14/24 History & Physical: IDENTIFYING DATA: Patient is a 49 year old man. HPI: Mr. 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 Per the ED note, he had been previously taking Depakote and Seroquel and his family reported that his mood has been labile and changing quickly at the time of presentation to the emergency department he also reported suicidal ideation without a plan in addition to homicidal ideation. Mr. Qureshi did not provide details regarding the homicidal thoughts but did say that they were very negative additionally he reported feeling paranoid and manic he described having problems with his family members and issues with substance use and alcohol abuse the family was hopeful that Mr. Qureshi will be admitted for inpatient psychiatric treatment. At the time of today's interview which occurred the morning after admission Mr. Qureshi endorsed that he had felt rather stable on his medication regimen for the last 6 months up until about 2-1/2 to 3 weeks ago when he discontinued his medication because he felt he was stable and did not need them. He noted that it was difficult to take pills on a daily basis and as such he stopped the Depakote 500 mg twice daily and Seroquel 300 mg which he had been taking on an as-needed basis. During this time without medication he describes his mood as " agitated and angry" and contrary to how he would like to engage with those around him or treat his family members. He describes feeling irritable and noticing that his sleep had been impaired. Mr. Qureshi denies having difficulty with focus or endorsing grandiose ideas. He denies experiencing rapid thoughts that were beyond his control, nor did he describe an increase in goal-directed activities during this time. He denies having felt depressed. Appetite is also stable. He does feel at times his energy is "way too much," and he does occasionally feel anxious and worried about getting his life on track. He denies excessive worry that is beyond his control nor does he experience panic attacks. In regards to other symptoms, Mr. Qureshi denies experiencing nightmares or flashbacks related to past traumas. He also denies experiencing auditory or visual hallucinations with the exception of times that he was using methamphetamine. Today Mr. Qureshi denies suicidal ideation. He does report experiencing homicidal ideation "sometimes" but this was very nonspecific and not directed towards anyone in particular but something that he feels at times when he gets really angry he notes that he does not want to harm anyone and does not want to have these thoughts and recognizes that stability in regards to his mood and emotions are helpful in keeping these thoughts at bay. When asked more about his experiences with treatment Mr. Qureshi notes that while the Depakote and Seroquel combination were helpful for him he no longer wants to take their Depakote because of concerns about impacting his liver. He felt that his liver felt "weird and different" over the last few weeks which is what prompted him to discontinue the medication and does know that this discomfort seems to be worse when he drinks coffee but is not associated with eating food nor has he noticed any pain in his abdomen. He is interested in trying a long-acting injection because he feels this will help decrease the daily burden of taking medication and help him stay on track even when he gets thoughts that he would rather be off medications he reports his last visit with the [facility] was about 1-1/2 months ago. PAST PSYCHIATRIC HISTORY: Patient has a history of bipolar 1 disorder, unspecified trauma/stressor-related disorder, amphetamine type substance use disorder, and alcohol use disorder mild in sustained remission. Patient is not presently on any psychiatric medication however he had recently been on Depakote 500 mg twice daily and Seroquel 300 mg taken on an as-needed basis upon additional review of his records he has also been treated with olanzapine 5 mg 3 times a day this was transitioned in February 2023 to the olanzapine and fluoxetine combination pill which was discontinued in October 2023. Prior to this he was treated with Abilify max dose was 15 mg and Mr. Qureshi does feel that this medication was helpful for him in regards to mood stability in addition he has had trials of doxepin 3 mg at bedtime and was also on Remeron 15 mg at bedtime for sleep in late 2021. Mr. Qureshi has had multiple prior psychiatric admissions most recently he was admitted to [facility] in August 2023 had 2 ER visits to this hospital in July and August 2023 and 3 prior psychiatric admissions in October 2021, January 2022, and September 2022 to this hospital. Mr. Qureshi was last seen at the [facility] on December 17, 2023. Per review of that note he declined to continue his medications at that visit as he felt he no longer wanted to be on medication. Though per khurram steve report he did resume them in the interim until several weeks ago prior to this admission. Patient denies any history of suicide attempts in the past. PMH: Denies chronic medical problems. CHEMICAL DEPENDENCY HISTORY: At present Mr. Qureshi uses marijuana on a daily basis and has been a long-term marijuana user. He has been smoking about 1 pack/day and using a vape until recently. He reports rare alcohol use but did have a drink yesterday prior to coming to the emergency department. He describes his longest sober. As around 6 months excluding periods during which she was incarcerated. He denies any use of prescribed prescription medications that are not prescribed to him. Historically his primary drug of choice was methamphetamine however he denies any recent use and feels he has been doing well lately in this regard. Mr. Qureshi has used cocaine in the past though this is not recent. FAMILY PSYCHIATRIC/SUBSTANCE USE HISTORY: Patient has an extensive family history of psychiatric conditions including several cousins he lost a cousin to suicide 3 years ago and suspects his father may have some undiagnosed mental health concerns. SOCIAL HISTORY: Completed a GED and Or[employer] certificate. Presently resides with his (together 18 years), [id number], and step-son (age 30). He has 1 biological son with whom he has not had a relationship and 3 additional adult stepchildren who do not reside in his home at present. Mr. Qureshi currently works on a part-time an intermittent basis for [employer] a few times per week he wishes this was more consistent. He has a history of incarceration and per review of records has spent a total of 23 years incarcerated for various offenses Allergies Allergy/AdvReac Type Severity Reaction Status Date / Time No Known Allergies Allergy Verified 04/13/24 14:52 Vital Signs Temp 98.2 F 04/14/24 06:35 Pulse 65 04/14/24 06:35 Resp 16 04/14/24 06:35 BP 118/62 04/14/24 06:35 Pulse Ox 100 04/14/24 06:35 FiO2 Intake & Output 04/13/24 04/14/24 04/14/24 18:59 06:59 18:59 Weight 74.843 kg 71.724 kg Laboratory Last Values WBC 5.9 k/uL (3.8-10.6) 04/14/24 08:03 RBC 4.46 m/uL (4.30-5.90) 04/14/24 08:03 Hgb 14.5 gm/dL (13.0-17.5) 04/14/24 08:03 Hct 45.9 % (39.0-53.0) 04/14/24 08:03 MCV 103.0 fL (80.0-100.0) H 04/14/24 08:03 MCH 32.6 pg (25.0-35.0) 04/14/24 08:03 MCHC 31.7 g/dL (31.0-37.0) 04/14/24 08:03 RDW 13.2 % (11.5-15.5) 04/14/24 08:03 Plt Count 300 k/uL (150-450) 04/14/24 08:03 MPV 7.3 04/14/24 08:03 Neutrophils % 57 % 04/14/24 08:03 Lymphocytes % 31 % 04/14/24 08:03 Monocytes % 6 % 04/14/24 08:03 Eosinophils % 4 % 04/14/24 08:03 Basophils % 1 % 04/14/24 08:03 Neutrophils # 3.3 k/uL (1.3-7.7) 04/14/24 08:03 Lymphocytes # 1.8 k/uL (1.0-4.8) 04/14/24 08:03 Monocytes # 0.3 k/uL (0-1.0) 04/14/24 08:03 Eosinophils # 0.3 k/uL (0-0.7) 04/14/24 08:03 Basophils # 0.1 k/uL (0-0.2) 04/14/24 08:03 Macrocytosis Slight 04/14/24 08:03 Sodium 135 mmol/L (137-145) L 04/14/24 08:03 Potassium 4.5 mmol/L (3.5-5.1) 04/14/24 08:03 Chloride 109 mmol/L (98-107) H 04/14/24 08:03 Carbon Dioxide 23 mmol/L (22-30) 04/14/24 08:03 Anion Gap 3 mmol/L 04/14/24 08:03 BUN 10 mg/dL (9-20) 04/14/24 08:03 Creatinine 1.04 mg/dL (0.66-1.25) 04/14/24 08:03 Est GFR (CKD-EPI)AfAm >90 (>60 ml/min/1.73 sqM) 04/14/24 08:03 Est GFR (CKD-EPI)NonAf 84 (>60 ml/min/1.73 sqM) 04/14/24 08:03 Glucose 105 mg/dL (74-99) H 04/14/24 08:03 Calcium 9.8 mg/dL (8.4-10.2) 04/14/24 08:03 Total Bilirubin 0.9 mg/dL (0.2-1.3) 04/14/24 08:03 AST 38 U/L (17-59) 04/14/24 08:03 ALT 26 U/L (4-49) 04/14/24 08:03 Alkaline Phosphatase 61 U/L (38-126) 04/14/24 08:03 Total Protein 6.2 g/dL (6.3-8.2) L 04/14/24 08:03 Albumin 4.1 g/dL (3.5-5.0) 04/14/24 08:03 TSH 1.230 mIU/L (0.465-4.680) 04/14/24 08:03 Urine Color Colorless 04/13/24 13:45 Urine Appearance Clear (Clear) 04/13/24 13:45 Urine pH 5.5 (5.0-8.0) 04/13/24 13:45 Ur Specific [place] 1.004 (1.001-1.035) 04/13/24 13:45 Urine Protein Negative (Negative) 04/13/24 13:45 Urine Glucose (UA) Negative (Negative) 04/13/24 13:45 Urine Ketones Negative (Negative) 04/13/24 13:45 Urine Blood Negative (Negative) 04/13/24 13:45 Urine Nitrite Negative (Negative) 04/13/24 13:45 Urine Bilirubin Negative (Negative) 04/13/24 13:45 Urine Urobilinogen <2.0 mg/dL (<2.0) 04/13/24 13:45 Ur Leukocyte Esterase Negative (Negative) 04/13/24 13:45 Urine Opiates Screen Not Detected (NotDetected) 04/13/24 13:45 Ur Oxycodone Screen Not Detected (NotDetected) 04/13/24 13:45 Urine Methadone Screen Not Detected (NotDetected) 04/13/24 13:45 Ur Barbiturates Screen Not Detected (NotDetected) 04/13/24 13:45 U Tricyclic Antidepress Not Detected (NotDetected) 04/13/24 13:45 Ur Phencyclidine Scrn Not Detected (NotDetected) 04/13/24 13:45 Ur Amphetamines Screen Not Detected (NotDetected) 04/13/24 13:45 U Methamphetamines Scrn Not Detected (NotDetected) 04/13/24 13:45 U Benzodiazepines Scrn Not Detected (NotDetected) 04/13/24 13:45 Urine Cocaine Screen Not Detected (NotDetected) 04/13/24 13:45 U Marijuana (THC) Screen Detected (NotDetected) H 04/13/24 13:45 SARS-CoV-2 (PCR) Not Detected (Not Detectd) 04/13/24 14:52 MENTAL STATUS EXAM: General Appearance: Patient appears to be stated age is alert, directable, and attempts to cooperate. Patient appears to have appropriate hygiene and grooming. Behavior: Patient is seated without any agitated behavior. Mild psychomotor agitation, seen walking the halls on the unit. Speech: Patient's speech is fluent and nonpressured. Normal rate, rhythm, tone, and volume. Mood/Affect: Patient reports their mood is "okay", affect is congruent and euthymic. Suicidality/Homicidality: Patient denies having any homicidal ideation intent or plan. Denies any suicidal ideations, intent, or plan Perceptions: Patient denies any visual hallucinations and denies any auditory hallucinations. Though content/process: There is no evidence of any delusional thought content and thought process is linear and goal-directed. Memory and concentration: AOX3, grossly intact for the purposes of this session. Able to recall recent and remote events consistent with available history. Insight: Fair Judgment: Questionable STRENGTHS/WEAKNESSES: Strength is that patient is resilient. Weakness is that patient has questionable judgment and struggles to adhere to treatment INTELLECT: Average IMPRESSIONS: Mr. Milton Qureshi is a 49 year old man with a history of bipolar 1 disorder and substance use disorders who presents for admission after he discontinued his home medications and noticed an increase in mood symptoms. We reviewed his laboratory work today and provided some reassurance that his liver function is p resently normal. Additionally, we discussed his past medication trials and he felt Abilify was helpful in promoting mood stability. As an added bonus this medication does come in along acting injectable form which she would like to transition to in the future. He remains focused on following up with [facility] on an outpatient basis and is future oriented in regards to getting his life on track. - Bipolar I disorder, in partial remission, presently euthymic - Unspecified trauma/stressor-related disorder - Amphetamine-type substance use disorder - History of mild alcohol use disorder PLAN: -Patient is admitted under voluntary status to [facility] for stabilization of psychiatric symptoms and safety. Patient has signed adult voluntary form and medication consent and is placed in patient's chart. -Medications : -Ativan and Haldol PRN for agitation/aggression - Upon discussion with patient and review of records, will plan to start Abilify 10 mg daily today with future plans for patient to transition to TRIANA per his preference to support treatment adherence -Patient was informed of the risks, benefits and side effects of the medication and patient verbally consented to taking the medications. Patient signed med consent form and was placed in chart. -Internal Medicine consult to perform medical evaluation and physical. -NRT -nicotine patch offered but patient declined - on board for discharge planning. Encourage patient to participate in groups to work on coping skills. 04/14/24 12:11
[2024-04-14] MEDS: ARIPiprazole 10 MG TAB PO SCH (12:38)
--- NOTE | 2024-04-14 14:47 | P.MDCNMH ---
History of Present Illness H&P Date: 04/14/24 This is a pleasant 49-year-old male with significant mental health history and has been without medications for the last 2 weeks having suicidal and homicidal ideations. Patient does have extensive history of substance and alcohol abuse and family hoping for admission to [facility]. Labs reviewed and within normal limits with a creatinine of 1.04. Urine drug screen was positive for THC. COVID was n egative. Patient follows with Dr. Juan Antonio Wall in the outpatient setting with a past medical history of degenerative disc disease, anxiety, bipolar depression, continued ongoing nicotine dependence and marijuana use. Patient has been without medications for 2 weeks. Patient reports he follows with [facility] outpatient for his psychiatric medications. Patient also reported on exam that he felt he was improved and did not need medications and took himself off of them but has been feeling increasing mood instability since then. Patient has been up and walking the halls and has been compliant with medications and treatment plan. Patient has been admitted to [facility]. Other vital signs stable. On exam patient denies any chest pain or shortness of breath. Patient has been afebrile. REVIEW OF SYSTEMS: CONSTITUTIONAL: No fever, no malaise, no fatigue. HEENT: No recent visual problems or hearing problems. Denied any sore throat. CARDIOVASCULAR: No chest pain, orthopnea, PND, no palpitations, no syncope. PULMONARY: No shortness of breath, no cough, no hemoptysis. GASTROINTESTINAL: No diarrhea, no nausea, no vomiting, no abdominal pain. NEUROLOGICAL: No headaches, no weakness, no numbness. HEMATOLOGICAL: Denies any bleeding or petechiae. GENITOURINARY: Denies any burning micturition, frequency, or urgency. MUSCULOSKELETAL/RHEUMATOLOGICAL: Denies any joint pain, swelling, or any muscle pain. ENDOCRINE: Denies any polyuria or polydipsia. The rest of the 14-point review of systems is negative. PHYSICAL EXAMINATION: GENERAL: The patient is alert and oriented x3, . Well developed, well nourished. Thin built -Irish male HEENT: Pupils are round and equally reacting to light. EOMI. No scleral icterus. No conjunctival pallor. Normocephalic, atraumatic. No pharyngeal erythema. No thyromegaly. CARDIOVASCULAR: S1 and S2 present. No murmurs, rubs, or gallops. PULMONARY: Chest is clear to auscultation, no wheezing or crackles. ABDOMEN: Soft, nontender, nondistended, normoactive bowel sounds. No palpable organomegaly. MUSCULOSKELETAL: No joint swelling or deformity. EXTREMITIES: No cyanosis, clubbing, or pedal edema. NEUROLOGICAL: Gross neurological examination did not reveal any focal deficits. SKIN: No rashes. Assessment: Depression with suicidal ideation Noncompliance with medications and follow-up History of significant alcohol abuse THC use Continued ongoing nicotine dependence History of anxiety/bipolar/PTSD/depression History of degenerative disc disease Full code Plan: Patient was voluntarily admitted to [facility] for further psychiatric evaluation Medications reviewed although there is no reported home medications being taken currently. Per ER documentation, patient has not been taking his scheduled medications from [facility] for at least 2 weeks. Patient reports he felt well and felt he did not need medications although experiencing increased mood swings and irritability. Patient reports he is here to get his medications adjusted and tight outpatient follow-up. labs reviewed and within normal limits Patient has been instructed to follow-up with primary care provider on discharge as well as [facility] outpatient thank you kindly for this consultation The impression and plan of care has been dictated by Irma Delacruz, Nurse Practitioner as directed. Dr. Kelly MD I have performed a history and examination and MDM of this patient, discussed the same with the dictator, and agree with the dictator's assessment and plan as written ,documented as a scribe. Based on total visit time, I have performed more than 50% of the visit. Past Medical History Past Medical History: No Reported History Additional Past Medical History / Comment(s): deg disc disease History of Any Multi-Drug Resistant Organisms: None Reported Past Surgical History: Orthopedic Surgery Additional Past Surgical History / Comment(s): left knee arthroscopy Past Anesthesia/Blood Transfusion Reactions: No Reported Reaction Past Psychological History: Anxiety, Bipolar, Depression Smoking Status: Current every day smoker Past Alcohol Use History: Rare Additional Past Alcohol Use History / Comment(s): pt reports rarely drinking etoh except the past couple of days when he was drinking daily "trying to regulate my mood, but it made me aggressiver so I stopped." Past Drug Use History: Marijuana Medications and Allergies Home Medications Medication Instructions Recorded Confirmed Type No Known Home Medications 04/13/24 04/13/24 History Allergies Allergy/AdvReac Type Severity Reaction Status Date / Time No Known Allergies Allergy Verified 04/13/24 14:52 Physical Exam Vitals: Vital Signs Temp Pulse Pulse Resp BP BP Pulse Ox 04/14/24 06:35 98.2 F 65 16 118/62 100 04/13/24 21:30 97.3 F L 74 22 118/74 97 04/13/24 11:11 98.1 F 105 H 20 123/86 98 Intake and Output 04/13/24 04/14/24 04/14/24 22:59 06:59 14:59 Other: Weight 71.724 kg Cranial Nerve Examination - Cranial Nerves Cranial Nerve I- Olfactory: Intact Cranial Nerve II- Optic: Intact Cranial Nerve III- Oculomotor: Intact Cranial Nerve IV- Trochlear: Intact Cranial Nerve V- Trigeminal: Intact Cranial Nerve - Abducens: Intact Cranial Nerve VII- Facial: Intact Cranial Nerve VIII- Auditory: Intact Cranial Nerve IX- Glossopharyngeal: Intact Cranial Nerve X- Vagus: Intact Cranial Nerve XI- Accessory: Intact Cranial Nerve XII- Hypoglossal: Intact Results CBC & Chem 7: 04/14/24 08:03 04/14/24 08:03 Labs: Abnormal Lab Results - Last 24 Hours (Table) 04/13/24 04/14/24 04/14/24 Range/Units 13:45 08:03 08:03 MCV 103.0 H (80.0-100.0) fL Sodium 135 L (137-145) mmol/L Chloride 109 H (98-107) mmol/L Glucose 105 H (74-99) mg/dL Total Protein 6.2 L (6.3-8.2) g/dL U Marijuana (THC) Screen Detected H (NotDetected) Assessment and Plan Time with Patient: Less than 30
[2024-04-14 17:40] LABS: Chol/HDL Ratio 3.12 Ratio; LDL Cholesterol,Calculated 128.3 mg/dL (0.0-131.0)
--- NOTE | 2024-04-15 11:51 | P.PN ---
Progress Note - Text Progress Note Date: 04/15/24 Interval History: Patient was seen doing laps in the enamorado and was agreeable to speak with curriculum writer in the office. [He reports feeling "hopeful" and more balanced today. He notices that he is not "snappy "with others and is able to recognize it when he starts to feel more irritable and do things to redirect. He notes that he has been talking to his every day since he was admitted to the hospital and she shared that he seems to be doing better. He has found the start of Abilify helpful in promoting mood stability and is on board with the plan to continue this and transition to a long-acting injection. He denies having any abdominal pain; his stomach feels more "calm." He's been eating and sleeping without issues. At this time patient denies any suicidal or homicidal ideations, intent or plan. Patient denies any auditory, visual hallucinations and denies any paranoia or delusions. Patient denies any side effects from the medications and has been compliant with meds. Mental Status Exam: General Appearance: Patient appears to be stated age is alert, directable, and cooperative. Behavior: Patient is calmly seated without any agitated behavior. Speech: Patient's speech is fluent and nonpressured. Mood/Affect: Mood is "hopeful", affect is congruent and euthymic. Suicidality/Homicidality: Patient denies having any suicidal or homicidal ideation intent or plan. Perceptions: Patient denies any visual hallucinations and denies any auditory hallucinations Though content/process: There is no evidence of any delusional thought content and thought process is linear and goal-directed. Memory and concentration: AOX3, grossly intact for the purposes of this session Judgment and insight: Reasonable, improving ASSESSMENT: Mr. Milton Qureshi is a 49 year old man with a history of bipolar 1 disorder and substance use disorders who presents for admission after he discontinued his home medications and noticed an increase in mood symptoms. He has started Abilify which he was on in the past and feels that his mood is stabilizing and improving. He has emerging insight about the need to continue his medications on an outpatient basis and we discussed the plan to ultimately transition to a long-acting injection to help support his adherence. We also discussed his tota l cholesterol and HDL which were both elevated on his admission labs. Abdominal discomfort has resolved; no RUQ pain. Mr. Qureshi denies a history of IV drug use; explained that this would elevate his risk for hepatitis, but in the absence of lab abnormalities and IVDU history we do not need to pursue further. Encouraged him to follow-up with his primary care doctor after discharge as there has been a trend of persistent elevation and it may be time for pharmacologic treatment. Additionally he remains focused on following up with [facility] on an outpatient basis and is future oriented in regards to getting his life on track. - Bipolar I disorder, in partial remission, presently euthymic - Unspecified trauma/stressor-related disorder - Amphetamine-type substance use disorder - History of mild alcohol use disorder PLAN: -Patient is admitted under voluntary status to [facility] for stabilization of psychiatric symptoms and safety. Patient has signed adult voluntary form and medication consent and is placed in patient's chart. -Medications : - Continue Abilify 10 mg daily for mood stabilization with plans to transition to TRIANA post-discharge; he will require 14 days of oral coverage after injection to maintain therapeutic serum levels -Ativan and Haldol PRN for agitation/aggression -Internal Medicine consult completed -NRT -nicotine patch offered but patient declined - on board for discharge planning. Encourage patient to participate in groups to work on coping skills. -Tentative plan to discharge tomorrow if things continue to go well
[2024-04-16 07:01] VITALS: BP 130/82; PULSE 72; TEMP 97.8
--- NOTE | 2024-04-16 10:57 | P.DS ---
Providers Date of admission: 04/13/24 19:55 Attending physician: Mike Shaikh MD Consults: 04/13/24 20:15 Consult Physician Routine Consulting Provider: David Wall Consult Reason/Comments: H&P and medical Do you want consulting provider notified?: Yes Primary care physician: Monica Henry - Discharge Diagnosis(es) (1) Cannabis use disorder, mild, abuse Current Visit: No Status: Chronic Priority: Medium (2) Bipolar disorder Current Visit: No Status: Chronic Priority: High Hospital Course: Admission HPI: Admission note was completed by Dr. Venkata Ayala "Mr. Milton qureshi is a 49-year-old man with a history of bipolar 1 disorder, unspecified trauma stressor related disorder, amphetamine use disorder, and mild alcohol use disorder in sustained remission who presented to the emergency department on 04/13/2024 at the urging of his family after noting an increase in irritability and agitation over the last 2 weeks. Per the ED note, he had been previously taking Depakote and Seroquel and his family reported that his mood has been labile and changing quickly at the time of presentation to the emergency department he also reported suicidal ideation without a plan in addition to homicidal ideation. Mr. Qureshi did not provide details regarding the homicidal thoughts but did say that they were very negative additionally he reported feeling paranoid and manic he described having problems with his family members and issues with substance use and alcohol abuse the family was hopeful that Mr. Qureshi will be admitted for inpatient psychiatric treatment. At the time of today's interview which occurred the morning after admission Mr. Qureshi endorsed that he had felt rather stable on his medication regimen for the last 6 months up until about 2-1/2 to 3 weeks ago when he discontinued his medication because he felt he was stable and did not need them. He noted that it was difficult to take pills on a daily basis and as such he stopped the Depakote 500 mg twice daily and Seroquel 300 mg which he had been taking on an as-needed basis. During this time without medication he describes his mood as "agitated and angry" and contrary to how he would like to engage with those jim und him or treat his family members. He describes feeling irritable and noticing that his sleep had been impaired. Mr. Qureshi denies having difficulty with focus or endorsing grandiose ideas. He denies experiencing rapid thoughts that were beyond his control, nor did he describe an increase in goal-directed activities during this time. He denies having felt depressed. Appetite is also stable. He does feel at times his energy is "way too much," and he does occasionally feel anxious and worried about getting his life on track. He denies excessive worry that is beyond his control nor does he experience panic attacks. In regards to other symptoms, Mr. Qureshi denies experiencing nightmares or flashbacks related to past traumas. He also denies experiencing auditory or visual hallucinations with the exception of times that he was using methamphetamine. Today Mr. Qureshi denies suicidal ideation. He does report experiencing homicidal ideation "sometimes" but this was very nonspecific and not directed towards anyone in particular but something that he feels at times when he gets really angry he notes that he does not want to harm anyone and does not want to have these thoughts and recognizes that stability in regards to his mood and emotions are helpful in keeping these thoughts at bay. When asked more about his experiences with treatment Mr. Qureshi notes that while the Depakote and Seroquel combination were helpful for him he no longer wants to take their Depakote because of concerns about impacting his liver. He felt that his liver felt "weird and different" over the last few weeks which is what prompted him to discontinue the medication and does know that this discomfort seems to be worse when he drinks coffee but is not associated with eating food nor has he noticed any pain in his abdomen. He is interested in trying a long-acting injection because he feels this will help decrease the daily burden of taking medication and help him stay on track even when he gets thoughts that he would rather be off medications he reports his last visit with the [facility] was about 1-1/2 months ago." Hospital course: Upon admission to the unit patient was directable and agreeable to commence treatment and signed adult voluntary form. Patient got along well with other patients on the unit and followed unit protocol. Patient was compliant with the medications and denied any side effects throughout hospital course. Patient was started on Abilify 10 mg daily as he expressed a desire to transition to a long- acting injection to help support his medication adherence. He had previously been on Abilify and found the medication helpful for mood stability. Patient spoke of his stressors and engaged in therapy both group and individual. He expressed emerging insight about the impact of medication non-adherence on his ability to maintain his relationships and be the person he wants to be. Patient was also seen by medical team for history and physical exam. Throughout the course of the hospitalization patient gradually improved with regards to mood stability, sleep and became more future oriented with improved insight and judgment. On the day of discharge patient denied any suicidal or homicidal ideations intent or plan denied any auditory or visual hallucinations. Patient endorsed wanting to live for their health and family. The patient denied any access to guns or weapons. Patient denied any paranoia and did not endorse any delusions. Patient does have a significant history of substance abuse and was counseled on abstaining from all substances including alcohol and marijuana. Patient was also counseled on the medications and need for regular compliance and was encouraged to follow-up with their outpatient appointment for mental health and also for primary care. Mental status exam: General Appearance: Patient appears to be stated age is alert, pleasant, and cooperative. Patient is in no acute distress and has improved hygiene and grooming Behavior: Patient is calmly seated without any agitated behavior. Speech: Patient's speech is fluent and nonpressured. Mood/Affect: Patient reports their mood is "blessed", affect is congruent and euthymic. Suicidality/Homicidality: Patient denies having any suicidal or homicidal ideation intent or plan. Perceptions: Patient denies any auditory or visual hallucinations. Though content/process: There is no evidence of any delusional thought content and thought process is linear and goal-directed. More future oriented Memory and concentration: AOX3, grossly intact for the purposes of this session. Intact recent and remote recall. Judgment and insight: Chronically poor, however has improved with guarded prognosis Impression: Bipolar 1 disorder, presently euthymic Unspecified trauma/stressor-related disorder Cannabis use History of stimulant use disorder, amphetamine type, presently in early remission Plan: -Continue with discharge today as patient has improved and stabilized psychi atrically and is not currently an imminent threat to themself and/or others. Patient will remain at chronically elevated risk for harm to self and/or others if medication non-adherence occurs and return to prior impulsivity and substance abuse. -Continue medications: Abilify 10 mg daily with plan to transition to TRIANA through outpatient provider ([facility]) -Patient was counseled on the need for medication compliance and appropriate follow-up at mental health and also primary care for medical issues. Encouraged to follow-up with PCP specifically about persistently elevated total cholesterol and HDL. Patient verbalized understanding and agreed. -Social work to help coordinate patients discharge today. Social work also to arrange for patients follow up appointments with [facility] for psychiatric care along with follow up with primary care provider. -Patient counseled on abstaining from recreational drugs and marijuana and alcohol. Was informed/educated on the adverse effects on their physical and m ental health. Patient verbally agreed and understood. -Patient was instructed to return to the hospital or seek immediate medical care if their psychiatric or medical symptoms do worsen or reoccur. INSERT DATA FORMATS Patient Condition at Discharge: Fair Plan - Discharge Summary Discharge Rx Participant: No New Discharge Prescriptions: New ARIPiprazole [Abilify] 10 mg PO DAILY #30 tab Discharge Medication List ARIPiprazole [Abilify] 10 mg PO DAILY #30 tab 04/16/24 [Rx] Follow up Appointment(s)/Referral(s): [facility] [Outside] - 1 Week [facility] [Outside] - 04/20/24 2:00 pm (04/20/2024 2:00PM - 3:00PM [facility] 04/28/2024 9:30AM - 10:00AM [facility] ) Monica Henry MD [Primary Care Provider] - 1-2 days Patient Instructions/Handouts: How to Stop Smoking (DC), Bipolar Disorder (DC), Polysubstance Abuse (ED) Activity/Diet/Wound Care/Special Instructions: Avoid the use of street drugs and alcohol. Take all medications as prescribed. When you are in need of refills on your medications, please contact your medical provider and/or outpatient psychiatrist/provider to have this done. Please go to your scheduled outpatient appointment for aftercare treatment. If symptoms return or become worse, call the crisis line at and/or go to the nearest emergency room for evaluation. National Suicide Hotline 984 Discharge Disposition: HOME SELF-CARE
== END 2024-04-16 12:25 | disposition home or self-care (01) | DRG 775 ==
LOC: EC 11:09 → 3MHU 19:55
PROVIDERS: ADMIT Psychiatry & Neurology Psychiatry; ATTEND Psychiatry & Neurology Psychiatry
DX: F12.10 Cannabis abuse, uncomplicated (principal); F10.11 Alcohol abuse, in remission; F31.73 Bipolar disorder, in partial remission, most recent episode manic; Z11.52 Encounter for screening for COVID-19; F15.90 Other stimulant use, unspecified, uncomplicated; F43.10 Post-traumatic stress disorder, unspecified; R45.850 Homicidal ideations; R45.851 Suicidal ideations; F17.210 Nicotine dependence, cigarettes, uncomplicated; F17.290 Nicotine dependence, other tobacco product, uncomplicated; Z71.6 Tobacco abuse counseling; Z91.148 Patient's other noncompliance with medication regimen for other reason
CPT/HCPCS: 80053; 80061; 80306; 81003; 82075; 83036; 84443; 85025; 87635; 99285

== ENCOUNTER → 2024-11-04 | Outpatient (CLI) | payer OTHER ==
--- NOTE | 2024-11-04 09:38 | CTL ---
EXAMINATION TYPE: CT Low Dose Lung DATE OF EXAM ORDERED: 11/04/2024 COMPARISON: None CLINICAL INDICATION: Male, 49 years old with history of Z12.2 ENCNTR SCREEN FOR MALIGNANT NEOPLASM OF RESP; PHH, current smoker/vaper. 1 PPD x20 years., Lung cancer screening, History of Smoking/tobacco use. TECHNIQUE: Low dose computed tomography scan was performed through the chest at 1 mm thick sections a nd reconstructed images in multiple planes at 1 mm and [address] DLP: 103.[address] CTDI: 2.6 mGy Automated exposure control for dose reduction was used. CT DIAGNOSTIC QUALITY: Satisfactory FINDINGS: Nodules: Right lower lobe 4 mm nodular opacity (series 4, image 198). LUNGS: COPD: Severity: None Fibrosis: Severity: None Lymph nodes: None Other findings: Minimal linear scarring or atelectasis within the medial aspect of the right middle l obe. RIGHT PLEURAL SPACE: Effusion: None Calcification: None Thickening: None Pneumothorax: None LEFT PLEURAL SPACE: Effusion: None Calcification: None Thickening: None Pneumothorax: None HEART: Heart Size: Normal Coronary Calcification: None Pericardial Effusion: None OTHER FINDINGS: Upper abdomen: None Bony thorax: None Supraclavicular region: None Other: None IMPRESSION: Right middle lobe [address] LUNG RAD AND CT CHEST RECOMMENDATION: Lung-Rad 2 Benign Appearance or Behavior: Continue annual sc reening with LDCT in 12 months. S Modifier (other clinically significant findings): None [facility], , 11/04/2024 9:36 AM
== END | disposition home or self-care (01) ==
LOC: RADCTMAIN 08:37
PROVIDERS: ATTEND Family Medicine
DX: Z12.2 Encounter for screening for malignant neoplasm of respiratory organs (principal); F17.210 Nicotine dependence, cigarettes, uncomplicated; R91.8 Other nonspecific abnormal finding of lung field
CPT/HCPCS: 71271